=== PATIENT | female | born 1960 | race Caucasian/White ===

== ENCOUNTER 2016-04-06 21:14 | Emergency (ER) | payer MEDICAID, MEDICARE ==
[2016-04-06] MEDS ORDERED: MECLIZINE 12.5 MG TAB PO STA (22:01)
[2016-04-06] MEDS ORDERED: SODIUM CHLORIDE 0.9% 1,000 ML IV STA (22:01)
[2016-04-06 22:16] VITALS: RESP 20
[2016-04-06 22:30] LABS: Basophils % (A) 1 %; CH 31.4; CHCM 34.2; Eosinophils # (A) 0.2 k/uL (0-0.7); Eosinophils % (A) 4 %; HCT 40.6 % (34.0-46.0); Luc # (Auto) 0.14; Luc % (Auto) 2; Lymphocytes # (A) 1.2 k/uL (1.0-4.8); Lymphocytes % (A) 20 %; MCH 31.8 pg (25.0-35.0); MCHC 34.5 g/dL (31.0-37.0); MCV 92.1 fL (80.0-100.0); Mean Platelet Volume 7.5; Monocytes # (A) 0.5 k/uL (0-1.0); Monocytes % (A) 8 %; Neutrophils # (A) 3.9 k/uL (1.3-7.7); Neutrophils % (A) 66 %; RBC 4.41 m/uL (3.80-5.40); RDW 13.4 % (11.5-15.5); WBC (Perox) 5.88
--- NOTE | 2016-04-06 22:35 | ED ---
Dizziness HPI - General Chief Complaint: Dizziness Stated Complaint: SOB Time Seen by Provider: 04/06/16 21:38 Source: patient, EMS, RN notes reviewed Mode of arrival: EMS Limitations: no limitations - History of Present Illness Initial Comments: 56-year-old female presents to the emergency department with a chief complaint of dizziness. The patient states that today she started to feel dizzy. Patient states it started all of a sudden today. Patient states that she moves her head she feels the dizziness. Patient states she had an episode of blacking out as well. Patient states that she was feeling somewhat anxious in the exam. Patient states that she hasn't been sick lately. Patient states the chest, came on all of a sudden. Patient states she's never had anything like this before. Patient denies headache any falls traumas or injuries. Patient states that she is not currently having any other symptoms at this time. Patient denies any recent fever, chills, shortness of breath, chest pain, back pain, abdominal pain, nausea vomiting, numbness or tingling, dysuria or hematuria, constipation or diarrhea, headaches or visual changes, or any other current symptoms. - Related Data Home Medications Medication Instructions Recorded Confirmed Calcium Carbonate [Antacid] 600 mg PO DAILY 06/30/13 04/06/16 Flaxseed [Flaxseed Oil] 1,000 mg PO DAILY 06/30/13 04/06/16 Levothyroxine Sodium [Synthroid] 100 mcg PO DAILY 06/30/13 04/06/16 Montelukast [Singulair] 10 mg PO DAILY 06/30/13 04/06/16 Aclidinium [place] [Tudorza 1 puff PO RT-BID 04/06/16 04/06/16 Pressair] Aspirin 81 mg PO DAILY 04/06/16 04/06/16 Butalb/APAP/Caff 50-325-40Mg 1 tab PO Q4H PRN 04/06/16 04/06/16 [Fioricet 50-325-40] Magnesium 200 mg PO DAILY 04/06/16 04/06/16 Mometasone/Formoterol [Dulera 200 2 puff INHALATION RT-BID 04/06/16 04/06/16 Mcg/5 Mcg Inhaler] predniSONE 5 mg PO DAILY 04/06/16 04/06/16 Previous Rx's Medication Instructions Recorded Meclizine [Antivert] 12.5 mg PO Q6H #20 tablet 04/06/16 Allergies Allergy/AdvReac Type Severity Reaction Status Date / Time Iodinated Contrast Media - Allergy Itching Verified 04/06/16 22:34 Oral and [Iodinated Contrast Media - IV Dye] Review of Systems ROS Statement: Those systems with pertinent positive or pertinent negative responses have been documented in the HPI. ROS Other: All systems not noted in ROS Statement are negative. Past Medical History Past Medical History: Asthma, Cancer, GERD/Reflux, Hyperlipidemia Additional Past Medical History / Comment(s): BREAST CANCER History of Any Multi-Drug Resistant Organisms: None Reported Past Surgical History: Hysterectomy Additional Past Surgical History / Comment(s): mastectomy 2001, deviated septum Past Anesthesia/Blood Transfusion Reactions: No Reported Reaction Past Psychological History: Anxiety Smoking Status: Never smoker Past Alcohol Use History: Occasional Past Drug Use History: None Reported General Exam - General Exam Comments Initial Comments: General: The patient is awake and alert, in no distress, and does not appear acutely ill. Eye: Pupils are equal, round and reactive to light, extra-ocular movements are intact; there is normal conjunctiva bilaterally. No signs of icterus. Ears, nose, mouth and throat: There are moist mucous membranes and no oral lesions. Neck: The neck is supple, there is no tenderness. Cardiovascular: There is a regular rate and rhythm. No murmur, rub or gallop is appreciated. Respiratory: Lungs are clear to auscultation, respirations are non-labored, breath sounds are equal. No wheezes, stridor, rales, or rhonchi. Gastrointestinal: Soft, non-distended, non-tender abdomen without masses or organomegaly noted. There is no rebound or guarding present. No CVA tenderness. Bowel sounds are unremarkable. Back: There is no tenderness to palpation in the midline. There is no obvious deformity. No rashes noted. Musculoskeletal: Normal ROM, no tenderness, There is no pedal edema. There is no calf tenderness or swelling. Sensation intact. Pulses equal bilaterally 2+. Neurological: CN II-XII intact, There are no obvious motor or sensory deficits. Coordination appears grossly intact. Speech is normal. Negative Romberg's, no ataxia, normal [id number], equal strength throughout. Skin: Skin is warm and dry and no rashes or lesions are noted. Psychiatric: Cooperative, appropriate mood & affect, normal judgment. Limitations: no limitations Course Vital Signs 04/06/16 04/06/16 04/06/16 21:18 22:15 23:18 Temperature 97.6 F 98.4 F 97.7 F Pulse Rate 88 79 83 Respiratory 18 20 20 Rate Blood Pressure 154/92 129/79 131/77 O2 Sat by Pulse 95 92 L 94 L Oximetry EKG Findings - EKG Comments: EKG Findings:: Number sinus rhythm, possible left atrial enlargement, ventricular rate 90 WI interval 156 Medical Decision Making - Medical Decision Making 56-year-old female presents emergency department with a chief complaint of dizziness. At this time patient's vertigo has completely resolved. Patient's workup was otherwise benign. We did discuss that we'll start Antivert for home. Discussed comparison follow-up. Patient stated she understood all questions were answered. She'll be discharged. - Lab Data Result diagrams: 04/06/16 22:11 04/06/16 22:11 Lab Results 04/06/16 04/06/16 04/06/16 Range/Units 22:11 22:11 22:11 WBC 6.0 (3.8-10.6) k/uL RBC 4.41 (3.80-5.40) m/uL Hgb 14.0 (11.4-16.0) gm/dL Hct 40.6 (34.0-46.0) % MCV 92.1 (80.0-100.0) fL MCH 31.8 (25.0-35.0) pg MCHC 34.5 (31.0-37.0) g/dL RDW 13.4 (11.5-15.5) % Plt Count 199 (150-450) k/uL Neutrophils % 66 % Lymphocytes % 20 % Monocytes % 8 % Eosinophils % 4 % Basophils % 1 % Neutrophils # 3.9 (1.3-7.7) k/uL Lymphocytes # 1.2 (1.0-4.8) k/uL Monocytes # 0.5 (0-1.0) k/uL Eosinophils # 0.2 (0-0.7) k/uL Basophils # 0.0 (0-0.2) k/uL PT (9.0-12.0) sec INR (<1.1) APTT (22.0-30.0) sec Sodium 141 (137-145) mmol/L Potassium 4.2 (3.5-5.1) mmol/L Chloride 110 H (98-107) mmol/L Carbon Dioxide 21 L (22-30) mmol/L Anion Gap 10 mmol/L BUN 13 (7-17) mg/dL Creatinine 0.64 (0.52-1.04) mg/dL Est GFR (MDRD) Af Amer >60 (>60 ml/min/1.73 sqM) Est GFR (MDRD) Non-Af >60 (>60 ml/min/1.73 sqM) Glucose 92 (74-99) mg/dL Calcium 9.0 (8.4-10.2) mg/dL Magnesium 1.9 (1.6-2.3) mg/dL Total Bilirubin 0.8 (0.2-1.3) mg/dL AST 51 H (14-36) U/L ALT 50 (9-52) U/L Alkaline Phosphatase 81 (38-126) U/L Total Creatine Kinase 140 H (30-135) U/L CK-MB (CK-2) 1.0 (0.0-2.4) ng/mL CK-MB (CK-2) Rel Index 0.7 Troponin I 0.014 (0.000-0.034) ng/mL Total Protein 6.9 (6.3-8.2) g/dL Albumin 4.0 (3.5-5.0) g/dL Urine Color Urine Appearance (Clear) Urine pH (5.0-8.0) Ur Specific [place] (1.001-1.035) Urine Protein (Negative) Urine Glucose (UA) (Negative) Urine Ketones (Negative) Urine Blood (Negative) Urine Nitrate (Negative) Urine Bilirubin (Negative) Urine Urobilinogen (<2.0) mg/dL Ur Leukocyte Esterase (Negative) 04/06/16 04/06/16 Range/Units 22:11 22:23 WBC (3.8-10.6) k/uL RBC (3.80-5.40) m/uL Hgb (11.4-16.0) gm/dL Hct (34.0-46.0) % MCV (80.0-100.0) fL MCH (25.0-35.0) pg MCHC (31.0-37.0) g/dL RDW (11.5-15.5) % Plt Count (150-450) k/uL Neutrophils % % Lymphocytes % % Monocytes % % Eosinophils % % Basophils % % Neutrophils # (1.3-7.7) k/uL Lymphocytes # (1.0-4.8) k/uL Monocytes # (0-1.0) k/uL Eosinophils # (0-0.7) k/uL Basophils # (0-0.2) k/uL PT 10.7 (9.0-12.0) sec INR 1.1 (<1.1) APTT 24.0 (22.0-30.0) sec Sodium (137-145) mmol/L Potassium (3.5-5.1) mmol/L Chloride (98-107) mmol/L Carbon Dioxide (22-30) mmol/L Anion Gap mmol/L BUN (7-17) mg/dL Creatinine (0.52-1.04) mg/dL Est GFR (MDRD) Af Amer (>60 ml/min/1.73 sqM) Est GFR (MDRD) Non-Af (>60 ml/min/1.73 sqM) Glucose (74-99) mg/dL Calcium (8.4-10.2) mg/dL Magnesium (1.6-2.3) mg/dL Total Bilirubin (0.2-1.3) mg/dL AST (14-36) U/L ALT (9-52) U/L Alkaline Phosphatase (38-126) U/L Total Creatine Kinase (30-135) U/L CK-MB (CK-2) (0.0-2.4) ng/mL CK-MB (CK-2) Rel Index Troponin I (0.000-0.034) ng/mL Total Protein (6.3-8.2) g/dL Albumin (3.5-5.0) g/dL Urine Color Colorless Urine Appearance Clear (Clear) Urine pH 6.5 (5.0-8.0) Ur Specific [place] 1.001 (1.001-1.035) Urine Protein Negative (Negative) Urine Glucose (UA) Negative (Negative) Urine Ketones Negative (Negative) Urine Blood Negative (Negative) Urine Nitrate Negative (Negative) Urine Bilirubin Negative (Negative) Urine Urobilinogen <2.0 (<2.0) mg/dL Ur Leukocyte Esterase Negative (Negative) Disposition Clinical Impression: Vertigo Disposition: HOME SELF-CARE Condition: Stable Instructions: Vertigo (ED) Additional Instructions: Please use medication as discussed. Please follow up with family doctor if symptoms have not improved over the next two days. Please return to the emergency room if your symptoms increase or worsen or for any other concerns. Prescriptions: Meclizine [Antivert] 12.5 mg PO Q6H #20 tablet Referrals: Errol Mccollum MD [Primary Care Provider] - 1-2 days Time of Disposition: 23:29
[2016-04-06 22:41] LABS: Appearance,Urine Clear (Clear); Bilirubin,Urine Negative (Negative); Glucose,Urine (UA) Negative (Negative); Ketones,Urine Negative (Negative); Leukocyte Esterase,Urine Negative (Negative); Nitrite,Urine Negative (Negative); PH, Urine 6.5 (5.0-8.0); Protein,Urine Negative (Negative); Specific Gravity,Urine 1.001 (1.001-1.035); UA Billing (MACRO vs. MICRO) CHEM; Urobilinogen,Urine <2.0 mg/dL (<2.0)
[2016-04-06 22:47] LABS: ALT 50 U/L (9-52); Alkaline Phosphatase 81 U/L (38-126); Anion Gap 10 mmol/L; Blood Urea Nitrogen 13 mg/dL (7-17); Carbon Dioxide 21 mmol/L (22-30); Chloride 110 mmol/L (98-107); Glucose 92 mg/dL (74-99); Magnesium 1.9 mg/dL (1.6-2.3); Non-African American GFR(MDRD) >60 (>60 ml/min/1.73 sqM); Sodium 141 mmol/L (137-145); Total Bilirubin 0.8 mg/dL (0.2-1.3); Total Protein 6.9 g/dL (6.3-8.2)
[2016-04-06 22:49] LABS: INR 1.1 (<1.1); Prothrombin Time 10.7 sec (9.0-12.0)
[2016-04-06 22:59] LABS: AST 51 U/L (14-36); Potassium 4.2 mmol/L (3.5-5.1)
--- NOTE | 2016-04-06 22:59 | CT ---
EXAMINATION TYPE: CT brain wo con DATE OF EXAM: 04/06/2016 10:50 PM COMPARISON: NONE HISTORY: Pt states of dizziness today. CT DLP: 1067.0 mGycm Automated exposure control for dose reduction was used. FINDINGS: There is no acute intracranial hemorrhage, mass effect, or midline shift identified. The ventricles and sulci are within normal limits in size. Mild benign-appearing basal ganglion calcification is not ed bilaterally. The globes are intact. Mucous retention cyst is noted in the left maxillary sinus with chronic sinusitis changes. Mild mucos al thickening is noted in the right maxillary sinus and ethmoid sinuses.. IMPRESSION: No acute intracranial hemorrhage, mass effect, or midline shift is seen. Chronic sinusitis changes.
--- NOTE | 2016-04-06 23:10 | XR ---
EXAMINATION TYPE: XR chest 2V DATE OF EXAM: 04/06/2016 10:47 PM COMPARISON: 08/31/2014 HISTORY: Chest pain. TECHNIQUE: Frontal and lateral views of the chest are obtained. FINDINGS: The study is limited due to multiple artifacts. Increased opacities of both lungs are most likely rel ated to superimposed breast tissue and pectus excavatum changes. There are also surgical clips in the right axilla with possible right breast surgery and implant changes. Changes. There is no focal air space opacity, pleural effusion, or pneumothorax seen. There is mild cardiomegaly. Atherosclerotic ca lcification is noted in the aortic arch.. Mild to moderate degenerative changes in the thoracic spi ne. The osseous structures are intact. IMPRESSION: 1. No definite focal pneumonia. 2. Postsurgical changes of right breast and right breast implant in place. 3. Pectus excavatum changes.
[2016-04-06 23:14] LABS: Troponin I 0.014 ng/mL (0.000-0.034)
[2016-04-06 23:19] VITALS: BP 131/77; PULSE 83; TEMP 97.7
== END 2016-04-06 23:39 | disposition home or self-care (01) ==
LOC: EC 21:14
DX: R42 Dizziness and giddiness (principal); Z79.899 Other long term (current) drug therapy; Z91.041 Radiographic dye allergy status; Z79.82 Long term (current) use of aspirin; Z79.51 Long term (current) use of inhaled steroids; Z79.52 Long term (current) use of systemic steroids; Z85.3 Personal history of malignant neoplasm of breast
CPT/HCPCS: 36415; 70450; 71020; 80053; 81003; 82550; 82553; 83735; 84484; 85025; 85610; 85730; 93005; 96360; 99285

== ENCOUNTER 2016-06-22 12:00 | Day surgery (SDC) | payer MEDICAID, MEDICARE ==
[2016-06-21 08:56] VITALS: BMI 23.5
[~2016-06-22 12:00] MED LIST: LACTATED RINGERS 1,000 ML IV SCH; LIDOCAINE 1% 20 ML VIAL (10MG/ML) FOR IV START INTRADERMA PRN
[2016-06-22 12:56] VITALS: TEMP 96.7
[2016-06-22] MEDS ORDERED: PROPOFOL 10 MG/ML 20 ML VIAL IV ONE (14:28)
[2016-06-22 15:04] VITALS: RESP 18
--- NOTE | 2016-06-22 15:05 | P.PCN ---
Date of Procedure: 06/22/16 Procedure(s) Performed: Procedures: 1. Esophagogastroduodenoscopy and biopsy. 2. Total colonoscopy. Preoperative diagnosis: 1. Chronic reflux symptoms. 2. History of polyps and recent change in bowel habits. Postoperative diagnosis: 1. Small sliding hiatal hernia with no obvious esophagitis or complicated reflux disease. 2. Mild antral gastritis. 3. Sigmoid diverticulosis. Preparation: HalfLytely prep. Sedation: Was provided by anesthesia. Brief clinical history: The patient is a 56-year-old female who is referred for this evaluation for the above reasons. She has history of polyps and her last colonoscopy was around 3 years ago. In addition she has chronic reflux symptoms requiring therapy but no alarm symptoms. Within the last month or so she has been having alternating diarrhea and constipation. Procedure: With the patient on her left lateral decubitus position and after informed consent and adequate sedation, I passed the Olympus-GIF 160 video upper endoscope through the cricopharyngeus down the esophagus. EG junction was around 40 cm from the incisors and there was a small sliding hiatal hernia but no obvious esophagitis or complicated reflux disease. The endoscope was then passed into the stomach which was insufflated with air and inspected in detail including the retroflex view in the cardia. There was some mottling and erythema in the antrum but no ulcers or erosions. Pyloric channel did not show any ulcers. Duodenal bulb, post bulbar area and descending duodenum showed minimal erythema. I obtained multiple biopsies from the duodenum, antrum and esophagus then the endoscope was withdrawn and I proceeded to do colonoscopy. Perianal area did not show any fissures or fistulas. There were no masses felt on digital rectal examination. The Olympus CFQ 160L video colonoscope was then inserted in the rectum in the usual fashion and advanced to the cecum. The preparation was less than ideal with some sticky secretions and fecal debris noted in certain areas not possible to cleanse completely. No obvious polyps or tumors were seen. Where visualized, the mucosa appeared healthy with no edema, erythema, friability, ulceration, exudation or spontaneous bleeding. Multiple diverticular orifices were seen scattered in the sigmoid with no evidence of acute diverticulitis or strictures. I retroflexed the endoscope in the rectum before the endoscope was withdrawn. The patient tolerated the procedure well. Plan: The patient was reassured. Discussed dietary measures. She will follow- up with you as planned and I recommended repeat colonoscopy in 3 years.
[2016-06-22 15:20] VITALS: BP 119/79; PULSE 72
== END 2016-06-22 15:32 | disposition home or self-care (01) ==
LOC: ORWHC2ENDO 12:00
DX: K21.0 Gastro-esophageal reflux disease with esophagitis (principal); K20.0 Eosinophilic esophagitis; K29.50 Unspecified chronic gastritis without bleeding; K44.9 Diaphragmatic hernia without obstruction or gangrene; K57.30 Diverticulosis of large intestine without perforation or abscess without bleeding; Z86.010 Personal history of colon polyps; J45.909 Unspecified asthma, uncomplicated; E07.9 Disorder of thyroid, unspecified; Z79.891 Long term (current) use of opiate analgesic; Z79.51 Long term (current) use of inhaled steroids; Z79.899 Other long term (current) drug therapy; Z91.041 Radiographic dye allergy status
CPT/HCPCS: 88305; 88342; 45378; 43239; J2704

== ENCOUNTER → 2016-08-31 | Outpatient (CLI) | payer MEDICAID, MEDICARE ==
--- NOTE | 2016-09-01 11:10 | ECHOF ---
Referral Reason:R55 Syncope MEASUREMENTS -------- HEIGHT: 170.2 cm WEIGHT: 68.9 kg BP: RVIDd: 2.2 cm (< 3.3) IVSd: 1.1 cm (0.6 - 1.1) LVIDd: 4.4 cm (3.9 - 5.3) LVPWd: 1.0 cm (0.6 - 1.1) IVSs: 1.2 cm LVIDs: 3.2 cm LVPWs: 1.1 cm LA Diam: 2.9 cm (2.7 - 3.8) LAESV Index (A-L): 22.40 ml/m MV EXCURSION: 16.399 mm (> 18.000) MV EF SLOPE: 74 mm/s (70 - 150) EPSS: 0.8 cm MV E Toño: 0.39 m/s MV DecT: 212 ms MV A Toño: 0.58 m/s MV E/A Ratio: 0.67 RAP: 5.00 mmHg RVSP: 24.64 mmHg FINDINGS -------- Sinus rhythm. This was a technically adequate study. Pt. Has Breast inplants LV size, wall thickness and systolic function are normal, with an EF greater than 55%. The right ventricle is normal in size. Normal LA size by volume 22+/-6 ml/m2. The right atrial size is normal. Highly mobile atrial septum The aortic valve is trileaflet, and appears structurally normal. No aortic stenosis or regurgitation. The mitral valve leaflets are mildly thickened. Mild mitral regurgitation is present. Mild tricuspid regurgitation present. There is no evidence of pulmonary hypertension. The right ventricular systolic pressure, as measured by Doppler, is 24.64mmHg. Trace/mild (physiologic) pulmonic regurgitation. The aortic root size is normal. Echo free space may represent effusion or a pericardial fat pad. CONCLUSIONS -------- 1. This was a technically adequate study. 2. There is no evidence of pulmonary hypertension. 3. Trace/mild (physiologic) pulmonic regurgitation. 4. The aortic root size is normal. 5. Echo free space may represent effusion or a pericardial fat pad. 6. Pt. Has Breast inplants 7. LV size, wall thickness and systolic function are normal, with an EF greater than 55%. 8. Normal LA size by volume 22+/-6 ml/m2. 9. Highly mobile atrial septum 10. The aortic valve is trileaflet, and appears structurally normal. No aortic stenosis or regurgitation. 11. The mitral valve leaflets are mildly thickened. 12. Mild mitral regurgitation is present. 13. Mild tricuspid regurgitation present. [employer] MANAGER: Anna Espinoza RDCS
== END | disposition home or self-care (01) ==
LOC: RADECHMAIN 13:03
PROVIDERS: ATTEND Family Medicine
DX: I08.1 Rheumatic disorders of both mitral and tricuspid valves (principal)
CPT/HCPCS: 93306

== ENCOUNTER 2016-09-22 10:20 | Emergency (ER) | payer MEDICAID, MEDICARE ==
[2016-09-22 10:43] VITALS: TEMP 98
[2016-09-22] MEDS ORDERED: methylPREDNISolone SOD SUCCI 125 MG/2 ML VIAL IV STA (11:25)
[2016-09-22] MEDS ORDERED: IPRATROPIUM-ALBUTEROL 3 ML NEB INHALATION STA (11:25)
--- NOTE | 2016-09-22 11:29 | ED ---
General Adult HPI - General Chief complaint: Shortness of Breath Stated complaint: RAQUEL Time Seen by Provider: 09/22/16 11:18 Source: patient, RN notes reviewed Mode of arrival: ambulatory Limitations: no limitations - History of Present Illness Initial comments: Patient is a pleasant 56-year-old female presenting to the emergency department with difficulty in breathing. Onset of symptoms was a couple of days ago however worse today. Patient took her inhaler at home without much improvement. Patient has had sinus congestion. Patient did have a headache earlier today that she attributes to her sinus pressure. Headache is near resolved at this point. No fevers. Occasional dry cough. No chest pain. No abdominal pain. Dyspnea does feel like previous asthma history. - Related Data Home Medications Medication Instructions Recorded Confirmed Flaxseed [Flaxseed Oil] 1,000 mg PO DAILY 06/30/13 09/22/16 Levothyroxine Sodium [Synthroid] 100 mcg PO DAILY 06/30/13 09/22/16 Montelukast [Singulair] 10 mg PO DAILY 06/30/13 09/22/16 Aspirin 81 mg PO DAILY 04/06/16 09/22/16 Magnesium 200 mg PO DAILY 04/06/16 09/22/16 Mometasone/Formoterol [Dulera 200 2 puff INHALATION RT-BID 04/06/16 09/22/16 Mcg/5 Mcg Inhaler] Atorvastatin Calcium [Lipitor] 20 mg PO DAILY 09/22/16 09/22/16 Calcium Carbonate [Calcium] 1,200 mg PO DAILY 09/22/16 09/22/16 Previous Rx's Medication Instructions Recorded Azithromycin [Zithromax Z-pack] 250 mg PO DIRECTED #6 tab 09/22/16 predniSONE 20 mg PO BID #10 tab 09/22/16 Allergies Allergy/AdvReac Type Severity Reaction Status Date / Time Iodinated Contrast- Oral and Allergy Itching Verified 09/22/16 11:36 IV Dye [Iodinated Contrast Media - IV Dye] Review of Systems ROS Statement: Those systems with pertinent positive or pertinent negative responses have been documented in the HPI. ROS Other: All systems not noted in ROS Statement are negative. Constitutional: Denies: fever, chills Eyes: Denies: eye pain ENT: Reports: congestion. Denies: ear pain Respiratory: Reports: cough, dyspnea Cardiovascular: Denies: chest pain Endocrine: Denies: fatigue Gastrointestinal: Denies: abdominal pain Genitourinary: Denies: dysuria Musculoskeletal: Denies: back pain Skin: Denies: rash Neurological: Denies: weakness Past Medical History Past Medical History: Asthma, Cancer, GERD/Reflux, Hyperlipidemia Additional Past Medical History / Comment(s): BREAST CANCER History of Any Multi-Drug Resistant Organisms: None Reported Past Surgical History: Hysterectomy Additional Past Surgical History / Comment(s): mastectomy 2002, deviated septum Past Anesthesia/Blood Transfusion Reactions: No Reported Reaction Past Psychological History: No Psychological Hx Reported Smoking Status: Never smoker Past Alcohol Use History: None Reported Past Drug Use History: None Reported - Past Family History Mother Family Medical History: No Reported History General Exam Limitations: no limitations General appearance: alert, in no apparent distress Head exam: Present: atraumatic Eye exam: Present: normal appearance, PERRL, EOMI ENT exam: Present: normal oropharynx, other (Tenderness over the bilateral maxillary sinuses) Neck exam: Present: normal inspection Respiratory exam: Present: wheezes. Absent: respiratory distress Cardiovascular Exam: Present: regular rate, normal rhythm GI/Abdominal exam: Present: soft. Absent: tenderness Extremities exam: Present: normal inspection. Absent: pedal edema, calf tenderness Neurological exam: Present: alert, CN II-XII intact. Absent: motor sensory deficit Expanded Speech: Present: fluid speech Cranial nerves: EOM's Intact: Normal, Facial Sensation: Normal Sensory exam: Upper Extremity Light Touch: Normal, Lower Extremity Light Touch: Normal Motor strength exam: RUE: 5, LUE: 5, RLE: 5, LLE: 5 Eye Response: (4) open spontaneously Motor Response: (6) obeys commands Verbal Response: (5) oriented Psychiatric exam: Present: normal affect, normal mood Skin exam: Present: normal color Course Vital Signs 09/22/16 09/22/16 09/22/16 10:40 11:35 11:44 Temperature 98 F Pulse Rate 88 76 78 Respiratory 18 Rate Blood Pressure 160/99 O2 Sat by Pulse 90 L Oximetry 09/22/16 11:56 Temperature Pulse Rate 78 Respiratory 18 Rate Blood Pressure 144/94 O2 Sat by Pulse 94 L Oximetry EKG Findings - EKG Comments: EKG Findings:: Normal sinus rhythm 77. AL 150. QRS 88. QT 396. QTc 440. Normal axis. Normal QRS. No acute ST change. Medical Decision Making - Medical Decision Making Patient reevaluated and resting comfortably in bed. Patient states she feels much better and requests discharge home. Lung laurent still with mild expiratory wheeze. Patient does not want another breathing treatment at this time. Pulse ox 94% on room air. Patient states she does have nebulizers at home that she will continue to use. - Lab Data Result diagrams: 09/22/16 10:55 09/22/16 10:55 Lab Results 09/22/16 09/22/16 Range/Units 10:55 10:55 WBC 6.2 (3.8-10.6) k/uL RBC 5.10 (3.80-5.40) m/uL Hgb 15.9 (11.4-16.0) gm/dL Hct 44.9 (34.0-46.0) % MCV 88.1 (80.0-100.0) fL MCH 31.1 (25.0-35.0) pg MCHC 35.3 (31.0-37.0) g/dL RDW 13.5 (11.5-15.5) % Plt Count 245 (150-450) k/uL Neutrophils % 44 % Lymphocytes % 23 % Monocytes % 7 % Eosinophils % 23 % Basophils % 1 % Neutrophils # 2.8 (1.3-7.7) k/uL Lymphocytes # 1.4 (1.0-4.8) k/uL Monocytes # 0.4 (0-1.0) k/uL Eosinophils # 1.4 H (0-0.7) k/uL Basophils # 0.0 (0-0.2) k/uL Manual Slide Review Performed RBC Morphology Normal Sodium 145 (137-145) mmol/L Potassium 4.4 (3.5-5.1) mmol/L Chloride 109 H (98-107) mmol/L Carbon Dioxide 24 (22-30) mmol/L Anion Gap 12 mmol/L BUN 11 (7-17) mg/dL Creatinine 0.60 (0.52-1.04) mg/dL Est GFR (MDRD) Af Amer >60 (>60 ml/min/1.73 sqM) Est GFR (MDRD) Non-Af >60 (>60 ml/min/1.73 sqM) Glucose 87 (74-99) mg/dL Calcium 9.8 (8.4-10.2) mg/dL Total Bilirubin 0.7 (0.2-1.3) mg/dL AST 33 (14-36) U/L ALT 39 (9-52) U/L Alkaline Phosphatase 104 (38-126) U/L Total Protein 7.3 (6.3-8.2) g/dL Albumin 4.4 (3.5-5.0) g/dL - Radiology Data Radiology results: image reviewed (Chest x-ray shows no acute process) Disposition Clinical Impression: Asthma with exacerbation, Sinusitis Disposition: HOME SELF-CARE Condition: Stable Instructions: Asthma (ED), Sinusitis (ED) Additional Instructions: Please follow-up with your primary care physician in the next day or 2 for recheck. Return for difficulty breathing, fevers, worsening symptoms or other concerns. Prescriptions: Azithromycin [Zithromax Z-pack] 250 mg PO DIRECTED #6 tab predniSONE 20 mg PO BID #10 tab Referrals: Errol Mccollum MD [Primary Care Provider] - 1-2 days Time of Disposition: 12:23
[2016-09-22 11:38] LABS: Basophils % (A) 1 %; CH 30.3; CHCM 34.6; Eosinophils # (A) 1.4 k/uL (0-0.7); Eosinophils % (A) 23 %; HCT 44.9 % (34.0-46.0); HDW 2.86; HGB 15.9 gm/dL (11.4-16.0); Luc # (Auto) 0.16; Luc % (Auto) 3; Lymphocytes # (A) 1.4 k/uL (1.0-4.8); Lymphocytes % (A) 23 %; MCH 31.1 pg (25.0-35.0); MCHC 35.3 g/dL (31.0-37.0); MCV 88.1 fL (80.0-100.0); Mean Platelet Volume 7.2; Monocytes # (A) 0.4 k/uL (0-1.0); Monocytes % (A) 7 %; Neutrophils # (A) 2.8 k/uL (1.3-7.7); Neutrophils % (A) 44 %; RDW 13.5 % (11.5-15.5); WBC 6.2 k/uL (3.8-10.6); WBC (Perox) 6.26
[2016-09-22 11:47] LABS: ALT 39 U/L (9-52); AST 33 U/L (14-36); Alkaline Phosphatase 104 U/L (38-126); Anion Gap 12 mmol/L; Blood Urea Nitrogen 11 mg/dL (7-17); Calcium 9.8 mg/dL (8.4-10.2); Carbon Dioxide 24 mmol/L (22-30); Chloride 109 mmol/L (98-107); Glucose 87 mg/dL (74-99); Non-African American GFR(MDRD) >60 (>60 ml/min/1.73 sqM); Potassium 4.4 mmol/L (3.5-5.1); Sodium 145 mmol/L (137-145); Total Bilirubin 0.7 mg/dL (0.2-1.3); Total Protein 7.3 g/dL (6.3-8.2)
[2016-09-22 11:53] LABS: Manual Review Performed
[2016-09-22 11:54] LABS: RBC Morphology Normal
--- NOTE | 2016-09-22 12:01 | XR ---
EXAMINATION TYPE: XR chest 2V DATE OF EXAM: 09/22/2016 COMPARISON: 04/06/2016 INDICATION: Difficulty breathing, short of breath, headache TECHNIQUE: Frontal and lateral views of the chest are obtained. FINDINGS: The heart size is normal. The pulmonary vasculature is normal. Lung laurent are clear. Pectus excavatum is present. IMPRESSION: 1. No acute pulmonary process.
[2016-09-22 12:38] VITALS: BP 143/94; PULSE 86; RESP 20
== END 2016-09-22 12:38 | disposition home or self-care (01) ==
LOC: EC 10:20
DX: J45.901 Unspecified asthma with (acute) exacerbation (principal); J32.0 Chronic maxillary sinusitis; E78.5 Hyperlipidemia, unspecified; Z85.3 Personal history of malignant neoplasm of breast; Z91.041 Radiographic dye allergy status; Z79.51 Long term (current) use of inhaled steroids; Z79.82 Long term (current) use of aspirin; Z79.899 Other long term (current) drug therapy
CPT/HCPCS: 99285; 96374; 36415; 94640; 93005; 80053; 85025; 71020; J2930

== ENCOUNTER → 2016-10-24 | Outpatient (CLI) | payer MEDICAID, MEDICARE ==
--- NOTE | 2016-10-24 12:40 | ECHOF ---
Referral Reason:R93.1 Nonspecific (Abnormal) Findings MEASUREMENTS -------- HEIGHT: 170.2 cm WEIGHT: 68.0 kg BP: RVIDd: 2.4 cm (< 3.3) IVSd: 0.9 cm (0.6 - 1.1) LVIDd: 4.4 cm (3.9 - 5.3) LVPWd: 1.0 cm (0.6 - 1.1) EDV(Teich): 86 ml IVSs: 1.2 cm LVIDs: 3.5 cm LVPWs: 1.1 cm %IVS Thck: 27 % ESV(Teich): 52 ml EF(Teich): 40 % %FS: 19 % SV(Teich): 34 ml LA Diam: 2.8 cm (2.7 - 3.8) LALs A4C: 5.0 cm LAAs A4C: 16.8 cm LAESV A-L A4C: 47 ml LAESV MOD A4C: 37 ml Ao Diam: 2.3 cm (2.0 - 3.7) LA Diam: 3.5 cm (2.7 - 3.8) MV EXCURSION: 19.740 mm (> 18.000) MV EF SLOPE: 121 mm/s (70 - 150) EPSS: 0.3 cm MV E Toño: 0.25 m/s MV DecT: 187 ms MV Dec Boyd: 1.4 m/s MV A Toño: 0.58 m/s MV E/A Ratio: 0.44 MV PHT: 54 ms E/E': 3.89 E': 0.07 m/s AV Vmax: 1.05 m/s AV maxP.42 mmHg TR Vmax: 1.19 m/s TR maxP.65 mmHg RAP: 5.00 mmHg RVSP: 10.65 mmHg FINDINGS -------- Undetermined rhythm. This was a technically adequate study. Pt. Has Breast inplants LV size, wall thickness and systolic function are normal, with an EF greater than 55%. The right ventricle is normal in size. The left atrial size is normal. The right atrial size is normal. There is mild aortic valve sclerosis. There is no evidence of aortic regurgitation. Mild mitral annular calcification present. Mild mitral regurgitation is present. Mild tricuspid regurgitation present. There is no evidence of pulmonary hypertension. The right ventricular systolic pressure, as measured by Doppler, is 10.65mmHg. There is no pulmonic regurgitation present. Echo free space indicative of a pericardial fat pad. CONCLUSIONS -------- 1. Pt. Has Breast inplants 2. Echo free space indicative of a pericardial fat pad. 3. LV size, wall thickness and systolic function are normal, with an EF greater than 55%. 4. There is mild aortic valve sclerosis. 5. Mild mitral annular calcification present. 6. Mild mitral regurgitation is present. 7. Mild tricuspid regurgitation present. 8. There is no evidence of pulmonary hypertension. 9. The right ventricular systolic pressure, as measured by Doppler, is 10.65mmHg. 10. There is no pulmonic regurgitation present. RAIL ASSEMBLER: Anna Espinoza RDCS
== END | disposition home or self-care (01) ==
LOC: RADECHMAIN 10:56
PROVIDERS: ATTEND Nurse Practitioner Adult Health
DX: I34.0 Nonrheumatic mitral (valve) insufficiency (principal); I07.1 Rheumatic tricuspid insufficiency; I35.8 Other nonrheumatic aortic valve disorders
CPT/HCPCS: 93306

== ENCOUNTER → 2017-01-15 | Outpatient (CLI) | payer MEDICAID, MEDICARE ==
--- NOTE | 2017-01-16 07:43 | MM ---
Reason for exam: additional evaluation requested from prior study. Last mammogram was performed 1 year and 4 months ago. History: Patient is postmenopausal, has history of breast cancer at age 40, and has history of other cancer at age 40. Implant in the right breast, 2001. Reconstruction of the right breast, 2001. Mastectomy of the right breast, 2001. Chemotherapy, 2001. Saline implants in both breasts, 1994. Took estrogen for 1 year beginning at age 39. Took antineoplastic for 8 years beginning at age 40. Physical Findings: Nurse did not find any significant physical abnormalities on exam. MG 3D Diag Mammo Imp W/Cad LT CC, MLO, ID, spot compression CC, and spot compression MLO view(s) were taken of the left breast. Prior study comparison: September 30, 2015, left breast MG diag mamm implant LT w CAD. March 08, 2015, left breast MG 3d diag mammo imp w/cad LT. There are scattered fibroglandular densities. Post surgical changes in the left breast with a saline implant. On the lelo view, there is a nodular asymmetry inferiorly that disperses on 3D spot. Precautionary 6 month follow up recommended. These results were verbally communicated with the patient and result sheet given to the patient on 01/15/17. ASSESSMENT: Probably benign, BI-RAD 3 RECOMMENDATION: Follow-up diagnostic mammogram of the left breast in 6 months. LAWRENCED
== END | disposition home or self-care (01) ==
LOC: RADMAMWWP 13:37
PROVIDERS: ATTEND Family Medicine
DX: R92.8 Other abnormal and inconclusive findings on diagnostic imaging of breast (principal)
CPT/HCPCS: G0206; G0279

== ENCOUNTER → 2017-08-28 | Outpatient (CLI) | payer MEDICAID, MEDICARE ==
--- NOTE | 2017-08-28 13:46 | MM ---
Reason for exam: follow-up at short interval from prior study. Last mammogram was performed 7 months ago. History: Patient is postmenopausal, has history of breast cancer at age 40, and has history of other cancer at age 40. Implant in the right breast, 2001. Reconstruction of the right breast, 2001. Mastectomy of the right breast, 2001. Chemotherapy, 2001. Saline implants in both breasts, 1994. Took estrogen for 1 year beginning at age 39. Took antineoplastic for 8 years beginning at age 40. Physical Findings: Nurse did not find any significant physical abnormalities on exam. MG 3D Diag Mammo Imp W/Cad LT CC and MLO view(s) were taken of the left breast. Prior study comparison: January 15, 2017, left breast MG 3d diag mammo imp w/cad LT. September 30, 2015, left breast MG diag mamm implant LT w CAD. There are scattered fibroglandular densities. There is no discrete abnormality. Subglandular implants in the left breast redemonstrated. These results were verbally communicated with the patient and result sheet given to the patient on 08/28/17. ASSESSMENT: Benign, BI-RAD 2 RECOMMENDATION: Follow-up diagnostic mammogram of the left breast in 1 year.
== END | disposition home or self-care (01) ==
LOC: RADMAMWWP 12:54
PROVIDERS: ATTEND Family Medicine
DX: R92.8 Other abnormal and inconclusive findings on diagnostic imaging of breast (principal)
CPT/HCPCS: 77061; 77065

== ENCOUNTER 2017-09-11 09:34 | Observation (INO) | payer MEDICAID, MEDICARE ==
[2017-09-11 10:30] LABS: INR 1.1 (<1.2); Partial Thromboplastin Time 23.9 sec (22.0-30.0); Prothrombin Time 10.5 sec (9.0-12.0)
[2017-09-11 10:32] LABS: Basophils % (A) 0 %; Eosinophils # (A) 1.3 k/uL (0-0.7); Eosinophils % (A) 19 %; HCT 43.5 % (34.0-46.0); HGB 14.7 gm/dL (11.4-16.0); Lymphocytes # (A) 1.6 k/uL (1.0-4.8); Lymphocytes % (A) 25 %; MCH 30.8 pg (25.0-35.0); MCHC 33.9 g/dL (31.0-37.0); MCV 90.9 fL (80.0-100.0); Mean Platelet Volume 7.6; Monocytes # (A) 0.5 k/uL (0-1.0); Monocytes % (A) 7 %; Neutrophils % (A) 46 %; Platelet Count 216 k/uL (150-450); RBC 4.79 m/uL (3.80-5.40); RDW 13.6 % (11.5-15.5); WBC 6.6 k/uL (3.8-10.6)
--- NOTE | 2017-09-11 10:37 | XR ---
EXAMINATION TYPE: XR chest 2V DATE OF EXAM: 09/11/2017 COMPARISON: 09/22/2016 HISTORY: Chest pain TECHNIQUE: Frontal and lateral views of the chest are obtained. FINDINGS: There is no focal air space opacity, pleural effusion, or pneumothorax seen. The cardiac silhouette size is within normal limits. The osseous structures are intact. There is redemonstratio n of pectus excavatum and postsurgical changes of the right breast/axilla. IMPRESSION: No acute cardiopulmonary process.
[2017-09-11 10:40] LABS: ALT 31 U/L (9-52); AST 29 U/L (14-36); Albumin 4.2 g/dL (3.5-5.0); Alkaline Phosphatase 93 U/L (38-126); Anion Gap 9 mmol/L; Blood Urea Nitrogen 11 mg/dL (7-17); Calcium 9.4 mg/dL (8.4-10.2); Carbon Dioxide 25 mmol/L (22-30); Chloride 109 mmol/L (98-107); Glucose 95 mg/dL (74-99); Magnesium 2.2 mg/dL (1.6-2.3); Potassium 3.9 mmol/L (3.5-5.1); Sodium 143 mmol/L (137-145); Total Bilirubin 0.6 mg/dL (0.2-1.3); Total Protein 6.7 g/dL (6.3-8.2)
[2017-09-11 10:44] LABS: Creatine Kinase 43 U/L (30-135)
[2017-09-11 10:57] LABS: Creatine Kinase MB 0.9 ng/mL (0.0-2.4); Troponin I <0.012 ng/mL (0.000-0.034)
[2017-09-11] MEDS ORDERED: ASPIRIN 81 MG PO STA (10:58)
--- NOTE | 2017-09-11 10:58 | ED ---
General Adult HPI - General Chief complaint: Chest Pain Stated complaint: heartburn Time Seen by Provider: 09/11/17 09:35 Source: patient, RN notes reviewed Mode of arrival: ambulatory Limitations: no limitations - History of Present Illness Initial comments: This is a 57-year-old female who presents emergency Department complaining that she has had heartburn since yesterday morning it was intermittent at first but last night about 8:00 it came on and stayed on. Patient states the pain radiates to under her left arm which she has not had in the past. Patient also states she's been somewhat short of breath. Patient states she's taken multiple antiacid medications none of which have worked. Patient denies any diaphoresis. Patient denies any nausea. Patient states she has high cholesterol but no high blood pressure or diabetes. Patient also denies smoking. Patient states she came in today because this is not typical of her heartburn. Patient denies any abdominal pain patient denies nausea vomiting diarrhea. Patient denies any headache patient denies numbness or weakness. Patient denies lightheadedness or dizziness. Patient denies any recent fever chills or cough. Patient denies any leg swelling or calf pain. - Related Data Home Medications Medication Instructions Recorded Confirmed Flaxseed [Flaxseed Oil] 1,000 mg PO DAILY 06/30/13 09/11/17 Levothyroxine Sodium [Synthroid] 100 mcg PO DAILY 06/30/13 09/11/17 Montelukast [Singulair] 10 mg PO DAILY 06/30/13 09/11/17 Aspirin 81 mg PO DAILY 04/06/16 09/11/17 Mometasone/Formoterol [Dulera 200 2 puff INHALATION RT-BID 04/06/16 09/11/17 Mcg/5 Mcg Inhaler] Atorvastatin Calcium [Lipitor] 20 mg PO DAILY 09/22/16 09/11/17 Calcium Carbonate [Calcium] 1,200 mg PO DAILY 09/22/16 09/11/17 Albuterol Inhaler [Ventolin Hfa 1 - 2 puff INHALATION RT-Q6H PRN 09/11/17 Inhaler] Linaclotide [Linzess] 145 mcg PO DAILY 09/11/17 09/11/17 Multivitamins, Thera [Multivitamin 1 tab PO DAILY 09/11/17 09/11/17 (formulary)] Omeprazole [PriLOSEC] 20 mg PO DAILY 09/11/17 09/11/17 Allergies Allergy/AdvReac Type Severity Reaction Status Date / Time Iodinated Contrast- Oral and Allergy SWELLING/It Verified 09/11/17 10:22 IV Dye charlene [Iodinated Contrast Media - IV Dye] Review of Systems ROS Statement: Those systems with pertinent positive or pertinent negative responses have been documented in the HPI. ROS Other: All systems not noted in ROS Statement are negative. Past Medical History Past Medical History: Asthma, Cancer, GERD/Reflux, Hyperlipidemia, Hypertension Additional Past Medical History / Comment(s): BREAST CANCER History of Any Multi-Drug Resistant Organisms: None Reported Past Surgical History: Hysterectomy Additional Past Surgical History / Comment(s): mastectomy 2001, deviated septum Past Anesthesia/Blood Transfusion Reactions: No Reported Reaction Past Psychological History: No Psychological Hx Reported Smoking Status: Never smoker Past Alcohol Use History: None Reported Past Drug Use History: None Reported - Past Family History Mother Family Medical History: No Reported History General Exam - General Exam Comments Initial Comments: GENERAL: Patient is well-developed and well-nourished. Patient is nontoxic and well- hydrated and is in mild distress. ENT: Neck is soft and supple. No significant lymphadenopathy is noted. Oropharynx is clear. Moist mucous membranes. Neck has full range of motion without eliciting any pain. EYES: The sclera were anicteric and conjunctiva were pink and moist. Extraocular movements were intact and pupils were equal round and reactive to light. Eyelids were unremarkable. PULMONARY: Unlabored respirations. Good breath sounds bilaterally. No audible rales rhonchi or wheezing was noted. CARDIOVASCULAR: There is a regular rate and rhythm without any murmurs gallops or rubs. ABDOMEN: Soft and nontender with normal bowel sounds. No palpable organomegaly was noted. There is no palpable pulsatile mass. SKIN: Skin is clear with no lesions or rashes and otherwise unremarkable. NEUROLOGIC: Patient is alert and oriented x3. Cranial nerves II through XII are grossly intact. Motor and sensory are also intact. Normal speech, volume and content. Symmetrical smile. MUSCULOSKELETAL: Normal extremities with adequate strength and full range of motion. No lower extremity swelling or edema. No calf tenderness. LYMPHATICS: No significant lymphadenopathy is noted PSYCHIATRIC: Normal psychiatric evaluation. Normal interpersonal interactions appears functionally intact in deals appropriately with others. No signs of depression. No signs of anxiety. Limitations: no limitations Course Vital Signs 09/11/17 09/11/17 09:40 11:04 Temperature 98.2 F Pulse Rate 98 77 Respiratory 20 16 Rate Blood Pressure 133/73 144/95 O2 Sat by Pulse 94 L 97 Oximetry Medical Decision Making - Medical Decision Making EKG shows normal sinus rhythm at 85 bpm IA interval is 152 QRS is 80 QT interval 394 QTC is 468. Patient's EKG shows no ST segment elevation or depression or T wave abnormalities are noted. Chest x-ray shows no acute abnormality. I gave the patient aspirin and Nitropaste in the emergency department and did not have any effect I did also give the patient GI cocktail. Since the patient's pain was on so much any pain she had no passage started her on heparin and admitted her for unstable angina. I spoke with the on-call doctor for Dr. Johnston and admitted the patient wrote admitting orders consult cardiology continue the heparin and aspirin and Nitropaste on the floor. - Lab Data Result diagrams: 09/11/17 09:56 09/11/17 09:56 Lab Results 09/11/17 09/11/17 09/11/17 Range/Units 09:56 09:56 09:56 WBC 6.6 (3.8-10.6) k/uL RBC 4.79 (3.80-5.40) m/uL Hgb 14.7 (11.4-16.0) gm/dL Hct 43.5 (34.0-46.0) % MCV 90.9 (80.0-100.0) fL MCH 30.8 (25.0-35.0) pg MCHC 33.9 (31.0-37.0) g/dL RDW 13.6 (11.5-15.5) % Plt Count 216 (150-450) k/uL Neutrophils % 46 % Lymphocytes % 25 % Monocytes % 7 % Eosinophils % 19 % Basophils % 0 % Neutrophils # 3.0 (1.3-7.7) k/uL Lymphocytes # 1.6 (1.0-4.8) k/uL Monocytes # 0.5 (0-1.0) k/uL Eosinophils # 1.3 H (0-0.7) k/uL Basophils # 0.0 (0-0.2) k/uL PT (9.0-12.0) sec INR (<1.2) APTT (22.0-30.0) sec Sodium 143 (137-145) mmol/L Potassium 3.9 (3.5-5.1) mmol/L Chloride 109 H (98-107) mmol/L Carbon Dioxide 25 (22-30) mmol/L Anion Gap 9 mmol/L BUN 11 (7-17) mg/dL Creatinine 0.61 (0.52-1.04) mg/dL Est GFR (CKD-EPI)AfAm >90 (>60 ml/min/1.73 sqM) Est GFR (CKD-EPI)NonAf >90 (>60 ml/min/1.73 sqM) Glucose 95 (74-99) mg/dL Calcium 9.4 (8.4-10.2) mg/dL Magnesium 2.2 (1.6-2.3) mg/dL Total Bilirubin 0.6 (0.2-1.3) mg/dL AST 29 (14-36) U/L ALT 31 (9-52) U/L Alkaline Phosphatase 93 (38-126) U/L Total Creatine Kinase 43 (30-135) U/L CK-MB (CK-2) 0.9 (0.0-2.4) ng/mL CK-MB (CK-2) Rel Index 2.1 Troponin I <0.012 (0.000-0.034) ng/mL Total Protein 6.7 (6.3-8.2) g/dL Albumin 4.2 (3.5-5.0) g/dL 09/11/17 Range/Units 09:56 WBC (3.8-10.6) k/uL RBC (3.80-5.40) m/uL Hgb (11.4-16.0) gm/dL Hct (34.0-46.0) % MCV (80.0-100.0) fL MCH (25.0-35.0) pg MCHC (31.0-37.0) g/dL RDW (11.5-15.5) % Plt Count (150-450) k/uL Neutrophils % % Lymphocytes % % Monocytes % % Eosinophils % % Basophils % % Neutrophils # (1.3-7.7) k/uL Lymphocytes # (1.0-4.8) k/uL Monocytes # (0-1.0) k/uL Eosinophils # (0-0.7) k/uL Basophils # (0-0.2) k/uL PT 10.5 (9.0-12.0) sec INR 1.1 (<1.2) APTT 23.9 (22.0-30.0) sec Sodium (137-145) mmol/L Potassium (3.5-5.1) mmol/L Chloride (98-107) mmol/L Carbon Dioxide (22-30) mmol/L Anion Gap mmol/L BUN (7-17) mg/dL Creatinine (0.52-1.04) mg/dL Est GFR (CKD-EPI)AfAm (>60 ml/min/1.73 sqM) Est GFR (CKD-EPI)NonAf (>60 ml/min/1.73 sqM) Glucose (74-99) mg/dL Calcium (8.4-10.2) mg/dL Magnesium (1.6-2.3) mg/dL Total Bilirubin (0.2-1.3) mg/dL AST (14-36) U/L ALT (9-52) U/L Alkaline Phosphatase (38-126) U/L Total Creatine Kinase (30-135) U/L CK-MB (CK-2) (0.0-2.4) ng/mL CK-MB (CK-2) Rel Index Troponin I (0.000-0.034) ng/mL Total Protein (6.3-8.2) g/dL Albumin (3.5-5.0) g/dL Critical Care Time Critical Care Time: Yes Total Critical Care Time: 35 Disposition Clinical Impression: Unstable angina pectoris Disposition: ADMITTED IP TO THIS HOSP Referrals: Errol Mccollum MD [Primary Care Provider] - 1-2 days Time of Disposition: 11:24
[2017-09-11] MEDS ORDERED: NITROGLYCERIN OINT 1 INCH/GM PACKET TOPICAL STA (10:59)
[2017-09-11] MEDS ORDERED: MAG HYDROX/AL HYDROX/SIMETH 30 ML, HYOSCYAMINE ELIXIR 10 ML, CIMETIDINE HCL 300 MG, LID... PO STA ×4 (11:12)
[2017-09-11] MEDS ORDERED: HEPARIN SODIUM,PORCINE 5,000 UNIT/ML 1 ML VIAL IV ONE (11:22)
[2017-09-11] MEDS ORDERED: NITROGLYCERIN SL TABS 0.4 MG TAB SUBLINGUAL PRN (11:25)
[2017-09-11] MEDS ORDERED: HEPARIN SOD,PORK IN 0.45% NACL 25,000 UNIT in 0.45% NACL 1 500ML.BAG IV SCH (11:30)
[2017-09-11 13:36] VITALS: TEMP 97.9
[2017-09-11] MEDS ORDERED: ACETAMINOPHEN TAB 325 MG TAB PO PRN (15:29)
[2017-09-11 15:58] LABS: Creatine Kinase 42 U/L (30-135)
[2017-09-11 16:11] LABS: Creatine Kinase MB 0.9 ng/mL (0.0-2.4); Troponin I <0.012 ng/mL (0.000-0.034)
--- NOTE | 2017-09-11 16:59 | CONS ---
CONSULTATION Mrs. Flaherty is a 57-year-old female with history of bronchial asthma, history of gastroesophageal reflux disease who presented with symptoms of chest discomfort that started yesterday and lasted throughout the day. She felt the discomfort could be related to her reflux, but has persisted and because of that came into the hospital and subsequently admitted. She has no exertional chest discomfort. She has exertional dyspnea related to her asthma. She has no dizziness or palpitation. No PND, orthopnea, or peripheral edema. She had an echocardiogram done in December of last year that revealed a preserved left ventricular size and systolic function. She had a stress test in 2014 that revealed no evidence of inducible ischemia. Her coronary risk factors are positive for hyperlipidemia. She is nonsmoker, nondiabetic and no documented hypertension. MEDICATION: At home include omeprazole, Singulair, Dulera, Linzess, Synthroid, calcium, Lipitor 20 mg daily, aspirin and Ventolin. REVIEW OF SYSTEMS: Respiratory system: She has no documented history of recent cough or fever. She has asthma. GI system: She has reflux disease. No recent GI bleeding. She had remote history of ulcer. system: No dysuria or hematuria. Nervous system: No stroke or seizure. PHYSICAL EXAMINATION: 57-year-old female, alert, oriented, in no apparent distress. Blood pressure 119/60 with a heart rate in the 80s. HEAD: Normocephalic. Eyes sclerae are nonicteric. Neck good carotid upstroke. No bruit. No jugular venous distention. Lungs clear to auscultation. HEART: Regular rate and rhythm S1, S2. No S3. No rub. ABDOMEN: Soft, nontender. Positive bowel sounds. No organomegaly. EXTREMITIES: No edema. Intact distal pulses. LAB DATA: Lab data revealed troponin less than 0.012 for 1 sample. BUN and creatinine of 11 and 0.61, hemoglobin of 14.7. EKG revealed a sinus mechanism, normal axis and intervals with minor nonspecific ST-T wave changes and poor R progression. Chest x-ray revealed no acute infiltrate. IMPRESSION: 1. Chest discomfort atypical for ischemic heart disease probable gastrointestinal in origin. 2. History of hyperlipidemia. 3. History of bronchial asthma. RECOMMENDATION: We will obtain serial enzymes. If there is no evidence of abnormality, then I will proceed with obtaining a stress dobutamine echocardiogram. The recommendations were discussed with the patient who was in full understanding and agreement. Thank you for this consult. We will follow with you. MMODL / IJN: [id number] /
--- NOTE | 2017-09-11 17:40 | P.HPIM ---
History of Present Illness This is a pleasant 57 years old female with past medical history of asthma, cancer, GERD, hyperlipidemia, hypertension, breast cancer who presents because of Worsening heartburn, patient gives history of chronic heartburn does not follow up with Dr. Mccollum over the last 10 years. Her heartburn is in the middle of the chest above the epigastrium and moving up at times. It gets worse with certain kinds of food like spicy foods. And she had a negative EGD with Dr. Graves last year as per patient. About 2 days ago she had a bad meal with lasagna and garlic bread and in 2 days her heart been become more severe so she came to the emergency room to get some lidocaine therapy to help her local heartburn however she was admitted for cardiology evaluation. [facility] evaluated the patient and recommended due to stress test. However patient doesn 't want to stay in the hospital she wants to leave AMA and states she can do this test as an outpatient and also if it gets worse she can come to the hospital Patient also had some questions regarding gallbladder is the source of her disease In the ED BMP was unremarkable, CBC was within normal limits, chest x-ray shows no acute cardiopulmonary process Review of Systems CONSTITUTIONAL: No fever, no malaise, no fatigue. HEENT: No recent visual problems or hearing problems. Denied any sore throat. CARDIOVASCULAR: No orthopnea, PND, no palpitations, no syncope. PULMONARY: No shortness of breath, no cough, no hemoptysis. GASTROINTESTINAL: No diarrhea, no nausea, no vomiting, no abdominal pain. Normoactive bowel sounds. NEUROLOGICAL: No headaches, no weakness, no numbness. HEMATOLOGICAL: Denies any bleeding or petechiae. GENITOURINARY: Denies any burning micturition, frequency, or urgency. MUSCULOSKELETAL/RHEUMATOLOGICAL: Denies any joint pain, swelling, or any muscle pain. ENDOCRINE: Denies any polyuria or polydipsia. Past Medical History Past Medical History: Asthma, Cancer, GERD/Reflux, Hyperlipidemia, Hypertension Additional Past Medical History / Comment(s): BREAST CANCER History of Any Multi-Drug Resistant Organisms: None Reported Past Surgical History: Hysterectomy Additional Past Surgical History / Comment(s): mastectomy 2001, deviated septum Past Anesthesia/Blood Transfusion Reactions: No Reported Reaction Past Psychological History: No Psychological Hx Reported Smoking Status: Never smoker Past Alcohol Use History: None Reported Past Drug Use History: None Reported - Past Family History Mother Family Medical History: No Reported History Medications and Allergies Home Medications Medication Instructions Recorded Confirmed Type Flaxseed [Flaxseed Oil] 1,000 mg PO DAILY 06/30/13 09/11/17 History Levothyroxine Sodium [Synthroid] 100 mcg PO DAILY 06/30/13 09/11/17 History Montelukast [Singulair] 10 mg PO DAILY 06/30/13 09/11/17 History Aspirin 81 mg PO DAILY 04/06/16 09/11/17 History Mometasone/Formoterol [Dulera 200 2 puff INHALATION RT-BID 04/06/16 09/11/17 History Mcg/5 Mcg Inhaler] Atorvastatin Calcium [Lipitor] 20 mg PO DAILY 09/22/16 09/11/17 History Calcium Carbonate [Calcium] 1,200 mg PO DAILY 09/22/16 09/11/17 History Albuterol Inhaler [Ventolin Hfa 1 - 2 puff INHALATION RT-Q6H PRN 09/11/17 History Inhaler] Linaclotide [Linzess] 145 mcg PO DAILY 09/11/17 09/11/17 History Multivitamins, Thera [Multivitamin 1 tab PO DAILY 09/11/17 09/11/17 History (formulary)] Omeprazole [PriLOSEC] 20 mg PO DAILY 09/11/17 09/11/17 History Allergies Allergy/AdvReac Type Severity Reaction Status Date / Time Iodinated Contrast- Oral and Allergy SWELLING/It Verified 09/11/17 10:22 IV Dye charlene [Iodinated Contrast Media - IV Dye] Physical Exam Vitals: Vital Signs Temp Pulse Pulse Resp BP BP Pulse Ox 09/11/17 13:35 97.9 F 87 17 119/60 97 09/11/17 12:00 97.0 F L 70 16 120/72 92 L 09/11/17 11:55 80 18 134/76 97 09/11/17 11:04 77 16 144/95 97 09/11/17 09:40 98.2 F 98 20 133/73 94 L Intake and Output 09/11/17 09/11/17 09/11/17 06:59 14:59 22:59 Other: Weight 70.307 kg GENERAL: The patient is alert and oriented x3, not in any acute distress. Well developed, well nourished. HEENT: Pupils are round and equally reacting to light. EOMI. No scleral icterus. No conjunctival pallor. Normocephalic, atraumatic. No pharyngeal erythema. No thyromegaly. CARDIOVASCULAR: S1 and S2 present. No murmurs, rubs, or gallops. PULMONARY: Chest is clear to auscultation, no wheezing or crackles. Chest wall tenderness ABDOMEN: Soft, nontender, nondistended, normoactive bowel sounds. No palpable organomegaly. -Mild epigastric and right upper quadrant tenderness, no rebound tenderness MUSCULOSKELETAL: No joint swelling or deformity. EXTREMITIES: No cyanosis, clubbing, or pedal edema. NEUROLOGICAL: Gross neurological examination did not reveal any focal deficits. SKIN: No rashes. Results CBC & Chem 7: 09/11/17 09:56 09/11/17 09:56 Labs: Abnormal Lab Results - Last 24 Hours (Table) 09/11/17 09/11/17 Range/Units 09:56 09:56 Eosinophils # 1.3 H (0-0.7) k/uL Chloride 109 H (98-107) mmol/L Assessment and Plan Assessment: Heartburn, rule out cardiac causes GERD Hyperlipidemia Hypertension Asthma History of breast cancer, status post mastectomy in 2001 Status post hysterectomy Plan: Patient 57 years old female with many risk factors who presents with heartburn current of chest pain. Continue with same treatment. Continue symptomatic treatment. Cardiology is following the patient. Resume home medication. DVT and GI prophylaxis. Further recommendation based on the clinical course [employer] already evaluated the patient and recommended serial cardiac enzymes, followed by stress dobutamine stress test DVT prophylaxis subcutaneous heparin GI prophylaxis Protonix Despite lengthy discussion with the patient, she wants to sign leaving AMA, because she said her expectation on come to the hospital to get some local treatment for her heartburn and leave from emergency room, however she was admitted for cardiac workup. Patient understands that she's been evaluated for cardiac disease, besides other GI disease. However she wants to leave AMA. Risks including but not limited to the risk of heart attack, cardiac , worsening GI disease, organ dysfunction, and/or are explained to the patient, and she verbalized understanding and she says she knows all these risk however she doesn't want to stay. Based upon my evaluation patient has capacity to make medical decisions.
[2017-09-11] MEDS ORDERED: NITROGLYCERIN OINT 1 INCH/GM PACKET TOPICAL SCH (18:00)
[2017-09-11 18:03] VITALS: BP 97/64; PULSE 74; RESP 16
--- NOTE | 2017-09-12 00:11 | P.DS ---
Providers Date of admission: 09/11/17 11:28 Attending physician: Willy Avila MD Consults: 09/11/17 11:25 Consult Physician Urgent Consulting Provider: [facility] Consult Reason/Comments: Unstable angina Do you want consulting provider notified?: Yes Primary care physician: Errol Mccollum [facility] Course: This is a pleasant 57 years old female with past medical history of asthma, cancer, GERD, hyperlipidemia, hypertension, breast cancer who presents because of Worsening heartburn, patient gives history of chronic heartburn does not follow up with Dr. cMcollum over the last 10 years. Her heartburn is in the middle of the chest above the epigastrium and moving up at times. It gets worse with certain kinds of food like spicy foods. And she had a negative EGD with Dr. Graves last year as per patient. About 2 days ago she had a bad meal with lasagna and garlic bread and in 2 days her heart been become more severe so she came to the emergency room to get some lidocaine therapy to help her local heartburn however she was admitted for cardiology evaluation. [facility] evaluated the patient and recommended due to stress test. However patient doesn 't want to stay in the hospital she wants to leave AMA and states she can do this test as an outpatient and also if it gets worse she can come to the hospital Patient also had some questions regarding gallbladder is the source of her disease In the ED BMP was unremarkable, CBC was within normal limits, chest x-ray shows no acute cardiopulmonary process Despite lengthy discussion with the patient, she wants to sign leaving AMA, because she said her expectation on come to the hospital to get some local treatment for her heartburn and leave from emergency room, however she was admitted for cardiac workup. Patient understands that she's been evaluated for cardiac disease, besides other GI disease. However she wants to leave AMA. Risks including but not limited to the risk of heart attack, cardiac , worsening GI disease, organ dysfunction, and/or are explained to the patient, and she verbalized understanding and she says she knows all these risk however she doesn't want to stay. Based upon my evaluation patient has capacity to make medical decisions. Plan - Discharge Summary New Discharge Prescriptions: No Action Montelukast [Singulair] 10 mg PO DAILY Levothyroxine Sodium [Synthroid] 100 mcg PO DAILY Flaxseed [Flaxseed Oil] 1,000 mg PO DAILY Aspirin 81 mg PO DAILY Mometasone/Formoterol [Dulera 200 Mcg/5 Mcg Inhaler] 2 puff INHALATION RT-BID Atorvastatin Calcium [Lipitor] 20 mg PO DAILY Calcium Carbonate [Calcium] 1,200 mg PO DAILY Linaclotide [Linzess] 145 mcg PO DAILY Multivitamins, Thera [Multivitamin (formulary)] 1 tab PO DAILY Omeprazole [PriLOSEC] 20 mg PO DAILY Albuterol Inhaler [Ventolin Hfa Inhaler] 1 - 2 puff INHALATION RT-Q6H PRN PRN Reason: Shortness Of Breath Discharge Medication List Flaxseed [Flaxseed Oil] 1,000 mg PO DAILY 06/30/13 [History] Levothyroxine Sodium [Synthroid] 100 mcg PO DAILY 06/30/13 [History] Montelukast [Singulair] 10 mg PO DAILY 06/30/13 [History] Aspirin 81 mg PO DAILY 04/06/16 [History] Mometasone/Formoterol [Dulera 200 Mcg/5 Mcg Inhaler] 2 puff INHALATION RT-BID [History] Atorvastatin Calcium [Lipitor] 20 mg PO DAILY 09/22/16 [History] Calcium Carbonate [Calcium] 1,200 mg PO DAILY 09/22/16 [History] Albuterol Inhaler [Ventolin Hfa Inhaler] 1 - 2 puff INHALATION RT-Q6H PRN [History] Linaclotide [Linzess] 145 mcg PO DAILY 09/11/17 [History] Multivitamins, Thera [Multivitamin (formulary)] 1 tab PO DAILY 09/11/17 [History ] Omeprazole [PriLOSEC] 20 mg PO DAILY 09/11/17 [History] Follow up Appointment(s)/Referral(s): [facility] [Provider Group] - 1 Week Errol Mccollum MD [Primary Care Provider] - 1-2 days Discharge Disposition: Left Against Medical Advice
[2017-09-12] MEDS ORDERED: PANTOPRAZOLE 40 MG TABLET PO SCH (07:30)
[2017-09-12] MEDS ORDERED: ASPIRIN 81 MG PO SCH (09:00)
[2017-09-12] MEDS ORDERED: ASPIRIN 325 MG TAB PO SCH (09:00)
[2017-09-12] MEDS ORDERED: ATORVASTATIN 20 MG TAB PO SCH (09:00)
== END 2017-09-11 18:23 | disposition left against medical advice (07) ==
LOC: EC 09:34 → 3OBS 11:28 → 6SEL 13:18
PROVIDERS: ADMIT Internal Medicine; ATTEND Internal Medicine
DX: R07.89 Other chest pain (principal); R12 Heartburn; K21.9 Gastro-esophageal reflux disease without esophagitis; J45.909 Unspecified asthma, uncomplicated; I10 Essential (primary) hypertension; E78.5 Hyperlipidemia, unspecified; Z79.82 Long term (current) use of aspirin; Z79.890 Hormone replacement therapy; Z79.899 Other long term (current) drug therapy; Z79.51 Long term (current) use of inhaled steroids; Z91.041 Radiographic dye allergy status; Z90.10 Acquired absence of unspecified breast and nipple; Z90.710 Acquired absence of both cervix and uterus; Z85.3 Personal history of malignant neoplasm of breast
CPT/HCPCS: 99291 ×2; 96365 ×2; 96366 ×2; 96376 ×2; 36415; 93005; 80053; 82550; 82553; 83735; 84484; 85025; 85610; 85730; 71046; G0378 ×2; J1644 ×2

== ENCOUNTER → 2017-10-03 | Outpatient (CLI) | payer MEDICAID, MEDICARE ==
--- NOTE | 2017-10-03 10:31 | US ---
EXAMINATION TYPE: US abdomen complete DATE OF EXAM: 10/03/2017 COMPARISON: Complete abdominal ultrasound March 04, 2015 CLINICAL HISTORY: R11.2 NAUSEA AND VOMITING. heartburn and indigestion for 1 month EXAM MEASUREMENTS: Liver Length: 15.5 cm Gallbladder Wall: 0.2 cm CBD: 0.6 cm Spleen: 9.6 cm Right Kidney: 10.2 X 4.2 X 4.8 cm Left Kidney: 10.1 X 4.6 X 5.6 cm Pancreas: wnl Liver: wnl Gallbladder: wnl Evidence for sonographic Koenig's sign: NO CBD: wnl Spleen: wnl Right Kidney: wnl Left Kidney: wnl Upper IVC: wnl Abd Aorta: wnl The visualized liver is homogenous. The intrahepatic portion of the IVC and proximal abdominal aorta are within normal limits. There is no evidence of cholelithiasis. Common bile duct is unremarkable . The visualized portions of the pancreas are homogenous. The spleen is unremarkable. Kidneys are symmetric and free of hydronephrosis. No renal lesions are seen. IMPRESSION: No suspicious findings identified to account for patient's symptoms. No significant landaverde e from prior.
== END | disposition home or self-care (01) ==
LOC: RADUSWWP 09:33
PROVIDERS: ATTEND Family Medicine
DX: R11.2 Nausea with vomiting, unspecified (principal)
CPT/HCPCS: 76700

== ENCOUNTER 2018-02-21 06:04 | Observation (INO) | payer MEDICAID, MEDICARE ==
[2018-02-21 06:08] VITALS: TEMP 97.7
[2018-02-21] MEDS ORDERED: SODIUM CHLORIDE 0.9% 1,000 ML IV STA (06:10)
[2018-02-21] MEDS ORDERED: ASPIRIN 81 MG PO STA (06:10)
--- NOTE | 2018-02-21 06:26 | ED ---
Chest Pain HPI - General Source: patient, RN notes reviewed, old records reviewed Mode of arrival: ambulatory Limitations: no limitations <Jesica Trujillo - Last Filed: 02/21/18 06:24> <Bonnie Oconnor - Last Filed: 02/21/18 07:39> - General Chief Complaint: Chest Pain Stated Complaint: Chest Pain Time Seen by Provider: 02/21/18 06:21 - History of Present Illness Initial Comments: Patient is a 58-year-old female presents emergency department today with chief complaint of chest pain with intermittent spasm drained on the left arm. Patient reports it feels like the pain is radiating towards her back. She reports that she has had no cardiac history. She does have history of breast cancer, currently in remission. Patient states she is a nonsmoker. She does have a history of hypertension and hyperlipidemia. Patient states that she felt somewhat weak and lightheaded and dizzy when this was occurring. Patient states that her symptoms started earlier today but progressed throughout the evening. She denies any nausea or vomiting or abdominal pain. (Jesica Trujillo) - Related Data Home Medications Medication Instructions Recorded Confirmed Flaxseed [Flaxseed Oil] 1,000 mg PO DAILY 06/30/13 09/11/17 Levothyroxine Sodium [Synthroid] 100 mcg PO DAILY 06/30/13 09/11/17 Montelukast [Singulair] 10 mg PO DAILY 06/30/13 09/11/17 Aspirin 81 mg PO DAILY 04/06/16 09/11/17 Mometasone/Formoterol [Dulera 200 2 puff INHALATION RT-BID 04/06/16 09/11/17 Mcg/5 Mcg Inhaler] Atorvastatin Calcium [Lipitor] 20 mg PO DAILY 09/22/16 09/11/17 Calcium Carbonate [Calcium] 1,200 mg PO DAILY 09/22/16 09/11/17 Albuterol Inhaler [Ventolin Hfa 1 - 2 puff INHALATION RT-Q6H PRN 09/11/17 Inhaler] Linaclotide [Linzess] 145 mcg PO DAILY 09/11/17 09/11/17 Multivitamins, Thera [Multivitamin 1 tab PO DAILY 09/11/17 09/11/17 (formulary)] Omeprazole [PriLOSEC] 20 mg PO DAILY 09/11/17 09/11/17 Allergies Allergy/AdvReac Type Severity Reaction Status Date / Time Iodinated Contrast- Oral and Allergy SWELLING/It Verified 02/21/18 06:08 IV Dye charlene [Iodinated Contrast Media - IV Dye] Review of Systems ROS Other: All systems not noted in ROS Statement are negative. <Jesica Trujillo - Last Filed: 02/21/18 06:24> ROS Other: All systems not noted in ROS Statement are negative. <Bonnie Oconnor - Last Filed: 02/21/18 07:39> ROS Statement: Those systems with pertinent positive or pertinent negative responses have been documented in the HPI. EKG Findings - EKG Comments: EKG Findings:: EKG obtained at 6:15 AM, rate is 88 rhythm is sinus, there is normal axis, normal intervals, FL 156, QRS 80, QTC 469. No acute ST elevations or depressions there is no evidence of acute ischemia or infarction <Bonnie Oconnor - Last Filed: 02/21/18 07:39> Past Medical History Past Medical History: Asthma, Cancer, GERD/Reflux, Hyperlipidemia, Hypertension Additional Past Medical History / Comment(s): BREAST CANCER History of Any Multi-Drug Resistant Organisms: None Reported Past Surgical History: Hysterectomy Additional Past Surgical History / Comment(s): mastectomy 2001, deviated septum Past Anesthesia/Blood Transfusion Reactions: No Reported Reaction Past Psychological History: No Psychological Hx Reported Smoking Status: Never smoker Past Alcohol Use History: None Reported Past Drug Use History: None Reported - Past Family History Mother Family Medical History: No Reported History <Jesica Trujillo - Last Filed: 02/21/18 06:24> General Exam Limitations: no limitations General appearance: alert, in no apparent distress Head exam: Present: atraumatic, normocephalic, normal inspection Eye exam: Present: normal appearance, PERRL, EOMI. Absent: scleral icterus, conjunctival injection, periorbital swelling ENT exam: Present: normal exam, mucous membranes moist Neck exam: Present: normal inspection. Absent: tenderness, meningismus, lymphadenopathy Respiratory exam: Present: normal lung sounds bilaterally. Absent: respiratory distress, wheezes, rales, rhonchi, stridor Cardiovascular Exam: Present: regular rate, normal rhythm, normal heart sounds. Absent: systolic murmur, diastolic murmur, rubs, gallop, clicks GI/Abdominal exam: Present: soft Extremities exam: Present: normal inspection, full ROM, normal capillary refill. Absent: tenderness, pedal edema, joint swelling, calf tenderness Back exam: Present: normal inspection Neurological exam: Present: alert, oriented X3, CN II-XII intact Psychiatric exam: Present: normal affect, normal mood Skin exam: Present: warm, dry, intact, normal color. Absent: rash <Jesica Trujillo - Last Filed: 02/21/18 06:24> <Bonnie Oconnor - Last Filed: 02/21/18 07:39> - General Exam Comments Initial Comments: 58-year-old female. Alert and oriented. (Jesica Trujillo) Vital Signs 02/21/18 06:05 Temperature 97.7 F Pulse Rate 96 Respiratory 20 Rate Blood Pressure 162/83 O2 Sat by Pulse 90 L Oximetry Chest Pain MDM <Jesica Trujillo - Last Filed: 02/21/18 06:24> <Bonnie Oconnor - Last Filed: 02/21/18 07:39> - MDM Reevaluated the patient, advised her of her labs and recommended she stay in the hospital for evaluation by cardiology. Patient is agreeable. Patient's primary care physician Dr. Mccollum admits to Dr. precaution is currently on vacation [facility] care was discussed with Dr. keen who accepts the admission with consult cardiology. (Bonnie Oconnor) Disposition <Jesica Trujillo - Last Filed: 02/21/18 06:24> <Bonnie Oconnor - Last Filed: 02/21/18 07:39> Clinical Impression: Chest pain Disposition: ADMITTED IP TO THIS [facility] Referrals: Errol Mccollum MD [Primary Care Provider] - 1-2 days
[2018-02-21 06:43] LABS: Basophils % (A) 1 %; Eosinophils # (A) 1.2 k/uL (0-0.7); Eosinophils % (A) 17 %; HCT 43.6 % (34.0-46.0); HGB 14.3 gm/dL (11.4-16.0); Lymphocytes # (A) 1.9 k/uL (1.0-4.8); Lymphocytes % (A) 26 %; MCH 30.3 pg (25.0-35.0); MCHC 32.8 g/dL (31.0-37.0); MCV 92.2 fL (80.0-100.0); Monocytes # (A) 0.6 k/uL (0-1.0); Monocytes % (A) 8 %; Neutrophils # (A) 3.2 k/uL (1.3-7.7); Neutrophils % (A) 44 %; Platelet Count 210 k/uL (150-450); RBC 4.72 m/uL (3.80-5.40); RDW 13.9 % (11.5-15.5); WBC 7.2 k/uL (3.8-10.6)
[2018-02-21 06:54] LABS: ALT 37 U/L (9-52); AST 33 U/L (14-36); Albumin 4.1 g/dL (3.5-5.0); Alkaline Phosphatase 100 U/L (38-126); Anion Gap 6 mmol/L; Blood Urea Nitrogen 15 mg/dL (7-17); Calcium 9.5 mg/dL (8.4-10.2); Carbon Dioxide 29 mmol/L (22-30); Chloride 108 mmol/L (98-107); Glucose 101 mg/dL (74-99); Magnesium 2.1 mg/dL (1.6-2.3); Sodium 143 mmol/L (137-145); Total Bilirubin 0.6 mg/dL (0.2-1.3); Total Protein 6.9 g/dL (6.3-8.2)
[2018-02-21 06:56] LABS: D-Dimer 0.49 mg/L FEU (<0.60); INR 0.9 (<1.2); Partial Thromboplastin Time 23.8 sec (22.0-30.0); Prothrombin Time 9.7 sec (9.0-12.0)
[2018-02-21 07:05] LABS: Creatine Kinase 59 U/L (30-135)
--- NOTE | 2018-02-21 07:09 | XR ---
EXAM: XR Chest, 2 Views CLINICAL HISTORY: ITS.REASON XR Reason: Chest Pain TECHNIQUE: Frontal and lateral views of the chest. COMPARISON: 09/11/2017. FINDINGS: Lungs: Unremarkable. No consolidation. Pleural space: Unremarkable. No pneumothorax. Heart: Unremarkable. No cardiomegaly. Mediastinum: Unremarkable. Bones/joints: Pectus excavatum deformity, stable. Soft tissues: Stable postsurgical changes of the right breast and axilla. Right axillary clips. Right breast implant. IMPRESSION: 1. Stable postoperative changes right breast/axilla and right breast implant. 2. Stable pectus excavatum deformity. 3. Lungs appear clear
[2018-02-21 07:17] LABS: Troponin I <0.012 ng/mL (0.000-0.034)
[2018-02-21] MEDS ORDERED: NITROGLYCERIN SL TABS 0.4 MG TAB SUBLINGUAL STA (07:19)
[2018-02-21] MEDS ORDERED: NITROGLYCERIN SL TABS 0.4 MG TAB SUBLINGUAL PRN (07:33)
[2018-02-21 07:37] VITALS: RESP 16
[2018-02-21 12:28] VITALS: BP 133/94; PULSE 89
[2018-02-21 12:52] LABS: Creatine Kinase 54 U/L (30-135)
[2018-02-21 13:04] LABS: Troponin I <0.012 ng/mL (0.000-0.034)
--- NOTE | 2018-02-21 22:26 | P.HPIM ---
History of Present Illness i came to see pt and RN told me he signed leaving AMA. Past Medical History Past Medical History: Asthma, Cancer, GERD/Reflux, Hyperlipidemia, Hypertension Additional Past Medical History / Comment(s): BREAST CANCER History of Any Multi-Drug Resistant Organisms: None Reported Past Surgical History: Hysterectomy Additional Past Surgical History / Comment(s): mastectomy 2001, deviated septum Past Anesthesia/Blood Transfusion Reactions: No Reported Reaction Past Psychological History: No Psychological Hx Reported Smoking Status: Never smoker Past Alcohol Use History: None Reported Past Drug Use History: None Reported - Past Family History Mother Family Medical History: No Reported History Medications and Allergies Home Medications Medication Instructions Recorded Confirmed Type Flaxseed [Flaxseed Oil] 1,000 mg PO DAILY 06/30/13 02/21/18 History Levothyroxine Sodium [Synthroid] 100 mcg PO DAILY 06/30/13 02/21/18 History Montelukast [Singulair] 10 mg PO DAILY 06/30/13 02/21/18 History Aspirin 81 mg PO DAILY 04/06/16 02/21/18 History Atorvastatin Calcium [Lipitor] 20 mg PO DAILY 09/22/16 02/21/18 History Calcium Carbonate [Calcium] 1,200 mg PO DAILY 09/22/16 02/21/18 History Albuterol Inhaler [Ventolin Hfa 1 - 2 puff INHALATION RT-Q6H PRN 09/11/17 History Inhaler] Multivitamins, Thera [Multivitamin 1 tab PO DAILY 09/11/17 02/21/18 History (formulary)] Omeprazole [PriLOSEC] 20 mg PO DAILY 09/11/17 02/21/18 History Fluticasone/Vilanterol [Breo 1 puff INHALATION RT-DAILY 02/21/18 02/21/18 History Ellipta 200-25 Mcg INH] Ranitidine HCl 150 mg PO HS 02/21/18 02/21/18 History rOPINIRole HCL [Requip] 0.25 mg PO HS 02/21/18 02/21/18 History Allergies Allergy/AdvReac Type Severity Reaction Status Date / Time Iodinated Contrast- Oral and Allergy SWELLING/It Verified 02/21/18 07:48 IV Dye charlene [Iodinated Contrast Media - IV Dye] Physical Exam Vitals: Vital Signs Temp Pulse Resp BP Pulse Ox 02/21/18 13:00 16 02/21/18 12:27 89 16 133/94 98 02/21/18 08:00 128/90 02/21/18 07:07 82 16 140/91 98 02/21/18 06:05 97.7 F 96 20 162/83 90 L Intake and Output 02/21/18 02/21/18 02/21/18 06:59 14:59 22:59 Other: Weight 71.214 kg Results CBC & Chem 7: 02/21/18 06:24 02/21/18 06:24 Labs: Abnormal Lab Results - Last 24 Hours (Table) 02/21/18 02/21/18 Range/Units 06:24 06:24 Eosinophils # 1.2 H (0-0.7) k/uL Chloride 108 H (98-107) mmol/L Glucose 101 H (74-99) mg/dL
--- NOTE | 2018-02-21 22:26 | P.DS ---
Providers Date of admission: 02/21/18 07:33 Attending physician: Willy Avila MD Consults: 02/21/18 07:33 Consult Physician Urgent Consulting Provider: [facility] Consult Reason/Comments: chest pain Do you want consulting provider notified?: Yes, Notify in am Primary care physician: Errol Song [facility] Course: i came to see pt and RN told me he signed leaving AMA. Plan - Discharge Summary New Discharge Prescriptions: No Action Montelukast [Singulair] 10 mg PO DAILY Levothyroxine Sodium [Synthroid] 100 mcg PO DAILY Flaxseed [Flaxseed Oil] 1,000 mg PO DAILY Aspirin 81 mg PO DAILY Atorvastatin Calcium [Lipitor] 20 mg PO DAILY Calcium Carbonate [Calcium] 1,200 mg PO DAILY Multivitamins, Thera [Multivitamin (formulary)] 1 tab PO DAILY Omeprazole [PriLOSEC] 20 mg PO DAILY Albuterol Inhaler [Ventolin Hfa Inhaler] 1 - 2 puff INHALATION RT-Q6H PRN PRN Reason: Shortness Of Breath Fluticasone/Vilanterol [Breo Ellipta 200-25 Mcg INH] 1 puff INHALATION RT- DAILY rOPINIRole HCL [Requip] 0.25 mg PO HS Ranitidine HCl 150 mg PO HS Discharge Medication List Flaxseed [Flaxseed Oil] 1,000 mg PO DAILY 06/30/13 [History] Levothyroxine Sodium [Synthroid] 100 mcg PO DAILY 06/30/13 [History] Montelukast [Singulair] 10 mg PO DAILY 06/30/13 [History] Aspirin 81 mg PO DAILY 04/06/16 [History] Atorvastatin Calcium [Lipitor] 20 mg PO DAILY 09/22/16 [History] Calcium Carbonate [Calcium] 1,200 mg PO DAILY 09/22/16 [History] Albuterol Inhaler [Ventolin Hfa Inhaler] 1 - 2 puff INHALATION RT-Q6H PRN [History] Multivitamins, Thera [Multivitamin (formulary)] 1 tab PO DAILY 09/11/17 [History ] Omeprazole [PriLOSEC] 20 mg PO DAILY 09/11/17 [History] Fluticasone/Vilanterol [Breo Ellipta 200-25 Mcg INH] 1 puff INHALATION RT-DAILY 02/21/18 [History] Ranitidine HCl 150 mg PO HS 02/21/18 [History] rOPINIRole HCL [Requip] 0.25 mg PO HS 02/21/18 [History] Follow up Appointment(s)/Referral(s): Errol Mccollum MD [Primary Care Provider] - 1-2 days Discharge Disposition: Left Against Medical Advice
[2018-02-22] MEDS ORDERED: ASPIRIN 325 MG TAB PO SCH (09:00)
== END 2018-02-21 15:26 | disposition left against medical advice (07) ==
LOC: EC 06:04 → 1SOBS 07:33
PROVIDERS: ADMIT Internal Medicine; ATTEND Internal Medicine
DX: R07.9 Chest pain, unspecified (principal); R53.1 Weakness; R42 Dizziness and giddiness; I10 Essential (primary) hypertension; E78.5 Hyperlipidemia, unspecified; K21.9 Gastro-esophageal reflux disease without esophagitis; J45.909 Unspecified asthma, uncomplicated; Z79.890 Hormone replacement therapy; Z79.82 Long term (current) use of aspirin; Z79.51 Long term (current) use of inhaled steroids; Z79.899 Other long term (current) drug therapy; Z91.041 Radiographic dye allergy status; Z85.3 Personal history of malignant neoplasm of breast; Z90.710 Acquired absence of both cervix and uterus; Z90.11 Acquired absence of right breast and nipple
CPT/HCPCS: 96360; 99285; 36415; 93005; 85379; 80053; 82550; 82553; 83735; 84484; 85025; 85610; 85730; 71046; G0378

== ENCOUNTER → 2018-08-05 | Outpatient (CLI) | payer MEDICARE ==
[~2018-08-05] MED LIST changes: +DENOSUMAB 60 MG/ML 1 ML SYRINGE SQ NR; -LACTATED RINGERS 1,000 ML IV SCH; -LIDOCAINE 1% 20 ML VIAL (10MG/ML) FOR IV START INTRADERMA PRN
[2018-08-05 11:27] VITALS: BP 140/87; PULSE 77; RESP 18; TEMP 98
== END | disposition home or self-care (01) ==
LOC: PROCWHC3 11:09
PROVIDERS: ATTEND Nurse Practitioner Adult Health
DX: M81.0 Age-related osteoporosis without current pathological fracture (principal)
CPT/HCPCS: 96372; J0897

== ENCOUNTER → 2018-08-30 | Outpatient (CLI) | payer MEDICARE ==
--- NOTE | 2018-08-30 10:56 | MM ---
Reason for exam: additional evaluation requested from prior study. Last mammogram was performed 1 year ago. History: Patient is postmenopausal, has history of breast cancer at age 40, and has history of other cancer at age 40. Implant in the right breast, 2001. Reconstruction of the right breast, 2001. Mastectomy of the right breast, 2001. Chemotherapy, 2001. Saline implants in both breasts, 1994. Took estrogen for 1 year beginning at age 39. Took antineoplastic for 8 years beginning at age 40. Physical Findings: Nurse did not find any significant physical abnormalities on exam. MG 3D Diag Mammo Imp W/Cad LT CC, MLO, and ID view(s) were taken of the left breast. Prior study comparison: August 28, 2017, left breast MG 3d diag mammo imp w/cad LT. January 15, 2017, left breast MG 3d diag mammo imp w/cad LT. There are scattered fibroglandular densities. No significant new findings when compared with previous films. These results were verbally communicated with the patient and result sheet given to the patient on 08/30/18. ASSESSMENT: Benign, BI-RAD 2 RECOMMENDATION: Follow-up diagnostic mammogram of the left breast in 1 year.
== END | disposition home or self-care (01) ==
LOC: RADMAMWWP 09:39
PROVIDERS: ATTEND Internal Medicine Hematology & Oncology
DX: Z08 Encounter for follow-up examination after completed treatment for malignant neoplasm (principal); Z85.3 Personal history of malignant neoplasm of breast; Z90.11 Acquired absence of right breast and nipple
CPT/HCPCS: 77065; G0279; 77061

== ENCOUNTER 2018-10-05 10:35 | Emergency (ER) | payer MEDICARE ==
--- NOTE | 2018-10-05 11:32 | ED ---
General Adult HPI - General Chief complaint: Overdose Stated complaint: Overdose Time Seen by Provider: 10/05/18 10:40 Source: patient, EMS, RN notes reviewed Mode of arrival: EMS Limitations: altered mental status - History of Present Illness Initial comments: This is a 58-year-old female who presents to the emergency department stating she actually took 5 Flexeril exam 5 over steroids. Patient states she took about 7:00 this morning. Patient has slurred speech and is acting considerably different than her baseline according to her daughter. Patient appears intoxicated according to the daughter. Patient herself has no complaints of any pain or shortness of breath or difficulty breathing. Patient denies any abdominal pain patient denies any nausea. Patient denies any hallucinations however she does state her mouth is very dry and she does think she is slurring her speech. - Related Data Home Medications Medication Instructions Recorded Confirmed Flaxseed [Flaxseed Oil] 1,000 mg PO DAILY 06/30/13 10/05/18 Levothyroxine Sodium [Synthroid] 100 mcg PO DAILY 06/30/13 10/05/18 Montelukast [Singulair] 10 mg PO DAILY 06/30/13 10/05/18 Aspirin 81 mg PO DAILY 04/06/16 10/05/18 Atorvastatin Calcium [Lipitor] 20 mg PO DAILY 09/22/16 10/05/18 Calcium Carbonate [Calcium] 1,200 mg PO DAILY 09/22/16 10/05/18 Albuterol Inhaler [Ventolin Hfa 1 - 2 puff INHALATION RT-Q6H PRN 09/11/17 10/05/18 Inhaler] Multivitamins, Thera [Multivitamin 1 tab PO DAILY 09/11/17 10/05/18 (formulary)] Fluticasone/Vilanterol [Breo 1 puff INHALATION RT-DAILY 02/21/18 10/05/18 Ellipta 200-25 Mcg INH] Ranitidine HCl 150 mg PO HS 02/21/18 10/05/18 rOPINIRole HCL [Requip] 0.25 mg PO HS PRN 02/21/18 10/05/18 Cyclobenzaprine [Flexeril] 10 mg PO HS 10/05/18 10/05/18 Glasgow-3 Fatty Acids/Fish Oil [Fish 1 cap PO DAILY 10/05/18 10/05/18 Oil 1,000 mg Softgel] Allergies Allergy/AdvReac Type Severity Reaction Status Date / Time Iodinated Contrast- Oral and Allergy SWELLING/It Verified 10/05/18 10:56 IV Dye charlene [Iodinated Contrast Media - IV Dye] Review of Systems ROS Statement: Those systems with pertinent positive or pertinent negative responses have been documented in the HPI. ROS Other: All systems not noted in ROS Statement are negative. Past Medical History Past Medical History: Asthma, Cancer, GERD/Reflux, Hyperlipidemia, Hypertension Additional Past Medical History / Comment(s): BREAST CANCER History of Any Multi-Drug Resistant Organisms: None Reported Past Surgical History: Hysterectomy Additional Past Surgical History / Comment(s): mastectomy 2001, deviated septum Past Anesthesia/Blood Transfusion Reactions: No Reported Reaction Past Psychological History: No Psychological Hx Reported Smoking Status: Former smoker Past Alcohol Use History: Occasional Past Drug Use History: None Reported - Past Family History Mother Family Medical History: No Reported History General Exam - General Exam Comments Initial Comments: GENERAL: Patient is well-developed and well-nourished. Patient is nontoxic and well- hydrated and is in no acute distress. ENT: Neck is soft and supple. No significant lymphadenopathy is noted. Oropharynx is clear. Moist mucous membranes. Neck has full range of motion without eliciting any pain. EYES: The sclera were anicteric and conjunctiva were pink and moist. Extraocular movements were intact and pupils were equal round and reactive to light. Eyelids were unremarkable. PULMONARY: Unlabored respirations. Good breath sounds bilaterally. No audible rales rhonchi or wheezing was noted. CARDIOVASCULAR: There is a regular rate and rhythm without any murmurs gallops or rubs. ABDOMEN: Soft and nontender with normal bowel sounds. SKIN: Skin is clear with no lesions or rashes and otherwise unremarkable. NEUROLOGIC: Patient is alert and oriented x3. Cranial nerves II through XII are grossly intact. Motor and sensory are also intact. Normal speech, volume and content. Symmetrical smile. Patient's speech is very slurred. MUSCULOSKELETAL: Normal extremities with adequate strength and full range of motion. LYMPHATICS: No significant lymphadenopathy is noted PSYCHIATRIC: Normal psychiatric evaluation. Patient is not suicidal or homicidal. Patient states taking her pills as an accident. Limitations: altered mental status Course Vital Signs 10/05/18 10/05/18 10/05/18 10:40 11:00 11:30 Temperature 97.9 F Pulse Rate 96 87 80 Respiratory 18 15 16 Rate Blood Pressure 140/98 140/98 139/88 O2 Sat by Pulse 97 96 97 Oximetry Medical Decision Making - Medical Decision Making EKG shows normal sinus rhythm at 79 bpm VA interval is 140 QRS is 70 QT interval 408 QTC is 467. Patient's EKG shows no ST segment elevation or depression. Patient is alert and oriented however she still slurring her speech has no complaints. Wasn't control was called and they stated that the patient could be discharged home and if symptoms worsen to return. Disposition Clinical Impression: Accidental overdose Disposition: HOME SELF-CARE Condition: Good Instructions (If sedation given, give patient instructions): Adult Overdose (ED) Additional Instructions: Patient is to return to the emergency department if she is having any new or worsening symptoms Is patient prescribed a controlled substance at d/c from ED?: No Referrals: Errol Mccollum MD [Primary Care Provider] - 1-2 days Time of Disposition: 12:27
[2018-10-05 12:47] VITALS: BP 126/89; PULSE 87; RESP 18; TEMP 97.5
== END 2018-10-05 12:47 | disposition home or self-care (01) ==
LOC: EC 10:35
DX: T48.1X1A Poisoning by skeletal muscle relaxants [neuromuscular blocking agents], accidental (unintentional), initial encounter (principal); R47.81 Slurred speech; R41.82 Altered mental status, unspecified; J45.909 Unspecified asthma, uncomplicated; I10 Essential (primary) hypertension; K21.9 Gastro-esophageal reflux disease without esophagitis; Z79.890 Hormone replacement therapy; Z79.82 Long term (current) use of aspirin; Z79.899 Other long term (current) drug therapy; Z79.51 Long term (current) use of inhaled steroids; Z91.041 Radiographic dye allergy status; Z87.891 Personal history of nicotine dependence; Z85.3 Personal history of malignant neoplasm of breast; Z90.10 Acquired absence of unspecified breast and nipple
CPT/HCPCS: 93005; 99284

== ENCOUNTER 2018-11-27 09:39 | Emergency (ER) | payer MEDICARE ==
[2018-11-27] MEDS ORDERED: SODIUM CHLORIDE 0.9% 500 ML 500 ML IV STA (10:10)
[2018-11-27] MEDS ORDERED: METOCLOPRAMIDE 5 MG/ML 2 ML VIAL IVP STA (10:27)
[2018-11-27] MEDS ORDERED: MAG HYDROX/AL HYDROX/SIMETH 30 ML, HYOSCYAMINE ELIXIR 10 ML PO ONE ×2 (10:27)
--- NOTE | 2018-11-27 10:32 | ED ---
General Adult HPI - General Source: patient, RN notes reviewed Mode of arrival: ambulatory Limitations: no limitations <Aydin Mark - Last Filed: 11/27/18 12:11> <Kareen Matson - Last Filed: 11/28/18 12:19> - General Chief complaint: Recheck/Abnormal Lab/Rx Stated complaint: heartburn/arm pain Time Seen by Provider: 11/27/18 10:02 - History of Present Illness Initial comments: This a 58-year-old female presents emergency Department chief complaint of heartburn, chest discomfort. Patient states that she's been dealing with these issues for last month but states symptoms are getting worse. She has been on omeprazole twice daily, ranitidine, Carafate. She's had no relief. Patient states that she's had an EGD 2 years ago which showed hiatal hernia by Dr. Lee. Patient also had this pain on the left side of her rib. Patient states that nothing seems to make her symptoms feel better. Patient does have some epigastric discomfort. Denies feeling short of breath. Patient alsostates that she's had this burning and tingling sensation in her extremities. Patient states that she's not exactly sure what this is from. Patient does admit that she was discontinued from her Cardizem recently. Patient denies any dysuria, hematuria, diarrhea constipation issues. (Aydin Mark) - Related Data Home Medications Medication Instructions Recorded Confirmed Flaxseed [Flaxseed Oil] 1,000 mg PO DAILY 06/30/13 11/27/18 Levothyroxine Sodium [Synthroid] 100 mcg PO DAILY 06/30/13 11/27/18 Montelukast [Singulair] 10 mg PO DAILY 06/30/13 11/27/18 Aspirin 81 mg PO DAILY 04/06/16 11/27/18 Atorvastatin Calcium [Lipitor] 20 mg PO DAILY 09/22/16 11/27/18 Calcium Carbonate [Calcium] 1,200 mg PO DAILY 09/22/16 11/27/18 Albuterol Inhaler [Ventolin Hfa 1 - 2 puff INHALATION RT-Q6H PRN 09/11/17 11/27/18 Inhaler] Fluticasone/Vilanterol [Breo 1 puff INHALATION RT-DAILY 02/21/18 11/27/18 Ellipta 200-25 Mcg INH] Ranitidine HCl 150 mg PO BID 02/21/18 11/27/18 rOPINIRole HCL [Requip] 0.25 mg PO HS PRN 02/21/18 11/27/18 [place]-3 Fatty Acids/Fish Oil [Fish 1 cap PO DAILY 10/05/18 11/27/18 Oil 1,000 mg Softgel] Pantoprazole [Protonix] 40 mg PO DAILY 11/27/18 11/27/18 Sucralfate [Carafate] 1 gm PO QID 11/27/18 11/27/18 Previous Rx's Medication Instructions Recorded Metoclopramide [Reglan] 10 mg PO TID PRN #15 tab 11/27/18 Allergies Allergy/AdvReac Type Severity Reaction Status Date / Time Iodinated Contrast Media Allergy SWELLING/It Verified 11/27/18 10:44 [Iodinated Contrast Media - charlene IV Dye] Review of Systems ROS Other: All systems not noted in ROS Statement are negative. <Aydin Mark - Last Filed: 11/27/18 12:11> ROS Other: All systems not noted in ROS Statement are negative. <Kareen Matson - Last Filed: 11/28/18 12:19> ROS Statement: Those systems with pertinent positive or pertinent negative responses have been documented in the HPI. Past Medical History Past Medical History: Asthma, Cancer, GERD/Reflux, Hyperlipidemia, Hypertension Additional Past Medical History / Comment(s): BREAST CANCER (in remission.) History of Any Multi-Drug Resistant Organisms: None Reported Past Surgical History: Hysterectomy Additional Past Surgical History / Comment(s): mastectomy 2002, deviated septum Past Anesthesia/Blood Transfusion Reactions: No Reported Reaction Past Psychological History: No Psychological Hx Reported Smoking Status: Former smoker Past Alcohol Use History: Occasional Past Drug Use History: None Reported - Past Family History Mother Family Medical History: No Reported History <Aydin Mark - Last Filed: 11/27/18 12:11> General Exam Limitations: no limitations General appearance: alert, in no apparent distress Head exam: Present: atraumatic, normocephalic, normal inspection Eye exam: Present: normal appearance, PERRL, EOMI. Absent: scleral icterus, conjunctival injection, periorbital swelling ENT exam: Present: normal exam, mucous membranes moist Neck exam: Present: normal inspection, full ROM. Absent: tenderness, meningismus, lymphadenopathy Respiratory exam: Present: normal lung sounds bilaterally, chest wall tenderness (Tenderness to left lateral rib). Absent: respiratory distress, wheezes, rales, rhonchi, stridor Cardiovascular Exam: Present: regular rate, normal rhythm, normal heart sounds. Absent: systolic murmur, diastolic murmur, rubs, gallop, clicks GI/Abdominal exam: Present: soft, tenderness (Mild epigastric), normal bowel sounds. Absent: distended, guarding, rebound, rigid Back exam: Absent: CVA tenderness (R), CVA tenderness (L) Neurological exam: Present: alert Skin exam: Present: warm, dry, intact, normal color. Absent: rash <Aydin Mark - Last Filed: 11/27/18 12:11> Course Vital Signs 11/27/18 11/27/18 09:45 12:35 Temperature 97.9 F 98.0 F Pulse Rate 77 67 Respiratory 18 16 Rate Blood Pressure 134/96 120/88 O2 Sat by Pulse 93 L 94 L Oximetry EKG Findings - EKG Comments: EKG Findings:: EKG performed at 19:59 normal sinus rhythm rate of 78 TX 142 QRS 88 QT/QTC 394/449 - EKG Results: EKG: interpreted by ERMD <Aydin Mark - Last Filed: 11/27/18 12:11> Medical Decision Making - Lab Data Result diagrams: 11/27/18 10:38 11/27/18 10:38 <Aydin Mark - Last Filed: 11/27/18 12:11> - Lab Data Result diagrams: 11/27/18 10:38 11/27/18 10:38 <Kareen Matson - Last Filed: 11/28/18 12:19> - Medical Decision Making Labs EKG and chest x-ray unremarkable. Patient is greatly improved after GI cocktail. Patient was also given Reglan. Patient will be discharged with Reglan, advised to use MiraLAX. She will continue her omeprazole. Patient will follow-up with either GI or Gen. surgery for EGD return parameters discussed. This is been an ongoing chronic issue does not appear to be cardiac in nature. (Aydin Mark) I was available for consultation in the emergency department. The history and physical exam were done by the midlevel provider. I was consulted for this patients care. I reviewed the case with the midlevel provider and based on their presentation of the patient, I agree with the assessment, medical decision making and plan of care as documented. Chart was dictated using S[employer] dictation software. Attempts were made to correct any dictation errors however some typographical errors may persist. (Kareen Matson) - Lab Data Lab Results 11/27/18 11/27/18 11/27/18 Range/Units 10:38 10:38 10:38 WBC 7.4 (3.8-10.6) k/uL RBC 4.68 (3.80-5.40) m/uL Hgb 14.7 (11.4-16.0) gm/dL Hct 42.9 (34.0-46.0) % MCV 91.7 (80.0-100.0) fL MCH 31.4 (25.0-35.0) pg MCHC 34.2 (31.0-37.0) g/dL RDW 13.1 (11.5-15.5) % Plt Count 231 (150-450) k/uL Neutrophils % 68 % Lymphocytes % 14 % Monocytes % 7 % Eosinophils % 9 % Basophils % 1 % Neutrophils # 5.1 (1.3-7.7) k/uL Lymphocytes # 1.0 (1.0-4.8) k/uL Monocytes # 0.5 (0-1.0) k/uL Eosinophils # 0.7 (0-0.7) k/uL Basophils # 0.0 (0-0.2) k/uL PT 10.3 (9.0-12.0) sec INR 1.0 (<1.2) APTT 23.3 (22.0-30.0) sec Sodium 141 (137-145) mmol/L Potassium 4.5 (3.5-5.1) mmol/L Chloride 110 H (98-107) mmol/L Carbon Dioxide 25 (22-30) mmol/L Anion Gap 6 mmol/L BUN 10 (7-17) mg/dL Creatinine 0.55 (0.52-1.04) mg/dL Est GFR (CKD-EPI)AfAm >90 (>60 ml/min/1.73 sqM) Est GFR (CKD-EPI)NonAf >90 (>60 ml/min/1.73 sqM) Glucose 91 (74-99) mg/dL Calcium 9.3 (8.4-10.2) mg/dL Total Bilirubin 0.7 (0.2-1.3) mg/dL AST 43 H (14-36) U/L ALT 41 (9-52) U/L Alkaline Phosphatase 91 (38-126) U/L Troponin I (0.000-0.034) ng/mL Total Protein 7.1 (6.3-8.2) g/dL Albumin 4.2 (3.5-5.0) g/dL Amylase 56 (30-110) U/L Lipase 166 (23-300) U/L Urine Color Urine Appearance (Clear) Urine pH (5.0-8.0) Ur Specific [place] (1.001-1.035) Urine Protein (Negative) Urine Glucose (UA) (Negative) Urine Ketones (Negative) Urine Blood (Negative) Urine Nitrite (Negative) Urine Bilirubin (Negative) Urine Urobilinogen (<2.0) mg/dL Ur Leukocyte Esterase (Negative) 11/27/18 11/27/18 Range/Units 10:38 10:56 WBC (3.8-10.6) k/uL RBC (3.80-5.40) m/uL Hgb (11.4-16.0) gm/dL Hct (34.0-46.0) % MCV (80.0-100.0) fL MCH (25.0-35.0) pg MCHC (31.0-37.0) g/dL RDW (11.5-15.5) % Plt Count (150-450) k/uL Neutrophils % % Lymphocytes % % Monocytes % % Eosinophils % % Basophils % % Neutrophils # (1.3-7.7) k/uL Lymphocytes # (1.0-4.8) k/uL Monocytes # (0-1.0) k/uL Eosinophils # (0-0.7) k/uL Basophils # (0-0.2) k/uL PT (9.0-12.0) sec INR (<1.2) APTT (22.0-30.0) sec Sodium (137-145) mmol/L Potassium (3.5-5.1) mmol/L Chloride (98-107) mmol/L Carbon Dioxide (22-30) mmol/L Anion Gap mmol/L BUN (7-17) mg/dL Creatinine (0.52-1.04) mg/dL Est GFR (CKD-EPI)AfAm (>60 ml/min/1.73 sqM) Est GFR (CKD-EPI)NonAf (>60 ml/min/1.73 sqM) Glucose (74-99) mg/dL Calcium (8.4-10.2) mg/dL Total Bilirubin (0.2-1.3) mg/dL AST (14-36) U/L ALT (9-52) U/L Alkaline Phosphatase (38-126) U/L Troponin I <0.012 (0.000-0.034) ng/mL Total Protein (6.3-8.2) g/dL Albumin (3.5-5.0) g/dL Amylase (30-110) U/L Lipase (23-300) U/L Urine Color Light Yellow Urine Appearance Clear (Clear) Urine pH 8.0 (5.0-8.0) Ur Specific [place] 1.007 (1.001-1.035) Urine Protein Negative (Negative) Urine Glucose (UA) Negative (Negative) Urine Ketones Negative (Negative) Urine Blood Negative (Negative) Urine Nitrite Negative (Negative) Urine Bilirubin Negative (Negative) Urine Urobilinogen <2.0 (<2.0) mg/dL Ur Leukocyte Esterase Negative (Negative) Disposition Is patient prescribed a controlled substance at d/c from ED?: No Time of Disposition: 12:13 <Aydin Mark - Last Filed: 11/27/18 12:11> <Kareen Matson - Last Filed: 11/28/18 12:19> Clinical Impression: GERD (gastroesophageal reflux disease) Disposition: HOME SELF-CARE Condition: Stable Instructions (If sedation given, give patient instructions): Gastroesophageal Reflux Disease (ED) Additional Instructions: Please return to the Emergency Department if symptoms worsen or any other co ncerns. Prescriptions: Metoclopramide [Reglan] 10 mg PO TID PRN #15 tab PRN Reason: GERD Referrals: Errol Mccollum MD [Primary Care Provider] - 1-2 days Corazon Jules MD [STAFF PHYSICIAN] - 1-2 days Velocci,Abbe, MD [STAFF PHYSICIAN] - 1-2 days
[2018-11-27 10:54] LABS: Basophils % (A) 1 %; Eosinophils # (A) 0.7 k/uL (0-0.7); Eosinophils % (A) 9 %; HCT 42.9 % (34.0-46.0); HGB 14.7 gm/dL (11.4-16.0); Lymphocytes % (A) 14 %; MCH 31.4 pg (25.0-35.0); MCHC 34.2 g/dL (31.0-37.0); MCV 91.7 fL (80.0-100.0); Mean Platelet Volume 6.2; Monocytes # (A) 0.5 k/uL (0-1.0); Monocytes % (A) 7 %; Neutrophils # (A) 5.1 k/uL (1.3-7.7); Neutrophils % (A) 68 %; Platelet Count 231 k/uL (150-450); RBC 4.68 m/uL (3.80-5.40); RDW 13.1 % (11.5-15.5); WBC 7.4 k/uL (3.8-10.6)
--- NOTE | 2018-11-27 11:07 | XR ---
EXAMINATION TYPE: XR KUB DATE OF EXAM: 11/27/2018 COMPARISON: NONE HISTORY: Pain TECHNIQUE: One view abdominal series FINDINGS: The osseous structures are intact. The bowel gas pattern is nonspecific. Right lung base is clear. L eft lung base limited by soft tissue overlap. Surgical clips seen in the region of the right axilla. Hypertrophic change of the spine. Calcifications in the pelvis likely vascular. Hypertrophic change o f the acetabulum can be associated with femoral acetabular impingement. IMPRESSION: 1. Nonspecific abdomen.
[2018-11-27 11:09] LABS: ALT 41 U/L (9-52); AST 43 U/L (14-36); African American GFR (CKD) >90 (>60 ml/min/1.73 sqM); Albumin 4.2 g/dL (3.5-5.0); Alkaline Phosphatase 91 U/L (38-126); Amylase 56 U/L (30-110); Anion Gap 6 mmol/L; Blood Urea Nitrogen 10 mg/dL (7-17); Calcium 9.3 mg/dL (8.4-10.2); Carbon Dioxide 25 mmol/L (22-30); Chloride 110 mmol/L (98-107); Glucose 91 mg/dL (74-99); Sodium 141 mmol/L (137-145); Total Bilirubin 0.7 mg/dL (0.2-1.3); Total Protein 7.1 g/dL (6.3-8.2)
--- NOTE | 2018-11-27 11:10 | XR ---
EXAMINATION TYPE: XR chest 2V DATE OF EXAM: 11/27/2018 COMPARISON: 03/03/2018 HISTORY: Abdominal pain and chest pain TECHNIQUE: Frontal and lateral views of the chest are obtained. FINDINGS: Pectus excavatum deformity and right breast postsurgical change creates partial obscuratio n of the right lower lung as seen on the prior. No new focal consolidation on the frontal or lateral. Cardiomediastinal silhouette is shifted to the left and mildly enlarged unchanged from the prior. Le ft lung remains well aerated. No acute osseous pathology seen. Mild degenerative changes of the spine . IMPRESSION: Chronic changes with no acute cardiopulmonary process.
[2018-11-27 11:11] LABS: Potassium 4.5 mmol/L (3.5-5.1)
[2018-11-27 11:23] LABS: Appearance,Urine Clear (Clear); Bilirubin,Urine Negative (Negative); Blood,Urine Negative (Negative); Color,Urine Light Yellow; Glucose,Urine (UA) Negative (Negative); Ketones,Urine Negative (Negative); Leukocyte Esterase,Urine Negative (Negative); Nitrite,Urine Negative (Negative); Protein,Urine Negative (Negative); Specific Gravity,Urine 1.007 (1.001-1.035); Urobilinogen,Urine <2.0 mg/dL (<2.0)
[2018-11-27 11:33] LABS: Partial Thromboplastin Time 23.3 sec (22.0-30.0); Prothrombin Time 10.3 sec (9.0-12.0)
[2018-11-27 12:37] VITALS: BP 120/88; PULSE 67; RESP 16; TEMP 98
== END 2018-11-27 12:36 | disposition home or self-care (01) ==
LOC: EC 09:39
DX: K21.9 Gastro-esophageal reflux disease without esophagitis (principal); R20.2 Paresthesia of skin; R20.8 Other disturbances of skin sensation; J45.909 Unspecified asthma, uncomplicated; E78.5 Hyperlipidemia, unspecified; I10 Essential (primary) hypertension; Z87.891 Personal history of nicotine dependence; Z91.041 Radiographic dye allergy status; Z79.51 Long term (current) use of inhaled steroids; Z79.82 Long term (current) use of aspirin; Z79.890 Hormone replacement therapy; Z79.899 Other long term (current) drug therapy; Z85.3 Personal history of malignant neoplasm of breast; Z90.10 Acquired absence of unspecified breast and nipple
CPT/HCPCS: 36415; 93005; 80053; 82150; 83690; 84484; 85025; 85610; 85730; 81003; 71046; 74018; 99284; 96374; 96361 ×2; J2765

== ENCOUNTER → 2018-12-24 | Outpatient (CLI) | payer MEDICARE ==
--- NOTE | 2018-12-24 16:37 | US ---
EXAMINATION TYPE: US thyroid st tissue head/neck DATE OF EXAM: 12/24/2018 COMPARISON: NONE CLINICAL HISTORY: E04.1 Thyroid nodule. Pt states thyroid nodule seen on outside MRI, on thyroid meds x many years GLAND SIZE: Right Lobe: 4.4 x 2.1 x 1.8 cm Overall Parenchyma: heterogenous Left Lobe: 3.9 x 1.3 x 0.9 cm Overall Parenchyma: heterogeneous Isthmus Thickness: 0.3 cm NODULES RIGHT: # of nodules measured on right: 1 1. 2.5 X 1.5 x 1.8 cm echogenic solid nodule at the upper pole with well-defined margins; This nod ule is wider than tall and shows intranodular vascularity. Prior size: No prior Bilateral neck scanned, no evidence of lymphadenopathy. Single nodule right lobe. IMPRESSION: Complex solid, vascular right thyroid nodule measuring 2.5 cm. Fine-needle aspiration is recommended.
== END | disposition home or self-care (01) ==
LOC: RADUSWWP 16:15
PROVIDERS: ATTEND Family Medicine
DX: E04.1 Nontoxic single thyroid nodule (principal)
CPT/HCPCS: 76536

== ENCOUNTER 2019-01-09 09:15 | Day surgery (SDC) | payer MEDICARE ==
[2019-01-09 10:11] VITALS: RESP 16; TEMP 98.2
[2019-01-09 11:49] VITALS: BP 131/78; PULSE 60
--- NOTE | 2019-01-09 11:54 | US ---
EXAMINATION TYPE: US FNA thyroid first lesion DATE OF EXAM: 01/09/2019 COMPARISON: Ultrasound 12/24/2018 HISTORY: E04.1, thyroid nodule Maximal barrier technique was utilized. After informed consent, skin overlying the lesion was locali zed with ultrasound and the overlying skin prepped and draped. Ultrasound was utilized using sterile technique. Lidocaine was used for local anesthesia. Five passes with a 25-gauge needle were made int o the nodule and aspirated specimen was submitted to cytology. Following the procedure hemostasis ac hieved. No immediate complication. The patient discharged in stable condition. IMPRESSION: STATUS POST ULTRASOUND GUIDED FINE NEEDLE ASPIRATION OF RIGHT THYROID NODULE, PATHOLOGY I S PENDING. THIS PROCEDURE WAS PERFORMED BY THE UNDERSIGNED.
== END 2019-01-09 11:20 | disposition home or self-care (01) ==
LOC: RADPROMAIN 09:15
PROVIDERS: ATTEND Otolaryngology
DX: E04.1 Nontoxic single thyroid nodule (principal); R89.7 Abnormal histological findings in specimens from other organs, systems and tissues
CPT/HCPCS: 10005; 88173; 88305

== ENCOUNTER 2019-02-06 09:21 | Day surgery (SDC) | payer MEDICARE ==
[2019-02-05 10:52] VITALS: BMI 23.8
[~2019-02-06 09:21] MED LIST changes: -DENOSUMAB 60 MG/ML 1 ML SYRINGE SQ NR; +LACTATED RINGERS 1,000 ML IV SCH; +LIDOCAINE 1% 20 ML VIAL (10MG/ML) FOR IV START INTRADERMA PRN
[2019-02-06 09:47] VITALS: TEMP 98.2
[2019-02-06] MEDS ORDERED: LIDOCAINE 1% INJ 10MG/ML (20 ML MDV) ONE (10:36)
[2019-02-06] MEDS ORDERED: PROPOFOL 10 MG/ML 20 ML VIAL IV ONE (10:36)
--- NOTE | 2019-02-06 11:11 | P.GSHP ---
History of Present Illness H&P Date: 02/06/19 CHIEF COMPLAINT: GERD HISTORY OF PRESENT ILLNESS: The patient is a 58-year-old female who presents reports gastroesophageal reflux disease. Upper endoscopy was offered for further evaluation and management. PAST MEDICAL HISTORY: Please see list. PAST SURGICAL HISTORY: Please see list. MEDICATIONS: Please see list. ALLERGIES: Please see list. SOCIAL HISTORY: No illicit drug use FAMILY HISTORY: No reports of Crohn disease or ulcerative colitis. REVIEW OF ORGAN SYSTEMS: CONSTITUTIONAL: No reports of fevers or chills. GI: Denies any blood in stools or constipation. PHYSICAL EXAM: VITAL SIGNS: Stable GENERAL: Well-developed and pleasant in no acute distress. HEENT: No scleral icterus. Extraocular movements grossly intact. Moist buccal mucosa. NECK: Supple without lymphadenopathy. CHEST: Unlabored respirations. Equal bilateral excursions. CARDIOVASCULAR: Regular rate and rhythm. Distal 2+ pulses. ABDOMEN: Soft, nondistended. MUSCULOSKELETAL: No clubbing, cyanosis, or edema. ASSESSMENT: 1. Gastroesophageal reflux disease PLAN: 1. Recommend proceeding with an upper endoscopy Past Medical History Past Medical History: Asthma, Cancer, GERD/Reflux, Hyperlipidemia, Osteoarthritis (OA), Thyroid Disorder Additional Past Medical History / Comment(s): BREAST CANCER (in remission.) History of Any Multi-Drug Resistant Organisms: None Reported Past Surgical History: Hysterectomy Additional Past Surgical History / Comment(s): mastectomy 2002, deviated septum surgery Past Anesthesia/Blood Transfusion Reactions: No Reported Reaction Smoking Status: Former smoker - Past Family History Mother Family Medical History: No Reported History Additional Family Medical History / Comment(s): alzhemiers Father Family Medical History: Cancer Additional Family Medical History / Comment(s): skin cancer Medications and Allergies Home Medications Medication Instructions Recorded Confirmed Type Flaxseed [Flaxseed Oil] 1,000 mg PO DAILY 06/30/13 02/06/19 History Levothyroxine Sodium [Synthroid] 100 mcg PO DAILY 06/30/13 02/06/19 History Montelukast [Singulair] 10 mg PO DAILY 06/30/13 02/06/19 History Aspirin 81 mg PO DAILY 04/06/16 02/06/19 History Atorvastatin Calcium [Lipitor] 20 mg PO DAILY 09/22/16 02/06/19 History Calcium Carbonate [Calcium] 600 mg PO DAILY 09/22/16 02/06/19 History Albuterol Inhaler [Ventolin Hfa 1 - 2 puff INHALATION RT-Q6H PRN 09/11/17 02/06/19 History Inhaler] Ranitidine HCl 150 mg PO BID 02/21/18 02/06/19 History rOPINIRole HCL [Requip] 0.25 mg PO HS PRN 02/21/18 02/06/19 History [place]-3 Fatty Acids/Fish Oil [Fish 1 each PO DAILY 12/30/18 02/06/19 History Oil 1,000 mg Softgel] Budesonide/Formoterol Fumarate 2 puff INHALATION BID 02/05/19 02/06/19 History [Symbicort 160-4.5 Mcg Inhaler] Allergies Allergy/AdvReac Type Severity Reaction Status Date / Time Iodinated Contrast Media Allergy SWELLING/It Verified 02/06/19 09:47 [Iodinated Contrast Media - charlene IV Dye] Surgical - Exam Vital Signs Temp Pulse Resp BP Pulse Ox 98.2 F 88 16 150/76 94 L 02/06/19 09:42 02/06/19 09:42 02/06/19 09:42 02/06/19 09:42 02/06/19 09:42
--- NOTE | 2019-02-06 11:14 | P.PCN ---
Date of Procedure: 02/06/19 Description of Procedure: PREOPERATIVE DIAGNOSIS: Gastroesophageal reflux disease. POSTOPERATIVE DIAGNOSIS: Gastritis. Gastroesophageal reflux disease. Diaphragmatic hiatal hernia Superficial gastric ulcers OPERATION: Esophagogastroduodenoscopy with biopsies along antrum. SURGEON: Corazon Jules MD ANESTHESIA: MAC. INDICATIONS: The patient is a 58-year-old female who presents with a history of reflux disease. Benefits and risks of the procedure were described. Informed consent was obtained. DESCRIPTION: The patient was brought into the endoscopy suite and laid in the left lateral decubitus position. An Olympus gastroscope was passed along the posterior oropharynx down to the distal esophagus where the squamocolumnar junction was encountered at 37 cm from the incisors. The stomach was entered and no bile reflux was found. Additional findings are listed below. Biopsies with cold forceps were obtained of the antrum. The first through third portion of the duodenum was examined and unremarkable. Retroflexion of the scope confirmed Hill grade 3 lower esophageal valve. The squamocolumnar junction demonstrated LA grade B erosive esophagitis. The stomach was desufflated. The patient tolerated the procedure well. FINDINGS: Squamocolumnar junction 37 cm from the incisors. Diaphragmatic hiatus at 38 cm. Hiatal hernia, 1 cm Hill grade 3 lower esophageal valve. LA grade B erosive esophagitis. No active duodenitis. Chronic gastritis Superficial gastric ulcers RECOMMENDATIONS: Upper endoscopy as needed. Plan - Discharge Summary Discharge Rx Participant: No New Discharge Prescriptions: No Action Montelukast [Singulair] 10 mg PO DAILY Levothyroxine Sodium [Synthroid] 100 mcg PO DAILY Flaxseed [Flaxseed Oil] 1,000 mg PO DAILY Aspirin 81 mg PO DAILY Atorvastatin Calcium [Lipitor] 20 mg PO DAILY Calcium Carbonate [Calcium] 600 mg PO DAILY Albuterol Inhaler [Ventolin Hfa Inhaler] 1 - 2 puff INHALATION RT-Q6H PRN PRN Reason: Shortness Of Breath rOPINIRole HCL [Requip] 0.25 mg PO HS PRN PRN Reason: RLS Ranitidine HCl 150 mg PO BID [place]-3 Fatty Acids/Fish Oil [Fish Oil 1,000 mg Softgel] 1 each PO DAILY Budesonide/Formoterol Fumarate [Symbicort 160-4.5 Mcg Inhaler] 2 puff INHALATION BID Discharge Medication List Flaxseed [Flaxseed Oil] 1,000 mg PO DAILY 06/30/13 [History] Levothyroxine Sodium [Synthroid] 100 mcg PO DAILY 06/30/13 [History] Montelukast [Singulair] 10 mg PO DAILY 06/30/13 [History] Aspirin 81 mg PO DAILY 04/06/16 [History] Atorvastatin Calcium [Lipitor] 20 mg PO DAILY 09/22/16 [History] Calcium Carbonate [Calcium] 600 mg PO DAILY 09/22/16 [History] Albuterol Inhaler [Ventolin Hfa Inhaler] 1 - 2 puff INHALATION RT-Q6H PRN 09/11/17 [History] Ranitidine HCl 150 mg PO BID 02/21/18 [History] rOPINIRole HCL [Requip] 0.25 mg PO HS PRN 02/21/18 [History] [place]-3 Fatty Acids/Fish Oil [Fish Oil 1,000 mg Softgel] 1 each PO DAILY 12/30/18 [History] Budesonide/Formoterol Fumarate [Symbicort 160-4.5 Mcg Inhaler] 2 puff INHALATION BID 02/05/19 [History] Follow up Appointment(s)/Referral(s): Corazon Jules MD [STAFF PHYSICIAN] - 03/04/19 Patient Instructions/Handouts: Peptic Ulcer (DC), Gastritis (DC), Hiatal Hernia (DC) Discharge Disposition: HOME SELF-CARE
[2019-02-06 11:47] VITALS: RESP 16
[2019-02-06 11:56] VITALS: BP 146/80; PULSE 78
== END 2019-02-06 13:24 | disposition home or self-care (01) ==
LOC: ORWHC2ENDO 09:21
PROVIDERS: ATTEND Surgery Plastic and Reconstructive Surgery
DX: K29.50 Unspecified chronic gastritis without bleeding (principal); K21.0 Gastro-esophageal reflux disease with esophagitis; K22.10 Ulcer of esophagus without bleeding; K44.9 Diaphragmatic hernia without obstruction or gangrene; J45.909 Unspecified asthma, uncomplicated; E07.9 Disorder of thyroid, unspecified; E78.5 Hyperlipidemia, unspecified; M19.90 Unspecified osteoarthritis, unspecified site; Z90.710 Acquired absence of both cervix and uterus; Z87.891 Personal history of nicotine dependence; Z85.3 Personal history of malignant neoplasm of breast; Z90.10 Acquired absence of unspecified breast and nipple; Z79.51 Long term (current) use of inhaled steroids; Z79.82 Long term (current) use of aspirin; Z79.890 Hormone replacement therapy; Z79.899 Other long term (current) drug therapy; Z80.8 Family history of malignant neoplasm of other organs or systems; Z81.8 Family history of other mental and behavioral disorders; Z91.041 Radiographic dye allergy status
CPT/HCPCS: 88305; 43239; J2001; J2704

== ENCOUNTER → 2019-04-30 | Outpatient (CLI) | payer MEDICARE ==
[2019-04-30 14:54] LABS: HCT 45.6 % (34.0-46.0); MCH 31.4 pg (25.0-35.0); MCV 95.1 fL (80.0-100.0); Mean Platelet Volume 7.9; Platelet Count 208 k/uL (150-450); RBC 4.79 m/uL (3.80-5.40); RDW 13.2 % (11.5-15.5)
[2019-04-30 15:46] LABS: Eosinophils # (M) 0.96 k/uL (0-0.7); Monocytes # (M) 0.72 k/uL (0-1.0); Neutrophils # (M) 3.12 k/uL (1.3-7.7); Neutrophils % (M) 52 %; Nucleated Red Blood Cells 0 /100 WBC (0-0); Total Cells Counted 100
[2019-04-30 15:48] LABS: Total Eosinophil Count 960 #EOS/uL (150-300)
== END | disposition home or self-care (01) ==
LOC: LABWHC1 14:03
PROVIDERS: ATTEND Internal Medicine
DX: J45.30 Mild persistent asthma, uncomplicated (principal)
CPT/HCPCS: 36415; 82785; 85008; 85027

== ENCOUNTER → 2019-08-20 | Outpatient (CLI) | payer MEDICARE ==
--- NOTE | 2019-08-21 07:26 | US ---
EXAMINATION TYPE: US thyroid st tissue head/neck DATE OF EXAM: 08/20/2019 COMPARISON: 12/24/2018 CLINICAL HISTORY: 59-year-old female E04.1 Thyroid nodule. Nodule right TECHNIQUE: Multiple sonographic images of the thyroid gland are obtained. FINDINGS: GLAND SIZE: Right Lobe: 4.2 x 2.2 x 2.0 cm Overall Parenchyma: heterogenous Left Lobe: 3.6 x 1.0 x 0.9 cm Overall Parenchyma: heterogeneous Isthmus Thickness: 0.2 cm NODULES RIGHT: # of nodules measured on right: 1 1. 2.7 X 1.7 x 1.7 cm isoechoic solid nodule at the upper pole with well-defined margins; This nod ule is wider than tall and shows intranodular vascularity. Prior size: 2.5 x 1.5 x 1.8 cm Bilateral neck scanned, no evidence of lymphadenopathy. Stable nodule right lobe. IMPRESSION: Relatively stable solid right-sided thyroid nodule measuring 2.7 x 1.7 cm (versus 2.5 x 1.8 cm, previ ously).
== END | disposition home or self-care (01) ==
LOC: RADUSWWP 15:42
PROVIDERS: ATTEND Otolaryngology
DX: E04.1 Nontoxic single thyroid nodule (principal)
CPT/HCPCS: 76536

== ENCOUNTER → 2019-09-16 | Outpatient (CLI) | payer MEDICARE ==
--- NOTE | 2019-09-17 03:41 | MR ---
EXAMINATION TYPE: MR brain wo/w con DATE OF EXAM: 09/16/2019 COMPARISON: None HISTORY: Migraines CONTRAST: Standard multiplanar, multisequence MRI departmental protocol utilizing 7 mL intravenous Gadavist sachi olinium contrast. Ventricles and sulci appear normal. There is no mass effect nor midline shift. There is no sign of in tracranial hemorrhage. Brainstem appears intact. Diffusion images show no evidence of acute cortical infarct. The corpus callosum appears normal. Sella turcica appears normal. There is 4 mm focus of inc reased signal at the emerson-white matter junction right frontal lobe on the FLAIR images. There is genesis lar 4 mm focus in the medial left posterior frontal lobe. There is 3 mm focus in the right posterior frontal lobe. There is 3 mm focus of increased signal at the emerson-white matter junction right parieta l lobe. Calvarium appears normal. There is some mucosal thickening in both maxillary sinuses. There is no evidence of orbital mass. IMPRESSION: There are a few nonspecific white matter high signal foci in the frontal and parietal lobes. Otherwis e negative exam. No evidence of cortical infarct. Mild maxillary sinusitis.
== END | disposition home or self-care (01) ==
LOC: RADMRIMAIN 16:26
PROVIDERS: ATTEND Family Medicine
DX: R90.82 White matter disease, unspecified (principal)
CPT/HCPCS: 70553; A9585

== ENCOUNTER 2019-10-06 18:04 | Emergency (ER) | payer MEDICARE ==
[2019-10-06 18:15] VITALS: TEMP 98
[2019-10-06] MEDS ORDERED: MAG HYDROX/AL HYDROX/SIMETH 30 ML, HYOSCYAMINE ELIXIR 10 ML, LIDOCAINE VISCOUS 2% 10 ML PO STA ×3 (18:56)
[2019-10-06] MEDS ORDERED: SODIUM CHLORIDE 0.9% 1,000 ML IV STA (18:56)
[2019-10-06] MEDS ORDERED: FAMOTIDINE 20 MG/2 ML VIAL IV STA (18:56)
[2019-10-06 19:24] LABS: Basophils % (A) 0 %; Eosinophils # (A) 0.2 k/uL (0-0.7); Eosinophils % (A) 3 %; HCT 44.4 % (34.0-46.0); HGB 14.9 gm/dL (11.4-16.0); Lymphocytes # (A) 1.1 k/uL (1.0-4.8); Lymphocytes % (A) 17 %; MCH 31.5 pg (25.0-35.0); MCHC 33.6 g/dL (31.0-37.0); MCV 93.9 fL (80.0-100.0); Mean Platelet Volume 9.2; Monocytes # (A) 0.7 k/uL (0-1.0); Monocytes % (A) 10 %; Neutrophils # (A) 4.4 k/uL (1.3-7.7); Neutrophils % (A) 67 %; Platelet Count 197 k/uL (150-450); RBC 4.73 m/uL (3.80-5.40); RDW 12.8 % (11.5-15.5); WBC 6.5 k/uL (3.8-10.6)
[2019-10-06 19:32] LABS: ALT 20 U/L (4-34); AST 31 U/L (14-36); African American GFR (CKD) >90 (>60 ml/min/1.73 sqM); Albumin 4.2 g/dL (3.5-5.0); Alkaline Phosphatase 95 U/L (38-126); Amylase 48 U/L (30-110); Anion Gap 7 mmol/L; Blood Urea Nitrogen 10 mg/dL (7-17); Calcium 9.2 mg/dL (8.4-10.2); Carbon Dioxide 25 mmol/L (22-30); Chloride 106 mmol/L (98-107); Glucose 101 mg/dL (74-99); Non-African American GFR(CKD) >90 (>60 ml/min/1.73 sqM); Sodium 138 mmol/L (137-145); Total Bilirubin 0.6 mg/dL (0.2-1.3); Total Protein 6.8 g/dL (6.3-8.2)
[2019-10-06 19:35] LABS: Amorphous Sediment,Urine Rare /hpf; RBC,Urine 2 /hpf (0-5); Squamous Epithelial Cell,Urine 1 /hpf (0-4); WBC,Urine 1 /hpf (0-5)
[2019-10-06 19:41] LABS: Appearance,Urine Clear (Clear); Color,Urine Yellow
[2019-10-06 19:43] LABS: Bilirubin,Urine Negative (Negative); Glucose,Urine (UA) Negative (Negative); Ketones,Urine Negative (Negative); Protein,Urine Negative (Negative); Specific Gravity,Urine 1.005 (1.001-1.035); Urobilinogen,Urine 0.2 mg/dL (<2.0)
[2019-10-06 19:44] LABS: Blood,Urine Small (Negative); Leukocyte Esterase,Urine Negative (Negative); Nitrite,Urine Negative (Negative)
--- NOTE | 2019-10-06 19:46 | ED ---
General Adult HPI - General Chief complaint: Abdominal Pain Stated complaint: abd pain Time Seen by Provider: 10/06/19 18:20 Source: patient, RN notes reviewed Mode of arrival: ambulatory Limitations: no limitations - History of Present Illness Initial comments: 59-year-old female with a past medical history of asthma, breast cancer, GERD, hyperlipidemia presents to the emergency department for epigastric pain. Patient reports that she has had upper abdominal and right upper quadrant pain radiating to the right shoulder for about a week. Patient states that in February she was supposed to have her gallbladder removed but never did so. Patient reports she has a history of gastric ulcers however this does not feel similar. Denies any nausea vomiting. Denies diarrhea. Denies fevers or chills. Patient has no other complaints at this time including shortness of breath, chest pain, nausea or vomiting, headache, or visual changes. - Related Data Home Medications Medication Instructions Recorded Confirmed Levothyroxine Sodium [Synthroid] 100 mcg PO DAILY 06/30/13 03/11/19 Montelukast [Singulair] 10 mg PO DAILY 06/30/13 03/11/19 Aspirin 81 mg PO DAILY 04/06/16 03/11/19 Atorvastatin Calcium [Lipitor] 20 mg PO DAILY 09/22/16 03/11/19 Albuterol Inhaler (Mhu) [Ventolin 1 - 2 puff INHALATION Q6HR PRN 09/11/17 03/11/19 Hfa Inhaler] Budesonide/Formoterol Fumarate 2 puff INHALATION BID 02/05/19 03/11/19 [Symbicort 160-4.5 Mcg Inhaler] Calcium(Dose Unknown) 1 tab PO DAILY 03/11/19 03/11/19 Melatonin 2.5 mg PO HS PRN 03/11/19 03/11/19 Pantoprazole(Dose Unknown) 1 tab PO 1200 03/11/19 03/11/19 dilTIAZem HCL [Diltiazem HCl] 30 mg PO BID 03/11/19 03/11/19 Allergies Allergy/AdvReac Type Severity Reaction Status Date / Time Iodinated Contrast Media Allergy eye Verified 10/06/19 18:13 [Iodinated Contrast Media - SWELLING IV Dye] Review of Systems ROS Statement: Those systems with pertinent positive or pertinent negative responses have been documented in the HPI. ROS Other: All systems not noted in ROS Statement are negative. Past Medical History Past Medical History: Asthma, Cancer, GERD/Reflux, Hyperlipidemia, Osteoart hritis (OA), Thyroid Disorder Additional Past Medical History / Comment(s): BREAST CANCER (in remission.) History of Any Multi-Drug Resistant Organisms: None Reported Past Surgical History: Hysterectomy Additional Past Surgical History / Comment(s): mastectomy 2001, deviated septum Past Anesthesia/Blood Transfusion Reactions: No Reported Reaction Past Psychological History: No Psychological Hx Reported Past Alcohol Use History: Occasional Past Drug Use History: None Reported - Past Family History Mother Family Medical History: No Reported History Additional Family Medical History / Comment(s): alzhemiers Father Family Medical History: Cancer Additional Family Medical History / Comment(s): skin cancer General Exam Limitations: no limitations General appearance: alert, in no apparent distress Head exam: Present: atraumatic, normocephalic, normal inspection Eye exam: Present: normal appearance, PERRL, EOMI. Absent: scleral icterus, conjunctival injection, periorbital swelling ENT exam: Present: normal exam, mucous membranes moist Neck exam: Present: normal inspection, full ROM. Absent: tenderness, meningismus, lymphadenopathy Respiratory exam: Present: normal lung sounds bilaterally. Absent: respiratory distress, wheezes, rales, rhonchi, stridor Cardiovascular Exam: Present: regular rate, normal rhythm, normal heart sounds. Absent: systolic murmur, diastolic murmur, rubs, gallop, clicks GI/Abdominal exam: Present: soft, tenderness (patient has right upper quadrant epigastric abdominal tenderness), normal bowel sounds. Absent: distended, guarding, rebound, rigid Back exam: Absent: CVA tenderness (R), CVA tenderness (L) Neurological exam: Present: alert Course Vital Signs 10/06/19 18:11 Temperature 98.0 F Pulse Rate 91 Respiratory 18 Rate Blood Pressure 152/90 O2 Sat by Pulse 98 Oximetry EKG Findings - EKG Comments: EKG Findings:: normal sinus rhythm, ventricular rate 78, LA interval 144, QTC 444 Medical Decision Making - Medical Decision Making CBC CMP unremarkable. Amylase and lipase are within normal limits. Urinalysis is negative. Patient has mild epigastric and right upper quadrant tenderness. However no guarding or rebound. Patient does not have acute abdomen. she did have some mild diarrhea while in the emergency room. EKG is unremarkable. Troponin is negative. It is soft to palpation. Ultrasound was negative for acute process. Patient was previously going to see Dr. Erickson for cholecystectomy. She will follow-up with her. She will continue to take her Protonix given her history of stomach ulcer. If she has any worsening symptoms she will return here to the emergency department. - Lab Data Result diagrams: 10/06/19 19:05 10/06/19 19:05 Lab Results 10/06/19 10/06/19 10/06/19 Range/Units 19:05 19:05 19:05 WBC 6.5 (3.8-10.6) k/uL RBC 4.73 (3.80-5.40) m/uL Hgb 14.9 (11.4-16.0) gm/dL Hct 44.4 (34.0-46.0) % MCV 93.9 (80.0-100.0) fL MCH 31.5 (25.0-35.0) pg MCHC 33.6 (31.0-37.0) g/dL RDW 12.8 (11.5-15.5) % Plt Count 197 (150-450) k/uL Neutrophils % 67 % Lymphocytes % 17 % Monocytes % 10 % Eosinophils % 3 % Basophils % 0 % Neutrophils # 4.4 (1.3-7.7) k/uL Lymphocytes # 1.1 (1.0-4.8) k/uL Monocytes # 0.7 (0-1.0) k/uL Eosinophils # 0.2 (0-0.7) k/uL Basophils # 0.0 (0-0.2) k/uL Sodium 138 (137-145) mmol/L Potassium 4.0 (3.5-5.1) mmol/L Chloride 106 (98-107) mmol/L Carbon Dioxide 25 (22-30) mmol/L Anion Gap 7 mmol/L BUN 10 (7-17) mg/dL Creatinine 0.49 L (0.52-1.04) mg/dL Est GFR (CKD-EPI)AfAm >90 (>60 ml/min/1.73 sqM) Est GFR (CKD-EPI)NonAf >90 (>60 ml/min/1.73 sqM) Glucose 101 H (74-99) mg/dL Plasma Lactic Acid Godfrey (0.7-2.0) mmol/L Calcium 9.2 (8.4-10.2) mg/dL Total Bilirubin 0.6 (0.2-1.3) mg/dL AST 31 (14-36) U/L ALT 20 (4-34) U/L Alkaline Phosphatase 95 (38-126) U/L Troponin I (0.000-0.034) ng/mL Total Protein 6.8 (6.3-8.2) g/dL Albumin 4.2 (3.5-5.0) g/dL Amylase 48 (30-110) U/L Lipase 135 (23-300) U/L Urine Color Yellow Urine Appearance Clear (Clear) Urine pH 8.0 (5.0-8.0) Ur Specific [place] 1.005 (1.001-1.035) Urine Protein Negative (Negative) Urine Glucose (UA) Negative (Negative) Urine Ketones Negative (Negative) Urine Blood Small (Negative) Urine Nitrite Negative (Negative) Urine Bilirubin Negative (Negative) Urine Urobilinogen 0.2 (<2.0) mg/dL Ur Leukocyte Esterase Negative (Negative) Urine RBC 2 (0-5) /hpf Urine WBC 1 (0-5) /hpf Ur Squamous Epith Cells 1 (0-4) /hpf Amorphous Sediment Rare H (None) /hpf 10/06/19 10/06/19 Range/Units 19:05 19:05 WBC (3.8-10.6) k/uL RBC (3.80-5.40) m/uL Hgb (11.4-16.0) gm/dL Hct (34.0-46.0) % MCV (80.0-100.0) fL MCH (25.0-35.0) pg MCHC (31.0-37.0) g/dL RDW (11.5-15.5) % Plt Count (150-450) k/uL Neutrophils % % Lymphocytes % % Monocytes % % Eosinophils % % Basophils % % Neutrophils # (1.3-7.7) k/uL Lymphocytes # (1.0-4.8) k/uL Monocytes # (0-1.0) k/uL Eosinophils # (0-0.7) k/uL Basophils # (0-0.2) k/uL Sodium (137-145) mmol/L Potassium (3.5-5.1) mmol/L Chloride (98-107) mmol/L Carbon Dioxide (22-30) mmol/L Anion Gap mmol/L BUN (7-17) mg/dL Creatinine (0.52-1.04) mg/dL Est GFR (CKD-EPI)AfAm (>60 ml/min/1.73 sqM) Est GFR (CKD-EPI)NonAf (>60 ml/min/1.73 sqM) Glucose (74-99) mg/dL Plasma Lactic Acid Godfrey 0.8 (0.7-2.0) mmol/L Calcium (8.4-10.2) mg/dL Total Bilirubin (0.2-1.3) mg/dL AST (14-36) U/L ALT (4-34) U/L Alkaline Phosphatase (38-126) U/L Troponin I <0.012 (0.000-0.034) ng/mL Total Protein (6.3-8.2) g/dL Albumin (3.5-5.0) g/dL Amylase (30-110) U/L Lipase (23-300) U/L Urine Color Urine Appearance (Clear) Urine pH (5.0-8.0) Ur Specific [place] (1.001-1.035) Urine Protein (Negative) Urine Glucose (UA) (Negative) Urine Ketones (Negative) Urine Blood (Negative) Urine Nitrite (Negative) Urine Bilirubin (Negative) Urine Urobilinogen (<2.0) mg/dL Ur Leukocyte Esterase (Negative) Urine RBC (0-5) /hpf Urine WBC (0-5) /hpf Ur Squamous Epith Cells (0-4) /hpf Amorphous Sediment (None) /hpf Disposition Clinical Impression: Abdominal pain Disposition: HOME SELF-CARE Condition: Good Instructions (If sedation given, give patient instructions): Abdominal Pain (ED) Additional Instructions: please continue to take Protonix as directed. If needed take Tylenol 3 for severe pain. Do not drive while taking this. Return to the emergency room for any worsening symptoms. Otherwise follow-up with Dr. Jules. Is patient prescribed a controlled substance at d/c from ED?: No Referrals: Errol Mccollum MD [Primary Care Provider] - 1-2 days Corazon Jules MD [STAFF PHYSICIAN] - 1-2 days Time of Disposition: 20:39
--- NOTE | 2019-10-06 19:49 | US ---
EXAMINATION TYPE: US abdomen limited DATE OF EXAM: 10/06/2019 COMPARISON: US CLINICAL HISTORY: ruq. Pt states pain and indigestion post prandial EXAM MEASUREMENTS: Liver Length: 14.2 cm Gallbladder Wall: 0.2 cm CBD: 0.6 cm Right Kidney: 10.0 x 4.4 x 5.3 cm Pancreas: wnl Liver: wnl Gallbladder: wnl Evidence for sonographic Keonig's sign: No CBD: wnl Right Kidney: wnl, lower pole gassed out IMPRESSION: Normal right kidney. No evidence of pancreatic mass. No gallstones or dilated ducts.
[2019-10-06] MEDS ORDERED: HYDROmorphone 0.5 MG/0.5 ML SYRINGE IVP STA (20:06)
[2019-10-06] MEDS ORDERED: ACET/COD 300 MG/30 MG STARTER PACK 6 TAB BTL PO STA (20:07)
[2019-10-06 20:46] VITALS: BP 144/97; PULSE 81; RESP 16
== END 2019-10-06 20:50 | disposition home or self-care (01) ==
LOC: EC 18:04
DX: R10.13 Epigastric pain (principal); R10.11 Right upper quadrant pain; R19.7 Diarrhea, unspecified; J45.909 Unspecified asthma, uncomplicated; M19.90 Unspecified osteoarthritis, unspecified site; E07.9 Disorder of thyroid, unspecified; E78.5 Hyperlipidemia, unspecified; K21.9 Gastro-esophageal reflux disease without esophagitis; K25.9 Gastric ulcer, unspecified as acute or chronic, without hemorrhage or perforation; Z79.51 Long term (current) use of inhaled steroids; Z79.899 Other long term (current) drug therapy; Z79.890 Hormone replacement therapy; Z79.82 Long term (current) use of aspirin; Z91.041 Radiographic dye allergy status; Z85.3 Personal history of malignant neoplasm of breast; Z90.710 Acquired absence of both cervix and uterus; Z87.11 Personal history of peptic ulcer disease
CPT/HCPCS: 36415; 93005; 80053; 82150; 83605; 83690; 84484; 85025; 81001; 76705; 99284; 96374; 96375; 96361; J1170

== ENCOUNTER → 2019-10-20 | Outpatient (CLI) | payer MEDICARE ==
--- NOTE | 2019-10-21 06:13 | NM ---
EXAMINATION TYPE: NM hepatobiliary w EF DATE OF EXAM: 10/20/2019 COMPARISON: Limited abdominal ultrasound 2 weeks ago. HISTORY: Disorder of gallbladder per order. Abdominal pain, heartburn, reflux, and nausea all probati on. TECHNIQUE: After the intravenous administration of 3.98 mCi Tc 99m Mebrofenin hepatobiliary scintigra phy is performed. Immediate images post injection. FINDINGS: There is satisfactory initial accumulation of tracer by the liver. The gallbladder is visualized wit hin 20 minutes. The small bowel activity is noted within 20 minutes. At one hour 8 ounces of oral e nsure plus is given to mimic CCK and gallbladder ejection fraction is calculated at 75 %, in the norm al range. Therefore there is no scintigraphic evidence of cystic or common bile duct obstruction to suggest acute cholecystitis or gallbladder dyskinesia. IMPRESSION: Exam is within normal limits.
== END | disposition home or self-care (01) ==
LOC: RADNMMAIN 14:43
PROVIDERS: ATTEND Family Medicine
DX: K82.9 Disease of gallbladder, unspecified (principal)
CPT/HCPCS: 78226; A9537

== ENCOUNTER 2019-11-28 07:50 | Day surgery (SDC) | payer MEDICARE ==
[~2019-11-28 07:50] MED LIST changes: +DEXAMETHASONE SOD PHOSPHATE 10 MG/ML 1 ML VIAL IV ONE; +HEPARIN SODIUM,PORCINE 5,000 UNIT/ML 1 ML VIAL SQ ONE; +HYDROmorphone 0.5 MG/0.5 ML SYRINGE IVP PRN; -LIDOCAINE 1% 20 ML VIAL (10MG/ML) FOR IV START INTRADERMA PRN; +ONDANSETRON 4 MG/2 ML VIAL IVP ONE; +SCOPOLAMINE 1.5MG/72HR PATCH TRANSDERM ONE
[2019-11-28] MEDS ORDERED: ACETAMINOPHEN TAB 500 MG TAB PO STA (08:11)
[2019-11-28] MEDS ORDERED: GABAPENTIN 300 MG CAP PO STA (08:11)
[2019-11-28] MEDS ORDERED: SCOPOLAMINE 1.5MG/72HR PATCH TRANSDERM STA (08:11)
--- NOTE | 2019-11-28 08:16 | P.GSHP ---
History of Present Illness H&P Date: 11/28/19 CHIEF COMPLAINT: Cholecystitis HISTORY OF PRESENT ILLNESS: The patient is a 59-year-old female who presents with history of epigastric including right upper quadrant abdominal pain. She underwent diagnostic studies for her gallbladder. Separately her clinical picture was consistent with cholecystitis. Now she presents for surgical intervention. PAST MEDICAL HISTORY: Please see list PAST SURGICAL HISTORY: Please see list MEDICATIONS: Please see list ALLERGIES: Please see list SOCIAL HISTORY: Please see list FAMILY HISTORY: Please see list REVIEW OF ORGAN SYSTEMS: CONSTITUTIONAL: No reports of fevers or chills. HEENT: Denies any troubles with the vision or hearing. ENDOCRINE: No reports diabetes. Has hypothyroidism RESPIRATORY: No recent pneumonias. CARDIOVASCULAR: Denies chest pain or palpitations. History of hypertension GI: No blood in stools or constipation. MUSCULOSKELETAL: Has occasional joint pain including back pain. NEURO: No seizure disorders or headaches. No recent stroke. PSYCH: No depression or suicidal ideation. Has anxiety GENITOURINARY: No active blood in urine. No urinary hesitancy. HEMATOLOGIC: No personal or family history of DVTs or pulmonary emboli. SKIN: No skin cancer. PHYSICAL EXAM: VITAL SIGNS: Afebrile vital signs stable GENERAL: Well-developed pleasant in no acute distress. HEENT: No scleral icterus. Extraocular movements grossly intact. Moist buccal mucosa. NECK: Supple without lymphadenopathy. CHEST: Unlabored respirations. Equal bilateral excursions. CARDIOVASCULAR: Regular rate regular rhythm rhythm. Distal 2+ pulses. ABDOMEN: Soft, nondistended. Tender along the epigastrium and right upper quadrant. MUSCULOSKELETAL: No clubbing, cyanosis, or edema. NEURO: Cranial nerves II to XII within normal limits. No focal or lateralizing signs. PSYCH: Alert and oriented to person, place and time. SKIN: Well-perfused good skin turgor. ASSESSMENT: 1. Epigastric and right upper quadrant abdominal pain 2. Chronic cholecystitis PLAN: 1. Will need a robotic cholecystectomy possible open. Benefits and risks were described. 2. Heparin for DVT prophylaxis 5000 units. 3. Antibiotic prophylaxis. Past Medical History Past Medical History: Asthma, Cancer, GERD/Reflux, Hyperlipidemia, Osteoarthritis (OA), Thyroid Disorder Additional Past Medical History / Comment(s): BREAST CANCER (in remission.) History of Any Multi-Drug Resistant Organisms: None Reported Past Surgical History: Hysterectomy Additional Past Surgical History / Comment(s): mastectomy 2002, deviated septum Past Anesthesia/Blood Transfusion Reactions: Motion Sickness Past Psychological History: Anxiety Smoking Status: Former smoker Past Alcohol Use History: Occasional Additional Past Alcohol Use History / Comment(s): quit smoking 40 years ago Past Drug Use History: None Reported - Past Family History Mother Family Medical History: No Reported History Additional Family Medical History / Comment(s): alzhemiers Father Family Medical History: Cancer Additional Family Medical History / Comment(s): skin cancer Medications and Allergies Home Medications Medication Instructions Recorded Confirmed Type Levothyroxine Sodium [Synthroid] 100 mcg PO QAM 06/30/13 11/26/19 History Montelukast [Singulair] 10 mg PO QAM 06/30/13 11/26/19 History Aspirin 81 mg PO DAILY 04/06/16 11/26/19 History Atorvastatin Calcium [Lipitor] 20 mg PO QAM 09/22/16 11/26/19 History Albuterol Inhaler (Mhu) [Ventolin 1 - 2 puff INHALATION Q6HR PRN 09/11/17 11/26/19 History Hfa Inhaler] Budesonide/Formoterol Fumarate 2 puff INHALATION BID 02/05/19 11/26/19 History [Symbicort 160-4.5 Mcg Inhaler] Melatonin 2.5 mg PO HS PRN 03/11/19 11/26/19 History dilTIAZem HCL [Diltiazem HCl] 30 mg PO BID 03/11/19 11/26/19 History ALPRAZolam [Xanax] 0.25 mg PO DAILY PRN 11/26/19 11/26/19 History Calcium Carbonate [Calcium] 1 tab PO DAILY 11/26/19 11/26/19 History Allergies Allergy/AdvReac Type Severity Reaction Status Date / Time Iodinated Contrast Media Allergy eye Verified 11/26/19 15:57 [Iodinated Contrast Media - SWELLING IV Dye]
[2019-11-28] MEDS: LIDOCAINE 1% (10MG/ML) FOR IV START INTRADERMA PRN ×2 (08:19→08:35)
[2019-11-28] MEDS ORDERED: NEOSTIGMINE 1 MG/ML 10 ML VIAL ONE (09:32)
[2019-11-28] MEDS ORDERED: HYDROmorphone (PF) 1 MG/ML ONE (09:32)
[2019-11-28] MEDS ORDERED: PHENYLEPHRINE-0.9% NACL SYG 1 MG/10 ML SYRINGE ONE (09:32)
[2019-11-28] MEDS ORDERED: GLYCOPYRROLATE 0.2 MG/ML 2 ML VIAL ONE (09:32)
[2019-11-28] MEDS ORDERED: fentaNYL (PF) 50 MCG/ML 2 ML AMP ONE (09:32)
[2019-11-28] MEDS ORDERED: MIDAZOLAM 2 MG/2 ML VIAL ONE (09:32)
[2019-11-28] MEDS ORDERED: LIDOCAINE 1% INJ 10MG/ML (20 ML MDV) ONE (09:32)
[2019-11-28] MEDS ORDERED: ROCURONIUM 10 MG/ML (10 ML VIAL) IV ONE (09:32)
[2019-11-28] MEDS ORDERED: PROPOFOL 10 MG/ML 20 ML VIAL IV ONE (09:32)
[2019-11-28] MEDS ORDERED: BUPIVACAINE (PF) 0.25% 30 ML VIAL SQ ONE (09:46)
[2019-11-28 10:46] VITALS: TEMP 97.3
[2019-11-28] MEDS ORDERED: KETOROLAC 15 MG/ML 1 ML VIAL IVP ONE (10:51)
[2019-11-28] MEDS ORDERED: LACTATED RINGERS 1,000 ML IV ONE (10:59)
--- NOTE | 2019-11-28 12:10 | P.OP ---
Date of Procedure: 11/28/19 Description of Procedure: SURGEON: CORAZON JULES MD PREOPERATIVE DIAGNOSES: 1. Chronic cholecystitis 2. Hypertensive heart disease 3. Hypothyroidism 4. Chronic obstructive pulmonary disease 5. History of breast cancer 6. Generalized anxiety disorder POSTOPERATIVE DIAGNOSES: 1. Chronic cholecystitis 2. Hypertensive heart disease 3. Hypothyroidism 4. Chronic obstructive pulmonary disease 5. History of breast cancer 6. Generalized anxiety disorder 7. Peritoneal adhesions, right upper quadrant OPERATION: 1. Robotic-assisted da Jarred Xi laparoscopic lysis of adhesions 2. Robotic-assisted da Jarred Xi laparoscopic cholecystectomy, multiport with FIREFLY ESTIMATED BLOOD LOSS: 5 mL. SPECIMENS REMOVED: Gallbladder. COMPLICATIONS: None. OPERATIVE FINDINGS: 1. Moderate scarring along right upper quadrant of omentum to gallbladder and pericholecystic adhesion 2. Chronic cholecystitis 3. Pelvic adhesions undisturbed INDICATIONS: The patient is a 59-year-old female who presents with symptomatic gallstones. Robotic assisted laparoscopic approach was described. Benefits and risks of the procedure including but not limited to bleeding, infection, injury to the biliary tree was described. Informed consent was obtained. DESCRIPTION OF PROCEDURE: Patient was brought to the operating room, placed in supine position. After general induction, the abdomen had been prepped and draped in standard sterile fashion. The robotic da Jarred XI system was primed. After a timeout protocol was performed, the patient had been prepped and draped in standard sterile fashion. The patient was injected with indocyanine green. A 5 mm 0 degrees laparoscopic trocar entry was performed along the left upper quadrant. The abdomen insufflated to 15 mmHg pressure which was tolerated well. Diagnostic laparoscopy demonstrated no injury to bowel viscera or mesentery. The liver surface was unremarkable. Next, two 8 mm robotic ports were placed along the right upper abdomen. The camera 8-mm port was maintained along the epigastrium. Another 8 mm port was placed along the left upper abdominal wall after exchanging the 5 mm port. Please note that the ports were placed at least 10 to 15 cm away from the target anatomy of the gallbladder. The robot was docked along the left lateral abdomen. The patient was repositioned in reverse Trendelenburg position. Using a grasper for arm 3, a grasper for arm 4, including hook cautery for arm 1, the robotic system was docked and primed as described. Instruments were interchanged by the unit assistant including hook cautery, Bovie cautery and clip appliers. I had sat at the console. Peritoneal adhesions were identified of omentum to gallbladder with pericholecystic adhesions. Lysis of adhesions was performed using hook cautery. Next attention was brought to the infundibulum and cystic structures. The infundibulum and cystic duct were dissected free from surrounding tissues. The cystic duct was isolated. FIREFLY was used to identify the cystic artery and cystic structures. A critical view of safety was obtained. Large PLASTIC clips were used throughout the entire case. Using a clip sap pp consultant, 2 clips were placed at the junction of the infundibulum and cystic duct. The cystic duct was divided between clips. Next, the cystic artery was similarly clipped and cauterized. Electro-Bovie cautery was used to remove the gallbladder from the hepatic fossa. Hemostasis was checked and found to be adequate. The robot was undocked. I re-scrubbed into the case. Using a 10 mm Endo Catch bag via the left upper quadrant incision, the specimen was removed from the abdominal cavity. All pneumoperitoneum instruments were evacuated from the abdominal cavity. The incisions were reapproximated using 4-0 Monocryl in an interrupted subcuticular fashion. Fascial defects were less than 8 mm in size. Please note along the trocar sites, local anesthetic was placed as a field block prior to insertion of all instruments. Liquid glue was applied to the skin. At the end of the procedure needle, sponge, and instrument count had been verified correct by the certified hyperbaric technician. The patient was transferred to postanesthesia care unit in stable condition. Intraoperative films were shared with the patient's family. Plan - Discharge Summary New Discharge Prescriptions: New Acetaminophen Tab [Tylenol Tab] 1,000 mg PO Q6HR PRN #30 tablet PRN Reason: Pain Naproxen [Naprosyn] 250 mg PO TID PRN #30 tab PRN Reason: Pain Continue Montelukast [Singulair] 10 mg PO QAM Levothyroxine Sodium [Synthroid] 100 mcg PO QAM Aspirin 81 mg PO DAILY Atorvastatin Calcium [Lipitor] 20 mg PO QAM Albuterol Inhaler (Mhu) [Ventolin Hfa Inhaler (Mhu)] 1 - 2 puff INHALATION Q6HR PRN PRN Reason: Shortness Of Breath Budesonide/Formoterol Fumarate [Symbicort 160-4.5 Mcg Inhaler] 2 puff INHALATION BID dilTIAZem HCL [Diltiazem HCl] 30 mg PO BID Melatonin 2.5 mg PO HS PRN PRN Reason: Insomnia ALPRAZolam [Xanax] 0.25 mg PO DAILY PRN PRN Reason: Anxiety Calcium Carbonate [Calcium] 1 tab PO DAILY Acetaminophen/Diphenhydramine [Tylenol PM 500-25mg] 1 tab PO HS PRN PRN Reason: Insomnia Discharge Medication List Levothyroxine Sodium [Synthroid] 100 mcg PO QAM 06/30/13 [History] Montelukast [Singulair] 10 mg PO QAM 06/30/13 [History] Aspirin 81 mg PO DAILY 04/06/16 [History] Atorvastatin Calcium [Lipitor] 20 mg PO QAM 09/22/16 [History] Albuterol Inhaler (Mhu) [Ventolin Hfa Inhaler (Mhu)] 1 - 2 puff INHALATION Q6HR PRN 09/11/17 [History] Budesonide/Formoterol Fumarate [Symbicort 160-4.5 Mcg Inhaler] 2 puff INHALATION BID 02/05/19 [History] Melatonin 2.5 mg PO HS PRN 03/11/19 [History] dilTIAZem HCL [Diltiazem HCl] 30 mg PO BID 03/11/19 [History] ALPRAZolam [Xanax] 0.25 mg PO DAILY PRN 11/26/19 [History] Calcium Carbonate [Calcium] 1 tab PO DAILY 11/26/19 [History] Acetaminophen Tab [Tylenol Tab] 1,000 mg PO Q6HR PRN #30 tablet 11/28/19 [Rx] Acetaminophen/Diphenhydramine [Tylenol PM 500-25mg] 1 tab PO HS PRN 11/28/19 [History] Naproxen [Naprosyn] 250 mg PO TID PRN #30 tab 11/28/19 [Rx] Follow up Appointment(s)/Referral(s): Corazon Jules MD [STAFF PHYSICIAN] - 12/09/19 Patient Instructions/Handouts: *[facility] - Managing Your Pain After Surgery Without Opioids, *[facility] - Scopalamine Patch Instructions, Laparoscopic Cholecystectomy (DC) Activity/Diet/Wound Care/Special Instructions: No lifting over 10 pounds in 2 weeks until Dec 11. June shower. No bath tub soaks for two weeks until Dec 11. Diet as tolerated. Use Tylenol and ibuprofen/Aleve scheduled for the next 24-48 hours for best pain relief. Use ice along incisions for the today to prevent swelling. Discharge Disposition: HOME SELF-CARE
[2019-11-28] MEDS ORDERED: ONDANSETRON ODT 4 MG TAB PO ONE (14:00)
[2019-11-28 14:20] VITALS: BP 142/76; PULSE 74; RESP 18
== END 2019-11-28 14:20 | disposition home or self-care (01) ==
LOC: OR 07:50
PROVIDERS: ATTEND Surgery Plastic and Reconstructive Surgery
DX: K81.1 Chronic cholecystitis (principal); R59.0 Localized enlarged lymph nodes; K66.0 Peritoneal adhesions (postprocedural) (postinfection); N73.6 Female pelvic peritoneal adhesions (postinfective); I11.9 Hypertensive heart disease without heart failure; E03.9 Hypothyroidism, unspecified; J44.9 Chronic obstructive pulmonary disease, unspecified; F41.1 Generalized anxiety disorder; K21.9 Gastro-esophageal reflux disease without esophagitis; E78.5 Hyperlipidemia, unspecified; M19.90 Unspecified osteoarthritis, unspecified site; F41.9 Anxiety disorder, unspecified; I49.9 Cardiac arrhythmia, unspecified; Z91.048 Other nonmedicinal substance allergy status; Z88.1 Allergy status to other antibiotic agents; Z88.8 Allergy status to other drugs, medicaments and biological substances; Z85.3 Personal history of malignant neoplasm of breast; Z90.710 Acquired absence of both cervix and uterus; Z90.10 Acquired absence of unspecified breast and nipple; Z98.890 Other specified postprocedural states; Z87.898 Personal history of other specified conditions; Z87.891 Personal history of nicotine dependence; Z79.890 Hormone replacement therapy; Z79.899 Other long term (current) drug therapy; Z79.82 Long term (current) use of aspirin; Z79.51 Long term (current) use of inhaled steroids; Z91.041 Radiographic dye allergy status; Z81.8 Family history of other mental and behavioral disorders; Z80.8 Family history of malignant neoplasm of other organs or systems
CPT/HCPCS: 88304; 47562; J2250; J1644; J1100; J2710; J0690; J2405; J2001; J3010; J1170 ×2; J1885; J2370; J2704

== ENCOUNTER 2019-12-17 12:40 | Emergency (ER) | payer MEDICARE ==
[2019-12-17 12:59] VITALS: RESP 18; TEMP 97.7
[2019-12-17] MEDS ORDERED: ALBUTEROL NEBULIZED 2.5 MG/3 ML INHALATION STA (13:10)
[2019-12-17] MEDS ORDERED: methylPREDNISolone SOD SUCCI 125 MG/2 ML VIAL IV STA (13:10)
[2019-12-17] MEDS ORDERED: IPRATROPIUM 0.5 MG/2.5 ML NEBU INHALATION STA (13:10)
--- NOTE | 2019-12-17 13:13 | ED ---
General Adult HPI - General Chief complaint: Shortness of Breath Stated complaint: SOB Time Seen by Provider: 12/17/19 12:58 Source: patient, RN notes reviewed, old records reviewed Mode of arrival: wheelchair Limitations: no limitations - History of Present Illness Initial comments: 59-year-old female presenting from primary care physician for evaluation of dyspnea and concern for pulmonary embolism. Patient has asthma and states for the past several days she's had worsening cough and dyspnea. No fever. She is not currently on home oxygen. She had a recent cholecystectomy and states she has been doing quite well in the postoperative period. She had had an oxygen desaturation with ambulation into the low 80s. This returned normal with rest. She did state this was similar to her normal asthma. - Related Data Home Medications Medication Instructions Recorded Confirmed Levothyroxine Sodium [Synthroid] 100 mcg PO QAM 06/30/13 12/17/19 Montelukast [Singulair] 10 mg PO QAM 06/30/13 12/17/19 Aspirin 81 mg PO DAILY 04/06/16 12/17/19 Atorvastatin Calcium [Lipitor] 20 mg PO QAM 09/22/16 12/17/19 Budesonide/Formoterol Fumarate 2 puff INHALATION RT-BID 02/05/19 12/17/19 [Symbicort 160-4.5 Mcg Inhaler] dilTIAZem HCL [Diltiazem HCl] 30 mg PO BID 03/11/19 12/17/19 Calcium Carbonate [Calcium] 1 tab PO DAILY 11/26/19 12/17/19 Acetaminophen/Diphenhydramine 1 tab PO HS PRN 11/28/19 12/17/19 [Tylenol PM 500-25mg] Albuterol Nebulized [Ventolin 2.5 mg INHALATION RT-Q6H PRN 12/17/19 12/17/19 Nebulized] Albuterol Sulfate [Ventolin HFA] 1 - 2 puff INHALATION RT-Q6H PRN 12/17/19 Previous Rx's Medication Instructions Recorded Acetaminophen Tab [Tylenol Tab] 1,000 mg PO Q6HR PRN #30 tablet 11/28/19 Allergies Allergy/AdvReac Type Severity Reaction Status Date / Time Iodinated Contrast Media Allergy eye Verified 12/17/19 13:59 [Iodinated Contrast Media - SWELLING IV Dye] Review of Systems ROS Statement: Those systems with pertinent positive or pertinent negative responses have been documented in the HPI. ROS Other: All systems not noted in ROS Statement are negative. Past Medical History Past Medical History: Asthma, Cancer, GERD/Reflux, Hyperlipidemia, Osteoarthritis (OA), Thyroid Disorder Additional Past Medical History / Comment(s): BREAST CANCER (in remission.) History of Any Multi-Drug Resistant Organisms: None Reported Past Surgical History: Cholecystectomy, Hysterectomy Additional Past Surgical History / Comment(s): mastectomy 2002, deviated septum Past Anesthesia/Blood Transfusion Reactions: No Reported Reaction Past Psychological History: No Psychological Hx Reported Smoking Status: Never smoker Past Alcohol Use History: Occasional Past Drug Use History: None Reported - Past Family History Mother Family Medical History: No Reported History Additional Family Medical History / Comment(s): alzhemiers Father Family Medical History: Cancer Additional Family Medical History / Comment(s): skin cancer General Exam Limitations: no limitations General appearance: alert, in no apparent distress Head exam: Present: atraumatic, normocephalic Eye exam: Present: normal appearance, PERRL ENT exam: Present: normal exam Neck exam: Present: normal inspection. Absent: tenderness, meningismus Respiratory exam: Present: respiratory distress, wheezes, decreased breath sounds Cardiovascular Exam: Present: regular rate, normal rhythm GI/Abdominal exam: Present: soft. Absent: distended, tenderness, guarding Extremities exam: Present: normal inspection, normal capillary refill. Absent: pedal edema Neurological exam: Present: alert, oriented X3, CN II-XII intact. Absent: motor sensory deficit Psychiatric exam: Present: normal affect, normal mood Skin exam: Present: warm, dry, intact. Absent: cyanosis, diaphoretic Course Vital Signs 12/17/19 12/17/19 12:55 14:15 Temperature 97.7 F Pulse Rate 104 H Respiratory 18 18 Rate Blood Pressure 167/109 O2 Sat by Pulse 95 Oximetry EKG Findings - EKG Comments: EKG Findings:: EKG: Normal sinus rhythm, left atrial enlargement, no ST segment elevation, rate of 91, CT interval 144, QRS duration 84, QTC 447 Medical Decision Making - Medical Decision Making 1-year-old female with worsening cough and dyspnea. On exam she has decreased air entry bilaterally and wheezing throughout. Moderate respiratory distress. She's given albuterol, Atrovent, steroids. CT angiography has been ordered to rule out pulmonary embolism given the degree of hypoxia. CT is negative for pulmonary embolism Patient has a normal CBC, normal CMP, negative troponin, negative BNP. Case is discussed with Dr. Whatley who will admit. Pulmonology placed on consult. - Lab Data Result diagrams: 12/17/19 13:12/17/19 13:01 Lab Results 12/17/19 12/17/19 12/17/19 Range/Units 13: 13: 13:01 WBC 6.1 (3.8-10.6) k/uL RBC 5.03 (3.80-5.40) m/uL Hgb 15.4 (11.4-16.0) gm/dL Hct 47.3 H (34.0-46.0) % MCV 94.0 (80.0-100.0) fL MCH 30.5 (25.0-35.0) pg MCHC 32.5 (31.0-37.0) g/dL RDW 13.3 (11.5-15.5) % Plt Count 245 (150-450) k/uL Neutrophils % 57 % Lymphocytes % 20 % Monocytes % 8 % Eosinophils % 12 % Basophils % 1 % Neutrophils # 3.5 (1.3-7.7) k/uL Lymphocytes # 1.2 (1.0-4.8) k/uL Monocytes # 0.5 (0-1.0) k/uL Eosinophils # 0.7 (0-0.7) k/uL Basophils # 0.0 (0-0.2) k/uL PT 10.1 (9.0-12.0) sec INR 1.0 (<1.2) APTT 23.8 (22.0-30.0) sec Sodium 141 (137-145) mmol/L Potassium 4.0 (3.5-5.1) mmol/L Chloride 107 (98-107) mmol/L Carbon Dioxide 27 (22-30) mmol/L Anion Gap 7 mmol/L BUN 10 (7-17) mg/dL Creatinine 0.62 (0.52-1.04) mg/dL Est GFR (CKD-EPI)AfAm >90 (>60 ml/min/1.73 sqM) Est GFR (CKD-EPI)NonAf >90 (>60 ml/min/1.73 sqM) Glucose 102 H (74-99) mg/dL Calcium 9.5 (8.4-10.2) mg/dL Magnesium 2.0 (1.6-2.3) mg/dL Total Bilirubin 0.7 (0.2-1.3) mg/dL AST 39 H (14-36) U/L ALT 28 (4-34) U/L Alkaline Phosphatase 104 (38-126) U/L Troponin I (0.000-0.034) ng/mL NT-Pro-B Natriuret Pep pg/mL Total Protein 7.5 (6.3-8.2) g/dL Albumin 4.4 (3.5-5.0) g/dL 12/17/19 12/17/19 Range/Units 13:01 13:01 WBC (3.8-10.6) k/uL RBC (3.80-5.40) m/uL Hgb (11.4-16.0) gm/dL Hct (34.0-46.0) % MCV (80.0-100.0) fL MCH (25.0-35.0) pg MCHC (31.0-37.0) g/dL RDW (11.5-15.5) % Plt Count (150-450) k/uL Neutrophils % % Lymphocytes % % Monocytes % % Eosinophils % % Basophils % % Neutrophils # (1.3-7.7) k/uL Lymphocytes # (1.0-4.8) k/uL Monocytes # (0-1.0) k/uL Eosinophils # (0-0.7) k/uL Basophils # (0-0.2) k/uL PT (9.0-12.0) sec INR (<1.2) APTT (22.0-30.0) sec Sodium (137-145) mmol/L Potassium (3.5-5.1) mmol/L Chloride (98-107) mmol/L Carbon Dioxide (22-30) mmol/L Anion Gap mmol/L BUN (7-17) mg/dL Creatinine (0.52-1.04) mg/dL Est GFR (CKD-EPI)AfAm (>60 ml/min/1.73 sqM) Est GFR (CKD-EPI)NonAf (>60 ml/min/1.73 sqM) Glucose (74-99) mg/dL Calcium (8.4-10.2) mg/dL Magnesium (1.6-2.3) mg/dL Total Bilirubin (0.2-1.3) mg/dL AST (14-36) U/L ALT (4-34) U/L Alkaline Phosphatase (38-126) U/L Troponin I <0.012 (0.000-0.034) ng/mL NT-Pro-B Natriuret Pep 182 pg/mL Total Protein (6.3-8.2) g/dL Albumin (3.5-5.0) g/dL Disposition Clinical Impression: Asthma exacerbation Disposition: ADMITTED IP TO THIS HOSP Condition: Stable Is patient prescribed a controlled substance at d/c from ED?: No Referrals: Errol Mccollum MD [Primary Care Provider] - 1-2 days Time of Disposition: 14:53 Decision to Admit Reason: Admit from EC Decision Date: 12/17/19 Decision Time: 14:53
[2019-12-17] MEDS ORDERED: FAMOTIDINE 20 MG/2 ML VIAL IV STA (13:24)
[2019-12-17] MEDS ORDERED: diphenhydrAMINE 50 MG/ML 1 ML VIAL IVP STA (13:24)
[2019-12-17 13:28] LABS: Basophils % (A) 1 %; Eosinophils # (A) 0.7 k/uL (0-0.7); Eosinophils % (A) 12 %; HCT 47.3 % (34.0-46.0); HGB 15.4 gm/dL (11.4-16.0); Lymphocytes # (A) 1.2 k/uL (1.0-4.8); Lymphocytes % (A) 20 %; MCH 30.5 pg (25.0-35.0); MCHC 32.5 g/dL (31.0-37.0); Mean Platelet Volume 7.3; Monocytes # (A) 0.5 k/uL (0-1.0); Monocytes % (A) 8 %; Neutrophils # (A) 3.5 k/uL (1.3-7.7); Neutrophils % (A) 57 %; Platelet Count 245 k/uL (150-450); RBC 5.03 m/uL (3.80-5.40); RDW 13.3 % (11.5-15.5); WBC 6.1 k/uL (3.8-10.6)
[2019-12-17 13:39] LABS: Partial Thromboplastin Time 23.8 sec (22.0-30.0); Prothrombin Time 10.1 sec (9.0-12.0)
[2019-12-17 13:41] LABS: ALT 28 U/L (4-34); AST 39 U/L (14-36); African American GFR (CKD) >90 (>60 ml/min/1.73 sqM); Albumin 4.4 g/dL (3.5-5.0); Alkaline Phosphatase 104 U/L (38-126); Anion Gap 7 mmol/L; Blood Urea Nitrogen 10 mg/dL (7-17); Calcium 9.5 mg/dL (8.4-10.2); Carbon Dioxide 27 mmol/L (22-30); Chloride 107 mmol/L (98-107); Glucose 102 mg/dL (74-99); Non-African American GFR(CKD) >90 (>60 ml/min/1.73 sqM); Sodium 141 mmol/L (137-145); Total Bilirubin 0.7 mg/dL (0.2-1.3); Total Protein 7.5 g/dL (6.3-8.2)
[2019-12-17] MEDS ORDERED: IPRATROPIUM-ALBUTEROL 3 ML NEB INHALATION PRN (14:45)
--- NOTE | 2019-12-17 15:00 | CT ---
EXAMINATION TYPE: CT angio chest DATE OF EXAM: 12/17/2019 2:48 PM COMPARISON: Chest CT January 08, 2012 HISTORY: Shortness of breath, difficulty breathing CT DLP: 285 mGycm Automated exposure control for dose reduction was used. CONTRAST: CTA scan of the thorax is performed with IV Contrast, patient injected with 100 mL of Isovue 370, pul monary embolism protocol. . FINDINGS: LUNGS: [id number] biapical pleural/parenchymal scarring. No suspicious new focal consolidation. Some respiratory motion artifact degradation seen. There is no pleural effusion or pneumothorax note d. The tracheobronchial tree is patent. No concerning masses. MEDIASTINUM: There is satisfactory enhancement of the pulmonary artery and its branches, there is no CT evidence for pulmonary embolism. There are no greater than 1 cm hilar or mediastinal lymph nodes. No pericardial effusion is seen. Significant underlying pectus excavatum deformity redemonstrated. No aortic aneurysm or dissection. Satisfactory enhancement noted. OTHER: Sjgi-[id number] multilevel spurring in the spine. Slight scoliotic curvature. Persistent gra nular bilateral implants. IMPRESSION: No CT evidence for acute pulmonary embolism. Significant pectus excavatum deformity redem onstrated. Mild chronic parenchymal changes without acute pulmonary process.
--- NOTE | 2019-12-17 15:11 | ED ---
Medical Decision Making - Lab Data Result diagrams: 12/17/19 13:01 12/17/19 13:01 Lab Results 12/17/19 12/17/19 12/17/19 Range/Units 13: 13: 13:01 WBC 6.1 (3.8-10.6) k/uL RBC 5.03 (3.80-5.40) m/uL Hgb 15.4 (11.4-16.0) gm/dL Hct 47.3 H (34.0-46.0) % MCV 94.0 (80.0-100.0) fL MCH 30.5 (25.0-35.0) pg MCHC 32.5 (31.0-37.0) g/dL RDW 13.3 (11.5-15.5) % Plt Count 245 (150-450) k/uL Neutrophils % 57 % Lymphocytes % 20 % Monocytes % 8 % Eosinophils % 12 % Basophils % 1 % Neutrophils # 3.5 (1.3-7.7) k/uL Lymphocytes # 1.2 (1.0-4.8) k/uL Monocytes # 0.5 (0-1.0) k/uL Eosinophils # 0.7 (0-0.7) k/uL Basophils # 0.0 (0-0.2) k/uL PT 10.1 (9.0-12.0) sec INR 1.0 (<1.2) APTT 23.8 (22.0-30.0) sec Sodium 141 (137-145) mmol/L Potassium 4.0 (3.5-5.1) mmol/L Chloride 107 (98-107) mmol/L Carbon Dioxide 27 (22-30) mmol/L Anion Gap 7 mmol/L BUN 10 (7-17) mg/dL Creatinine 0.62 (0.52-1.04) mg/dL Est GFR (CKD-EPI)AfAm >90 (>60 ml/min/1.73 sqM) Est GFR (CKD-EPI)NonAf >90 (>60 ml/min/1.73 sqM) Glucose 102 H (74-99) mg/dL Calcium 9.5 (8.4-10.2) mg/dL Magnesium 2.0 (1.6-2.3) mg/dL Total Bilirubin 0.7 (0.2-1.3) mg/dL AST 39 H (14-36) U/L ALT 28 (4-34) U/L Alkaline Phosphatase 104 (38-126) U/L Troponin I (0.000-0.034) ng/mL NT-Pro-B Natriuret Pep pg/mL Total Protein 7.5 (6.3-8.2) g/dL Albumin 4.4 (3.5-5.0) g/dL 12/17/19 12/17/19 Range/Units 13:01 13:01 WBC (3.8-10.6) k/uL RBC (3.80-5.40) m/uL Hgb (11.4-16.0) gm/dL Hct (34.0-46.0) % MCV (80.0-100.0) fL MCH (25.0-35.0) pg MCHC (31.0-37.0) g/dL RDW (11.5-15.5) % Plt Count (150-450) k/uL Neutrophils % % Lymphocytes % % Monocytes % % Eosinophils % % Basophils % % Neutrophils # (1.3-7.7) k/uL Lymphocytes # (1.0-4.8) k/uL Monocytes # (0-1.0) k/uL Eosinophils # (0-0.7) k/uL Basophils # (0-0.2) k/uL PT (9.0-12.0) sec INR (<1.2) APTT (22.0-30.0) sec Sodium (137-145) mmol/L Potassium (3.5-5.1) mmol/L Chloride (98-107) mmol/L Carbon Dioxide (22-30) mmol/L Anion Gap mmol/L BUN (7-17) mg/dL Creatinine (0.52-1.04) mg/dL Est GFR (CKD-EPI)AfAm (>60 ml/min/1.73 sqM) Est GFR (CKD-EPI)NonAf (>60 ml/min/1.73 sqM) Glucose (74-99) mg/dL Calcium (8.4-10.2) mg/dL Magnesium (1.6-2.3) mg/dL Total Bilirubin (0.2-1.3) mg/dL AST (14-36) U/L ALT (4-34) U/L Alkaline Phosphatase (38-126) U/L Troponin I <0.012 (0.000-0.034) ng/mL NT-Pro-B Natriuret Pep 182 pg/mL Total Protein (6.3-8.2) g/dL Albumin (3.5-5.0) g/dL Disposition Clinical Impression: Asthma exacerbation Disposition: HOME SELF-CARE Condition: Fair Instructions (If sedation given, give patient instructions): Asthma (ED) Prescriptions: predniSONE 50 mg PO DAILY #5 tab Is patient prescribed a controlled substance at d/c from ED?: No Referrals: Errol Mccollum MD [Primary Care Provider] - 1-2 days Luisito Bello MD [STAFF PHYSICIAN] - 1-2 days Time of Disposition: 15:10
[2019-12-17 15:26] VITALS: BP 140/87; PULSE 97
[2019-12-17] MEDS ORDERED: IPRATROPIUM-ALBUTEROL 3 ML NEB INHALATION SCH (16:00)
[2019-12-17] MEDS ORDERED: methylPREDNISolone SOD SUCCI 125 MG/2 ML VIAL IV SCH (18:00)
== END 2019-12-17 15:24 | disposition home or self-care (01) ==
LOC: EC 12:40 → 4SSUR 14:45 → UNDOADMIN 14:45 → EC 15:24
DX: J45.901 Unspecified asthma with (acute) exacerbation (principal); K21.9 Gastro-esophageal reflux disease without esophagitis; E78.5 Hyperlipidemia, unspecified; E07.9 Disorder of thyroid, unspecified; J45.909 Unspecified asthma, uncomplicated; Z79.890 Hormone replacement therapy; Z79.51 Long term (current) use of inhaled steroids; Z79.82 Long term (current) use of aspirin; Z79.899 Other long term (current) drug therapy; Z91.041 Radiographic dye allergy status; Z85.3 Personal history of malignant neoplasm of breast; Z90.10 Acquired absence of unspecified breast and nipple
CPT/HCPCS: 36415; 93005; 83880; 80053; 83735; 84484; 85025; 85610; 85730; 71275; 99285; 96374; 96375 ×2; J1200; J2930; Q9967

== ENCOUNTER → 2020-03-02 | Outpatient (CLI) | payer MEDICARE ==
--- NOTE | 2020-03-02 17:32 | US ---
EXAMINATION TYPE: US thyroid st tissue head/neck DATE OF EXAM: 03/02/2020 COMPARISON: 08/20/2019 CLINICAL HISTORY: 60-year-old female E04.1 Thyroid nodule. TECHNIQUE: Multiple sonographic images of the thyroid gland are obtained. FINDINGS: GLAND SIZE: Right Lobe: 3.9 x 1.9 x 1.7 cm Overall Parenchyma: heterogenous Left Lobe: 2.7 x 1.0 x 0.7 cm (very small) Overall Parenchyma: heterogeneous Isthmus Thickness: 0.1 cm NODULES RIGHT: # of nodules measured on right: 1 1. 2.7 X 1.7 x 1.7 cm solid or almost completely solid, hyperechoic nodule, which is wider than arturo l, with smooth margins, without echogenic foci. Prior size: 2.7 x 1.7 x 1.7 cm LEFT: # of nodules measured on left: 0 ISTHMUS: # of nodules measured in the isthmus: 0 Bilateral neck scanned, no evidence of lymphadenopathy. IMPRESSION: Solid 2.7 x 1.7 cm nodule within the right lobe of the thyroid gland, unchanged. The left lobe remain s heterogeneous and small.
== END | disposition home or self-care (01) ==
LOC: RADUSWWP 13:36
PROVIDERS: ATTEND Family Medicine
DX: E04.1 Nontoxic single thyroid nodule (principal)
CPT/HCPCS: 76536

== ENCOUNTER → 2020-04-30 | Outpatient (CLI) | payer MEDICARE ==
--- NOTE | 2020-05-03 09:53 | MM ---
Reason for exam: additional evaluation requested from prior study. Last mammogram was performed 1 year and 8 months ago. History: Patient is postmenopausal, has history of breast cancer at age 40, and has history of other cancer at age 40. Implant in the right breast, 2001. Reconstruction of the right breast, 2001. Mastectomy of the right breast, 2001. Chemotherapy, 2001. Saline implants in both breasts, 1994. Took estrogen for 1 year beginning at age 39. Took antineoplastic for 8 years beginning at age 40. Physical Findings: Nurse did not find any significant physical abnormalities on exam. MG 3D Diag Mammo Imp W/Cad LT CC, MLO, and ID view(s) were taken of the left breast. Prior study comparison: August 30, 2018, left breast MG 3d diag mammo imp w/cad LT. August 28, 2017, left breast MG 3d diag mammo imp w/cad LT. The breast tissue is heterogeneously dense. This may lower the sensitivity of mammography. There is chronic nodularity in the left breast. Prepectoral saline implant. No significant new findings when compared with previous films. These results were verbally communicated with the patient and result sheet given to the patient on 04/30/20. ASSESSMENT: Benign, BI-RAD 2 RECOMMENDATION: Follow-up diagnostic mammogram of the left breast in 1 year.
== END ==
LOC: RADMAMWWP 14:14
PROVIDERS: ATTEND Family Medicine
DX: R92.8 Other abnormal and inconclusive findings on diagnostic imaging of breast (principal); Z78.0 Asymptomatic menopausal state; Z85.3 Personal history of malignant neoplasm of breast; Z90.11 Acquired absence of right breast and nipple
CPT/HCPCS: 77065; G0279; 77061

== ENCOUNTER → 2020-07-26 | Outpatient (CLI) | payer MEDICARE ==
--- NOTE | 2020-07-26 13:23 | CT ---
EXAMINATION TYPE: CT soft tissue neck wo con DATE OF EXAM: 07/26/2020 HISTORY: Left neck pain COMPARISON: NONE CT DLP: 292.80 mGycm. Automated Exposure Control for Dose Reduction was Utilized. TECHNIQUE: CT scan of the neck is performed without contrast. FINDINGS: Lack of IV contrast noted to lowers sensitivity for evaluation for medical lesions and subc entimeter neck lymph nodes Airway: Mild 2 moderate biapical pleural/parenchymal scarring slightly more nodular in appearance kristina n typical. Roughly 2.3 cm right thyroid nodule coronal image 37 corresponds to known nodule thyroid ultrasound J anuary 2020. This was sampled 2019. Parotid/submandibular glands: No gross abnormality seen. Carotid/Vascular Structures: Mild calcified plaque bilateral carotid bulb level. Osseous Structures: Reversal of normal cervical curvature with mild/moderate multilevel spurring and disc space narrowing centered at mid cervical spine. Scoliotic curvature on coronal images in the cer vical thoracic spine. Other: Mild to moderate mucosal thickening involving ethmoid sinuses bilaterally. No definitive greater than 1 cm neck adenopathy bilaterally. Prominent but subcentimeter lymph nodes are noted bilaterally. IMPRESSION: Suboptimal study, no obvious mass or adenopathy.
== END | disposition home or self-care (01) ==
LOC: RADCTMAIN 12:23
PROVIDERS: ATTEND Otolaryngology
DX: M54.2 Cervicalgia (principal)
CPT/HCPCS: 70490

== ENCOUNTER → 2020-10-28 | Outpatient (CLI) | payer MEDICARE ==
[2020-10-28 21:50] LABS: Basophils # (A) 0.03 X 10*3/uL (0.00-0.10); Basophils % (A) 0.4 %; Eosinophils # (A) 0.33 X 10*3/uL (0.04-0.35); Eosinophils % (A) 4.7 %; HGB 14.6 g/dL (12.0-15.0); Lymphocytes # (A) 1.53 X 10*3/uL (0.90-5.00); Lymphocytes % (A) 21.9 %; MCH 31.3 pg (27.0-32.0); MCHC 33.2 g/dL (32.0-37.0); MCV 94.4 fL (80.0-97.0); Mean Platelet Volume 10.9 fL (9.5-12.2); Monocytes # (A) 0.79 X 10*3/uL (0.20-1.00); Monocytes % (A) 11.3 %; Neutrophils # (A) 4.29 X 10*3/uL (1.80-7.70); Neutrophils % (A) 61.4 %; Platelet Count 264 X 10*3/uL (140-440); RBC 4.66 X 10*6/uL (4.10-5.20); RDW 13.2 % (11.5-14.5); WBC 6.99 X 10*3/uL (4.50-10.00)
[2020-10-29 04:33] LABS: African American GFR (CKD) 107.6 (60.0-200.0); Albumin 4.5 g/dL (3.80-4.90); Albumin/Globulin Ratio 1.88 (1.60-3.17); Anion Gap 12.9 mmol/L (4.00-12.00); BUN/Creat Ratio 15.71 Ratio (12.00-20.00); Calcium 9.6 mg/dL (8.7-10.3); Carbon Dioxide 25.1 mmol/L (21.6-31.8); Globulin 2.4 g/dL (1.6-3.3); Non-African American GFR(CKD) 92.9 (60.0-200.0); Potassium 3.8 mmol/L (3.5-5.5); Total Bilirubin 0.5 mg/dL (0.2-1.2); Total Protein 6.9 g/dL (6.2-8.2)
[2020-10-29 04:39] LABS: T4, Free (Free Thyroxine) 1.8 ng/dL (0.80-1.80)
[2020-10-29 05:19] LABS: Cancer Antigen 153 11.7 U/mL (0.0-32.3)
== END | disposition home or self-care (01) ==
LOC: LABWHC1 12:01
PROVIDERS: ATTEND Nurse Practitioner Adult Health
DX: E03.9 Hypothyroidism, unspecified (principal); R19.7 Diarrhea, unspecified; Z85.3 Personal history of malignant neoplasm of breast
CPT/HCPCS: 36415; 80053; 82150; 83690; 84439; 84443; 84481; 85025; 86300

== ENCOUNTER → 2020-10-29 | Outpatient (CLI) | payer MEDICARE ==
--- NOTE | 2020-10-29 18:31 | CT ---
EXAMINATION TYPE: CT abdomen pelvis wo con DATE OF EXAM: 10/29/2020 COMPARISON: Abdominal ultrasound 10/03/2017 HISTORY: flank pain. Left lower quadrant pain. CT DLP: 317.2 mGycm Automated exposure control for dose reduction was used. TECHNIQUE: Helical acquisition of images was performed from the lung bases through the pelvis. CONTRAST: Performed without Oral Contrast and without intravenous contrast. Lack of intravenous contrast limits evaluation of the abdominal viscera and vasculature. FINDINGS: LUNG BASES: Normal. LIVER: Normal attenuation and size. BILIARY SYSTEM: Status post cholecystectomy. No intrahepatic or extrahepatic biliary ductal dilatatio n. PANCREAS: No peripancreatic stranding or fluid collection. SPLEEN: Not enlarged. ADRENALS: Normal. KIDNEYS: No hydronephrosis or urolithiasis. BOWEL: No obstruction or thickening. Appendix normal. Colonic diverticulosis. No acute diverticuliti s. PERITONEUM: No pneumoperitoneum. No free fluid. LYMPH NODES: No lymphadenopathy. PELVIS: Status post hysterectomy. Urinary bladder is underdistended with circumferential prominence o f the wall. VASCULATURE: No abdominal aortic aneurysm. MUSCULOSKELETAL: Degenerative changes of the spine. IMPRESSION: There is some circumferential prominence of the urinary bladder wall. Findings may be due to urinary bladder under distention versus cystitis. Recommend correlation with urinalysis.
== END | disposition home or self-care (01) ==
LOC: RADCTMAIN 17:11
PROVIDERS: ATTEND Nurse Practitioner Adult Health
DX: R10.32 Left lower quadrant pain (principal); Z90.49 Acquired absence of other specified parts of digestive tract
CPT/HCPCS: 74176

== ENCOUNTER 2020-12-24 09:59 | Emergency (ER) | payer MEDICARE ==
[2020-12-24] MEDS ORDERED: ONDANSETRON 4 MG/2 ML VIAL IVP STA (10:34)
[2020-12-24] MEDS ORDERED: KETOROLAC 15 MG/ML 1 ML VIAL IVP STA (10:34)
[2020-12-24] MEDS ORDERED: SODIUM CHLORIDE 0.9% 1,000 ML IV STA (10:34)
--- NOTE | 2020-12-24 10:41 | ED ---
Abdominal Pain HPI - General Chief Complaint: Abdominal Pain Stated Complaint: UTI Time Seen by Provider: 12/24/20 10:16 Source: patient, family, RN notes reviewed Mode of arrival: ambulatory Limitations: no limitations - History of Present Illness Initial Comments: Patient is a 60-year-old female with history of asthma, breast cancer in remission, presents emergency Department with complaints of a continued UTI-type symptoms over the past 2 months. Patient states her symptoms started back in October, she saw her primary care physician who prescribed her Bactrim for 10 days. She states her symptoms did improve however about 2 weeks later they came back, she is then placed on Macrobid for 10 days. Again her symptoms improved but then about 2 weeks later now her symptoms have returned. Her symptoms are burning, urgency and frequency. She's also had 2 bouts of diarrhea and is now having suprapubic discomfort as well as referred pain to her back. She denies any fevers or chills. She does have history of fibromyalgia and thinks that so me of her body aches could be from that. She denies any chest pain or shortness of breath, no cough or congestion, no URI type symptoms. She denies any history of kidney disease. She has no further complaints at this time. Her vitals are stable upon arrival. - Related Data Home Medications Medication Instructions Recorded Confirmed Levothyroxine Sodium [Synthroid] 100 mcg PO DAILY 06/30/13 12/24/20 Montelukast [Singulair] 10 mg PO DAILY 06/30/13 12/24/20 Atorvastatin Calcium [Lipitor] 20 mg PO DAILY 09/22/16 12/24/20 Budesonide/Formoterol Fumarate 2 puff INHALATION RT-BID 02/05/19 12/24/20 [Symbicort 160-4.5 Mcg Inhaler] dilTIAZem HCL [Diltiazem HCl] 30 mg PO DAILY 03/11/19 12/24/20 Calcium Carbonate [Calcium] 600 mg PO DAILY 11/26/19 12/24/20 Aspirin EC [Ecotrin Low Dose] 81 mg PO DAILY 12/24/20 12/24/20 Cetirizine HCl [Zyrtec] 10 mg PO DAILY 12/24/20 12/24/20 Cholecalciferol [Vitamin D3 (25 50 mcg PO DAILY 12/24/20 12/24/20 Mcg = 1000 Iu)] Fluticasone Nasal [place] [Flonase 1 spray EA NOSTRIL DAILY PRN 12/24/20 12/24/20 Nasal [place]] Multivitamins, Thera [Multivitamin 1 tab PO DAILY 12/24/20 12/24/20 (formulary)] Nystatin 100,000 Unit/ml Susp 500,000 unit PO QID 12/24/20 12/24/20 [Mycostatin Oral Susp] Pantoprazole [Protonix] 40 mg PO BID 12/24/20 12/24/20 Previous Rx's Medication Instructions Recorded ALPRAZolam [Xanax] 0.5 mg PO HS PRN #12 tab 12/24/20 Allergies Allergy/AdvReac Type Severity Reaction Status Date / Time Iodinated Contrast Media Allergy Eye Verified 12/24/20 11:16 [Iodinated Contrast Media - swelling IV Dye] and itching Review of Systems ROS Statement: Those systems with pertinent positive or pertinent negative responses have been documented in the HPI. ROS Other: All systems not noted in ROS Statement are negative. Past Medical History Past Medical History: Asthma, Cancer, GERD/Reflux, Hyperlipidemia, Osteoarthritis (OA), Thyroid Disorder Additional Past Medical History / Comment(s): BREAST CANCER (in remission.) History of Any Multi-Drug Resistant Organisms: None Reported Past Surgical History: Cholecystectomy, Hysterectomy Additional Past Surgical History / Comment(s): mastectomy 2002, deviated septum Past Anesthesia/Blood Transfusion Reactions: No Reported Reaction Past Psychological History: Anxiety Smoking Status: Never smoker Past Alcohol Use History: Occasional Past Drug Use History: None Reported - Past Family History Mother Family Medical History: No Reported History Additional Family Medical History / Comment(s): alzhemiers Father Family Medical History: Cancer Additional Family Medical History / Comment(s): skin cancer General Exam - General Exam Comments Initial Comments: GENERAL: Patient is well-developed and well-nourished. Patient is nontoxic and in no acute distress. HEAD: Atraumatic, normocephalic. EYES: Pupils equal round and reactive to light, extraocular movements intact, sclera anicteric, conjunctiva are normal. Eyelids were unremarkable. ENT: Moist mucous membranes. NECK: Normal range of motion, supple without lymphadenopathy or JVD. LUNGS: Unlabored respirations. Breath sounds clear to auscultation bilaterally and equal. No wheezes rales or rhonchi. HEART: Regular rate and rhythm without murmurs, rubs or gallops. ABDOMEN: Soft, mild discomfort suprapubic and low back., normoactive bowel sounds. No guarding, no rebound. No masses appreciated. : Deferred MUSCULOSKELETAL: Normal extremities with adequate strength and normal range of motion, no pitting or edema. No clubbing or cyanosis. NEUROLOGICAL: Patient is alert and oriented x 3. Normal speech, normal gait. PSYCH: Normal mood, normal affect. SKIN: Warm, Dry, normal turgor, no rashes or lesions noted. Limitations: no limitations Course Vital Signs 12/24/20 10:07 Temperature 98 F Pulse Rate 96 Respiratory 18 Rate Blood Pressure 117/71 O2 Sat by Pulse 93 L Oximetry Medical Decision Making - Medical Decision Making Patient is a 60-year-old female here with continued UTI symptoms for the past few days. Patient was treated with Bactrim about a month and a half ago for 10 days, and then 2 weeks later was placed on Macrobid for continued symptoms. She has been off of antibiotics for about 2-3 weeks and started having symptoms again. No fevers, vitals are stable. Patient's labs are unremarkable, urine shows no evidence of infection. Patient was given some fluids and Toradol and has been resting comfortably. I discussed these findings with her. I recommen ded seeing a urologist. I will give her referral. Patient also requesting a few tablets of Xanax issues taken this in the past for her fibromyalgia and anxiety, her doctor would not prescribe it to her couple months ago during her last visit, she recommended Prozac instead. Patient does not feel like the Prozac is doing anything and she feels like her anxiety is worsening. I will give her a short prescription for this. I recommended following up with her physician. She is agreeable to this plan of care and she is stable for discharge. - Lab Data Result diagrams: 12/24/20 11:11 12/24/20 11:11 Lab Results 12/24/20 12/24/20 12/24/20 Range/Units 11:11 11:11 11:11 WBC 6.0 (3.8-10.6) k/uL RBC 4.66 (3.80-5.40) m/uL Hgb 14.7 (11.4-16.0) gm/dL Hct 43.8 (34.0-46.0) % MCV 94.0 (80.0-100.0) fL MCH 31.5 (25.0-35.0) pg MCHC 33.5 (31.0-37.0) g/dL RDW 12.8 (11.5-15.5) % Plt Count 230 (150-450) k/uL MPV 7.3 Neutrophils % 73 % Lymphocytes % 12 % Monocytes % 10 % Eosinophils % 2 % Basophils % 0 % Neutrophils # 4.4 (1.3-7.7) k/uL Lymphocytes # 0.7 L (1.0-4.8) k/uL Monocytes # 0.6 (0-1.0) k/uL Eosinophils # 0.1 (0-0.7) k/uL Basophils # 0.0 (0-0.2) k/uL Sodium 133 L (137-145) mmol/L Potassium 3.9 (3.5-5.1) mmol/L Chloride 100 (98-107) mmol/L Carbon Dioxide 28 (22-30) mmol/L Anion Gap 5 mmol/L BUN 10 (7-17) mg/dL Creatinine 0.47 L (0.52-1.04) mg/dL Est GFR (CKD-EPI)AfAm >90 (>60 ml/min/1.73 sqM) Est GFR (CKD-EPI)NonAf >90 (>60 ml/min/1.73 sqM) Glucose 113 H (74-99) mg/dL Calcium 9.3 (8.4-10.2) mg/dL Total Bilirubin 0.5 (0.2-1.3) mg/dL AST 26 (14-36) U/L ALT 25 (4-34) U/L Alkaline Phosphatase 76 (38-126) U/L Total Protein 6.6 (6.3-8.2) g/dL Albumin 3.8 (3.5-5.0) g/dL Urine Color Light Yellow Urine Appearance Clear (Clear) Urine pH 6.5 (5.0-8.0) Ur Specific Melvin 1.011 (1.001-1.035) Urine Protein Negative (Negative) Urine Glucose (UA) Negative (Negative) Urine Ketones Negative (Negative) Urine Blood Negative (Negative) Urine Nitrite Negative (Negative) Urine Bilirubin Negative (Negative) Urine Urobilinogen <2.0 (<2.0) mg/dL Ur Leukocyte Esterase Negative (Negative) Disposition Clinical Impression: Dysuria, Anxiety Disposition: HOME SELF-CARE Condition: Stable Instructions (If sedation given, give patient instructions): Dysuria (ED) Additional Instructions: Please return to the Emergency Department if symptoms worsen or any other concerns. Recommend following up with urology as discussed. Please follow-up with your primary care as well for continued treatment of your anxiety. Prescriptions: ALPRAZolam [Xanax] 0.5 mg PO HS PRN #12 tab PRN Reason: Anxiety Is patient prescribed a controlled substance at d/c from ED?: Yes When asked, does pt state using other controlled substances?: No If prescribed controlled substance>3 days was MAPS reviewed?: Prescribed <3 Days Referrals: Errol Mccollum MD [Primary Care Provider] - 1-2 days Dimitris Levin MD [STAFF PHYSICIAN] - 1-2 days Time of Disposition: 12:18
[2020-12-24 11:27] LABS: Basophils % (A) 0 %; Eosinophils # (A) 0.1 k/uL (0-0.7); Eosinophils % (A) 2 %; HCT 43.8 % (34.0-46.0); HGB 14.7 gm/dL (11.4-16.0); Lymphocytes # (A) 0.7 k/uL (1.0-4.8); Lymphocytes % (A) 12 %; MCH 31.5 pg (25.0-35.0); MCHC 33.5 g/dL (31.0-37.0); Mean Platelet Volume 7.3; Monocytes # (A) 0.6 k/uL (0-1.0); Monocytes % (A) 10 %; Neutrophils # (A) 4.4 k/uL (1.3-7.7); Neutrophils % (A) 73 %; Platelet Count 230 k/uL (150-450); RBC 4.66 m/uL (3.80-5.40); RDW 12.8 % (11.5-15.5)
[2020-12-24 11:37] LABS: ALT 25 U/L (4-34); AST 26 U/L (14-36); African American GFR (CKD) >90 (>60 ml/min/1.73 sqM); Albumin 3.8 g/dL (3.5-5.0); Alkaline Phosphatase 76 U/L (38-126); Anion Gap 5 mmol/L; Blood Urea Nitrogen 10 mg/dL (7-17); Calcium 9.3 mg/dL (8.4-10.2); Carbon Dioxide 28 mmol/L (22-30); Chloride 100 mmol/L (98-107); Glucose 113 mg/dL (74-99); Non-African American GFR(CKD) >90 (>60 ml/min/1.73 sqM); Potassium 3.9 mmol/L (3.5-5.1); Sodium 133 mmol/L (137-145); Total Bilirubin 0.5 mg/dL (0.2-1.3); Total Protein 6.6 g/dL (6.3-8.2)
[2020-12-24 11:40] LABS: Appearance,Urine Clear (Clear); Bilirubin,Urine Negative (Negative); Blood,Urine Negative (Negative); Color,Urine Light Yellow; Glucose,Urine (UA) Negative (Negative); Ketones,Urine Negative (Negative); Leukocyte Esterase,Urine Negative (Negative); Nitrite,Urine Negative (Negative); PH, Urine 6.5 (5.0-8.0); Protein,Urine Negative (Negative); Specific Gravity,Urine 1.011 (1.001-1.035); Urobilinogen,Urine <2.0 mg/dL (<2.0)
[2020-12-24 12:42] VITALS: BP 139/86; PULSE 83; RESP 16; TEMP 97.2
== END 2020-12-24 12:42 | disposition home or self-care (01) ==
LOC: EC 09:59
DX: R30.0 Dysuria (principal); F41.9 Anxiety disorder, unspecified; Z79.82 Long term (current) use of aspirin; J45.909 Unspecified asthma, uncomplicated; K21.9 Gastro-esophageal reflux disease without esophagitis; E78.5 Hyperlipidemia, unspecified; M19.90 Unspecified osteoarthritis, unspecified site; E07.9 Disorder of thyroid, unspecified; Z85.3 Personal history of malignant neoplasm of breast; Z90.49 Acquired absence of other specified parts of digestive tract; Z90.710 Acquired absence of both cervix and uterus
CPT/HCPCS: 99284; 96374; 96375; 96361; 36415; 80053; 85025; 81003; J2405; J1885

== ENCOUNTER → 2021-04-06 | Outpatient (CLI) | payer MEDICARE ==
[2021-04-06 19:53] LABS: HGB 14.9 g/dL (12.0-15.0); MCH 30.8 pg (27.0-32.0); MCHC 32.4 g/dL (32.0-37.0); MCV 95.2 fL (80.0-97.0); Mean Platelet Volume 11.3 fL (9.5-12.2); NRBC Per 100 WBC 0 /100 WBCS (0.0-0.0); Platelet Count 284 X 10*3/uL (140-440); RBC 4.83 X 10*6/uL (4.10-5.20); RDW 13.3 % (11.5-14.5); WBC 6.94 X 10*3/uL (4.50-10.00)
[2021-04-06 20:32] LABS: Erythrocyte Sedimentation Rate 6 mm/Hr (0-30)
[2021-04-06 21:03] LABS: Appearance,Urine Clear (Clear); Bilirubin,Urine Small (Negative); Blood,Urine Negative (Negative); Color,Urine Dark Yellow (Yellow); Ketones,Urine Trace mg/dL (Negative); Leukocyte Esterase,Urine Negative (Negative); Nitrite,Urine Negative (Negative); PH, Urine 5.5 (5.0-8.0); Protein,Urine Negative (Negative); Specific Gravity,Urine 1.023 (1.001-1.030)
[2021-04-06 21:14] LABS: ALT 25 U/L (8-44); AST 21 U/L (13-35); African American GFR (CKD) 101.1 (60.0-200.0); Albumin 4.5 g/dL (3.8-4.9); Albumin/Globulin Ratio 1.94 (1.60-3.17); Alkaline Phosphatase 102 U/L (41-126); BUN/Creat Ratio 22.65 Ratio (12.00-20.00); Blood Urea Nitrogen 16.6 mg/dL (9.0-27.0); C Reactive Protein <0.30 mg/dL (0.00-0.80); Calcium 9.7 mg/dL (8.7-10.3); Chloride 105 mmol/L (96-109); Creatine Kinase 47 U/L (26-186); Globulin 2.3 g/dL (1.6-3.3); Glucose 94 mg/dL (70-110); Magnesium 2.3 mg/dL (1.5-2.4); Non-African American GFR(CKD) 87.2 (60.0-200.0); Potassium 4.1 mmol/L (3.5-5.5); Sodium 145 mmol/L (135-145); Total Protein 6.8 g/dL (6.2-8.2)
[2021-04-07 01:32] LABS: % Iron Saturation 21.64 (12.00-45.00); Ferritin 99.2 ng/mL (10.0-291.0)
[2021-04-07 03:34] LABS: Folate, Serum >20.00 ng/mL (4.40-31.00)
[2021-04-08 09:13] LABS: Vitamin E (Alpha Tocopherol) 1612 ug/dL (500-1800)
[2021-04-08 12:58] LABS: Histone Antibody 0.7 UNITS (<1.0)
[2021-04-08 22:40] LABS: Cyclic Citrull Pep IgG Unit <0.5 U/mL; Cyclic Citrullinated Pep IgG NEGATIVE (NEGATIVE); JO-1 IgG Antibody <0.2 AI
[2021-04-09 00:06] LABS: Anti-Smith Ab Interp NEGATIVE (NEGATIVE); Scleroderma SC-70 Ab <0.2 AI
== END | disposition home or self-care (01) ==
LOC: LABWHC1 15:22
PROVIDERS: ATTEND Psychiatry & Neurology Pain Medicine
DX: M79.7 Fibromyalgia (principal); M25.50 Pain in unspecified joint; G89.4 Chronic pain syndrome; Z79.899 Other long term (current) drug therapy
CPT/HCPCS: 36415; 80053; 81003; 82306; 82550; 82607; 82728; 82746; 83036; 83516; 83519; 83540; 83550; 83735; 84207; 84425; 84446; 84466; 84590; 84591; 84597; 85027; 85652; 86038; 86140; 86200; 86215; 86235

== ENCOUNTER → 2021-05-02 | Outpatient (CLI) | payer MEDICARE ==
--- NOTE | 2021-05-02 10:18 | MM ---
Reason for exam: additional evaluation requested from prior study. Last mammogram was performed 1 year ago. History: Patient is postmenopausal, has history of breast cancer at age 40, and has history of other cancer at age 40. Implant in the right breast, 2001. Reconstruction of the right breast, 2001. Mastectomy of the right breast, 2001. Chemotherapy, 2001. Saline implants in both breasts, 1994. Took estrogen for 1 year beginning at age 39. Took antineoplastic for 8 years beginning at age 40. Physical Findings: A clinical breast exam by your physician is recommended on an annual basis and results should be correlated with mammographic findings. MG 3D Diag Mammo Imp W/Cad LT CC, MLO, and ID view(s) were taken of the left breast. Prior study comparison: April 30, 2020, left breast MG 3d diag mammo imp w/cad LT. August 30, 2018, left breast MG 3d diag mammo imp w/cad LT. There are scattered fibroglandular densities. Implant is intact. No significant new findings when compared with previous films. These results were verbally communicated with the patient and result sheet given to the patient on 05/02/21. ASSESSMENT: Negative, BI-RAD 1 RECOMMENDATION: Routine screening mammogram of the left breast in 1 year.
== END | disposition home or self-care (01) ==
LOC: RADMAMWWP 09:38
PROVIDERS: ATTEND Family Medicine
DX: N64.89 Other specified disorders of breast (principal); Z85.3 Personal history of malignant neoplasm of breast; Z78.0 Asymptomatic menopausal state
CPT/HCPCS: 77065; G0279; 77061

== ENCOUNTER → 2021-06-07 | Outpatient (CLI) | payer MEDICARE ==
--- NOTE | 2021-06-07 16:08 | CT ---
EXAMINATION TYPE: CT iac w con DATE OF EXAM: 06/07/2021 COMPARISON: CT dated 07/26/2020 HISTORY: HEARING LOSS CT DLP: 150.0 mGycm Automated exposure control for dose reduction was used. CONTRAST: CT scan of the IACs is performed with IV Contrast, patient injected with 100ML mL of Isovue 300. FINDINGS: Slightly high riding right jugular bulb. The external auditory canals are patent bilaterally. Mastoi d air cells show no evidence of abnormal opacification bilaterally. The middle ear ossicles are symm etric and unremarkable. There is no evidence of suspicious surrounding soft tissue density to sugges t cholesteatoma. The scutum is preserved bilaterally. The cochlea and the semicircular canals are symmetric and unremarkable. Vestibular aqueduct and inte rnal carotid canal appear unremarkable. Temporomandibular joints are maintained bilaterally. Mucosal thickening of the maxillary sinuses and ethmoid air cells. Suspected tiny right cerebellar infarct. No posterior fossa abnormal enhancement. Grossly unremarkable CP angles. IMPRESSION: Slightly high riding right jugular bulb, otherwise unremarkable CT scan of the temporal bones. Incide ntal findings as described above.
== END | disposition home or self-care (01) ==
LOC: RADCTMAIN 13:19
PROVIDERS: ATTEND Otolaryngology
DX: H91.90 Unspecified hearing loss, unspecified ear (principal)
CPT/HCPCS: 70481; Q9967

== ENCOUNTER → 2021-06-22 | Outpatient (CLI) | payer MEDICARE ==
--- NOTE | 2021-06-22 19:05 | US ---
EXAMINATION TYPE: US carotid duplex BILAT DATE OF EXAM: 06/22/2021 COMPARISON: NONE CLINICAL HISTORY: I51.7 CARDIOMEGALY. EXAM MEASUREMENTS: RIGHT: Peak Systolic Velocity (PSV) cm/sec ----- Right CCA: 77.4 ----- Right ICA: 100.2 ----- Right ECA: 69.1 ICA/CCA ratio: 1.3 RIGHT: End Diastole cm/sec ----- Right CCA: 24.5 ----- Right ICA: 44.2 ----- Right ECA: 14.1 LEFT: Peak Systolic Velocity (PSV) cm/sec ----- Left CCA: 66.0 ----- Left ICA: 103.9 ----- Left ECA: 58.5 ICA/CCA ratio: 1.6 LEFT: End Diastole cm/sec ----- Left CCA: 22.4 ----- Left ICA: 43.4 ----- Left ECA: 58.5 VERTEBRALS (direction of flow): Right Vertebral: Antegrade Left Vertebral: Antegrade Rhythm: Normal No significant stenosis IMPRESSION: 1. Atheromatous plaquing without significant flow-limiting stenosis. Criteria for Assigning % of Stenosis / Diameter reduction (Estimation based on the indirect measurements of the internal carotid artery velocities (ICA PSV). 1. Normal (no stenosis)=ICA PSV < 125 cm/s: ratio < 2.0: ICA EDV<40 cm/s. 2. Less than 50% stenosis=ICA PSV < 125 cm/s: ratio < 2.0: ICA EDV<40 cm/s. 3. 50 to 69% stenosis=ICA PSV of 125 to 230 cm/s: ration 2.0 ? 4.0: ICA EDV 40-100 cm/s. 4. Greater than 70% stenosis to near occlusion= ICA PSV > 230 cm/s: ratio > 4.0: ICA EDV > 100 cm/s. 5. Near occlusion= ICA PSV velocities may be low or undetectable: variable ratio and ICA EDV. 6. Total occlusion=unable to detect flow.
--- NOTE | 2021-06-23 10:34 | CA ---
Transthoracic Echo Report Name: Lynne Flaherty Age: 61 Gender: F : 1960 Exam Date: 06/22/2021 15:07 Exam Location: [facility] Echo Ht (in): 67 Wt (lb): 152 Ordering Physician: Errol Mccollum MD Attending/Referring Phys: Bonnie Oro [facility] Accounting Coordinator Samantha Rainey RDCS Procedure CPT: Indications: G45.9 Cardiac Hx: Technical Quality: Fair Contrast 1: Total Dose (mL): Contrast 2: Total Dose (mL): MEASUREMENTS (Male / Female) Normal Values 2D ECHO LV Diastolic Diameter PLAX 4.0 cm 4.2 - 5.9 / 3.9 - 5.3 cm LV Systolic Diameter PLAX 3.1 cm IVS Diastolic Thickness 1.1 cm 0.6 - 1.0 / 0.6 - 0.9 cm LVPW Diastolic Thickness 1.2 cm 0.6 - 1.0 / 0.6 - 0.9 cm LV Relative Wall Thickness 0.6 RV Internal Dim ED PLAX 1.9 cm LA Systolic Diameter LX 3.1 cm 3.0 - 4.0 / 2.7 - 3.8 cm LV Diastolic Volume MOD 4C 67.8 cm??? LV Systolic Volume MOD 4C 34.5 cm??? LV Ejection Fraction MOD 4C 49.0 % LV Diastolic Length 4C 6.5 cm LV Systolic Length 4C 5.4 cm LV Diastolic Volume MOD 2C 88.6 cm??? LV Systolic Volume MOD 2C 46.4 cm??? LV Ejection Fraction MOD 2C 47.6 % LV Diastolic Length 2C 7.1 cm LV Systolic Length 2C 5.9 cm LA Volume 31.7 cm??? 18 - 58 / 22 - 52 cm??? M-MODE Aortic Root Diameter MM 2.4 cm MV E Point Septal Separation 0.6 cm DOPPLER AV Peak Velocity 118.0 cm/s AV Peak Gradient 5.6 mmHg MV Area PHT 2.2 cm??? Mitral E Point Velocity 44.3 cm/s Mitral A Point Velocity 58.9 cm/s Mitral E to A Ratio 0.8 MV Deceleration Time 338.1 ms FINDINGS Left Ventricle Left ventricular ejection fraction is estimated at 45-50 %. Borderline left ventricular hypertrophy. Left ventricular cavity size normal. Right Ventricle Normal right ventricular size and function. Right Atrium Normal right atrial size. Left Atrium Normal left atrial size. No evidence for an atrial septal defect. Mitral Valve Structurally normal mitral valve. No mitral stenosis, regurgitation or prolapse. Aortic Valve Aortic valve not well visualized. Tricuspid Valve Structurally normal tricuspid valve. No tricuspid stenosis, regurgitation or prolapse. Pulmonic Valve Pulmonic valve not well visualized. Pericardium Normal pericardium. Aorta Normal size aortic root and proximal ascending aorta. CONCLUSIONS Mild left frontal hypertrophy left ventricle ejection fraction of about 50%, Mild septal hypokinesis Previewed by: Dr. Abhay Myers MD (Electronically Signed) Final Date: 23 Jun 2021 10:33
== END | disposition home or self-care (01) ==
LOC: RADUSWWP 14:14
PROVIDERS: ATTEND Family Medicine
DX: I65.23 Occlusion and stenosis of bilateral carotid arteries (principal); I51.7 Cardiomegaly
CPT/HCPCS: 93306; 93880

== ENCOUNTER → 2021-10-06 | Outpatient (CLI) | payer MEDICARE ==
--- NOTE | 2021-10-06 12:52 | BD ---
EXAMINATION TYPE: Axial Bone Density DATE OF EXAM: 10/06/2021 COMPARISON: NONE CLINICAL HISTORY: 61 years year old Female. ICD-10 CODE: C50.111 MALIGNANT NEOPLASM OF CENTRAL PORTI ON OF R Height: 65.25 Weight: 146.4 FRAX RISK QUESTIONS: Alcohol (3 or more units per day): NO Family History (Parent hip fracture): NO Glucocorticoids (More than 3mos): NO History of Fracture in Adulthood: NO Secondary Osteoporosis: 1. Type 1 Diabetes: NO 2. Hyperthyroidism: NO 3. Menopause before 45: YES 4. Malnutrition: NO 5. Chronic liver disease: NO Rheumatoid Arthritis: NO Current Tobacco Use: NO RISK FACTORS HISTORY OF: Hip Fracture (Right/Left): NO Spine Fracture: NO History of Wrist Fracture: NO Surgery to Spine/Hip(right/left)/Wrist (right/left): NO Family History of Osteoporosis: NO Active: YES Diet low in dairy products/other sources of calcium: YES Postmenopausal woman: YES Take estrogen and/or progesterone medications: NO Lost more than 2 inches in height since high school: NO Frequent falls: NO Poor Health: NO Hyperparathyroidism: NO Adrenal Insufficiency: NO MEDICATIONS: Prednisone or other steroids: NO Thyroid Medications: SYNTHROID How Long: PAST 10 YEARS Osteoporosis Medications: NO Additional Medications: ATORVASTATIN, REFLUX MEDS, CALCIUM, MULTI VIT Additional History: BREAST CANCER 2001 WITH CHEMO EXAM MEASUREMENTS: Bone mineral densitometry was performed using the [employer] System. Bone mineral density as measured about the Lumbar spine is: ----- L1-L4(G/cm2): 0.914 T Score Values are as follows: ----- L1: -2.5 ----- L2: -2.4 ----- L3: -2.2 ----- L4: -1.7 ----- L1-L4: -2.2 Bone mineral density has: DECREASED 6.8 % since study of: 01/29/2012 Bone mineral density about the R hip (g/cm2): 0.717 Bone mineral density about the L hip (g/cm2): 0.701 T Score values are as follows: -----R Neck: -2.3 -----L Neck: -2.4 -----R Total: -2.7 -----L Total: -2.3 Bone mineral density has: DECREASED 8 % since study of: 01/29/2012 FRAX%s: The graph provided illustrates a 12.4% chance for a major osteoporotic fx and a 2.4% chance f or the hips probability for fx in 10 years time. IMPRESSION: Osteoporosis (T Score less than -2.5). There is increased fracture risk and therapy is usually indicated based on age. Re-Screen 1-2 years. NOTE: T-SCORE=SD OF THE YOUNG ADULT MEAN.
== END | disposition home or self-care (01) ==
LOC: RADBDWWP 11:18
PROVIDERS: ATTEND Internal Medicine Hematology & Oncology
DX: C50.111 Malignant neoplasm of central portion of right female breast (principal); M81.0 Age-related osteoporosis without current pathological fracture
CPT/HCPCS: 77080

== ENCOUNTER → 2022-03-02 | Outpatient (CLI) | payer MEDICARE ==
--- NOTE | 2022-03-02 16:46 | US ---
EXAMINATION TYPE: US thyroid st tissue head/neck DATE OF EXAM: 03/02/2022 COMPARISON: 02/28/2021 CLINICAL HISTORY: 62-year-old female E04.1 NONTOXIC SINGLE THYROID NODULE. F/u exam, previous biopsy 2019 of right nodule TECHNIQUE: Multiple sonographic images of the thyroid gland are obtained. FINDINGS: GLAND SIZE: Right Lobe: 3.2 x 1.8 x 2.2 cm Overall Parenchyma: heterogenous Left Lobe: 4.3 x 0.6 x 1.1 cm Overall Parenchyma: heterogeneous Isthmus Thickness: 0.2 cm NODULES RIGHT: # of nodules measured on right: 1 - previously biopsied 1. 2.5 X 1.9 x 1.7 cm, mid, solid or almost completely solid, isoechoic TR3 nodule, which is wider than tall, with smooth margins, without echogenic foci. Prior size: 2.8 x 1.9 x 1.6 cm LEFT: # of nodules measured on left: 0 ISTHMUS: # of nodules measured in the isthmus: 0 Bilateral neck scanned, no evidence of lymphadenopathy. IMPRESSION: Solitary TR3 nodule within the right lobe currently measuring 2.5 x 1.9 cm (versus 2.8 x 1.9 cm, prev iously). The supervisor furnace process reports that this corresponds to a previously biopsied nodule. No new nodule s seen.
== END | disposition home or self-care (01) ==
LOC: RADUSWWP 13:41
PROVIDERS: ATTEND Otolaryngology
DX: E04.1 Nontoxic single thyroid nodule (principal); R22.0 Localized swelling, mass and lump, head
CPT/HCPCS: 76536

== ENCOUNTER → 2022-05-09 | Outpatient (CLI) | payer MEDICARE ==
--- NOTE | 2022-05-10 08:44 | MM ---
Reason for Exam: Screening (asymptomatic). Last screening mammogram was performed 12 month(s) ago. Patient History: Menarche at age 10. First Full-Term at age 17. Left ovary removed at age 39. Right ovary removed at age 39. Hysterectomy at age 39. Postmenopausal. Other cancer, age 40. Breast cancer, right, age 40. Estrogen, starting at age 39 for 1 year. 2001, Mastectomy on the Right side. 2001, Chemotherapy. 2001, Implant on the right side. 1994, Bilateral Implants. 2001, Implant on the right side. Prior Study Comparison: 08/30/2018 Left Diagnostic Mammogram, [facility]. 04/30/2020 Left Diagnostic Mammogram, [facility]. 05/02/2021 Left Diagnostic Mammogram, [facility]. Tissue Density: There are scattered fibroglandular densities. Findings: Analyzed By CAD. Left breast implant is redemonstrated. Benign-appearing vascular calcifications left breast is again seen. There is no suspicious group of microcalcifications or new suspicious mass in the left breast. Overall Assessment: Benign, BI-RAD 2 Management: Screening Mammogram of the left breast in 1 year. A clinical breast exam by your physician is recommended on an annual basis and results should be correlated with mammographic findings. Electronically signed and approved by: Gaurang Frank M.D.
== END | disposition home or self-care (01) ==
LOC: RADMAMWWP 16:35
PROVIDERS: ATTEND Family Medicine
DX: Z12.31 Encounter for screening mammogram for malignant neoplasm of breast (principal); Z78.0 Asymptomatic menopausal state; Z85.3 Personal history of malignant neoplasm of breast; Z90.11 Acquired absence of right breast and nipple; Z98.82 Breast implant status
CPT/HCPCS: 77063; 77067

== ENCOUNTER → 2022-09-28 | Outpatient (CLI) | payer MEDICARE ==
[2022-09-28 17:01] LABS: Basophils # (A) 0.01 X 10*3/uL (0.00-0.10); Basophils % (A) 0.2 %; Eosinophils # (A) 0.05 X 10*3/uL (0.04-0.35); Eosinophils % (A) 0.8 %; HCT 44.1 % (37.2-46.3); HGB 14.8 d/dL (12.0-15.0); Lymphocytes # (A) 1.47 X 10*3/uL (0.90-5.00); MCHC 33.6 d/dL (32.0-37.0); MCV 92.5 FL (80.0-97.0); Mean Platelet Volume 10.3 FL (9.5-12.2); Monocytes # (A) 0.69 X 10*3/uL (0.20-1.00); Monocytes % (A) 11.3 %; NRBC Per 100 WBC 0 X 10*3/uL (0.00-0.01); Neutrophils # (A) 3.89 X 10*3/uL (1.80-7.70); Neutrophils % (A) 63.4 %; Platelet Count 298 X 10*3/uL (140-440); RBC 4.77 X 10*6/uL (4.10-5.20); RDW 13.8 % (11.5-14.5); WBC 6.13 X 10*3/uL (4.50-10.00)
[2022-09-28 20:26] LABS: % Iron Saturation 24.04 (12.00-45.00); ALT 21 U/L (8-44); AST 23 U/L (13-35); Albumin 4.1 d/dL (3.8-4.9); Albumin/Globulin Ratio 1.78 Ratio (1.60-3.17); Alkaline Phosphatase 123 U/L (41-126); BUN/Creat Ratio 15.12 Ratio (12.00-20.00); Blood Urea Nitrogen 12.1 mg/dL (9.0-27.0); Calcium 9.1 mg/dL (8.7-10.3); Carbon Dioxide 27.3 mmol/L (21.6-31.8); Chloride 105 mmol/L (96-109); Chol/HDL Ratio 2.82 Ratio; Creatine Kinase 57 U/L (26-186); Ferritin 58.8 ng/mL (10.0-291.0); Globulin 2.3 d/dL (1.6-3.3); Glucose 103 mg/dL (70-110); Iron 81 UG/DL (50-170); LDL Cholesterol,Calculated 119.6 mg/dL (0.0-131.0); Potassium 3.5 mmol/L (3.5-5.5); Sodium 144 mmol/L (135-145); T4, Free (Free Thyroxine) 1.65 ng/dL (0.80-1.80); Total Bilirubin 0.5 mg/dL (0.3-1.2); Total Iron Binding Capacity 337 UG/DL (228-460); Total Protein 6.4 d/dL (6.2-8.2)
== END | disposition home or self-care (01) ==
LOC: LABWHC1 12:04
PROVIDERS: ATTEND Nurse Practitioner Adult Health
DX: I10 Essential (primary) hypertension (principal); E78.5 Hyperlipidemia, unspecified; E03.9 Hypothyroidism, unspecified; M81.0 Age-related osteoporosis without current pathological fracture; R41.3 Other amnesia; R63.5 Abnormal weight gain
CPT/HCPCS: 36415; 80053; 80061; 82306; 82550; 82607; 82728; 82746; 83036; 83525; 83540; 83550; 84439; 84443; 85025

== ENCOUNTER → 2023-03-05 | Outpatient (CLI) | payer MEDICARE ==
--- NOTE | 2023-03-05 14:41 | US ---
EXAMINATION TYPE: US thyroid st tissue head/neck DATE OF EXAM: 03/05/2023 COMPARISON: US 03/02/2022 CLINICAL INDICATION: Female, 63 years old with history of E04.1 NONTOXIC SINGLE THYROID NODULE; Patie nt denies any signs or symptoms at this time, on thyroid medication GLAND SIZE: Right Lobe: 5.1 x 2.0 x 2.2 cm Overall Parenchyma: homogeneous Left Lobe: 4.1 x 0.7 x 1.2 cm Overall Parenchyma: homogeneous Isthmus Thickness: 0.1 cm NODULES RIGHT: # of nodules measured on right: 1 1. 2.8 X 1.4 x 2.0 cm, mid mid, solid or almost completely solid, isoechoic nodule, which is wider than tall, with smooth margins, without echogenic foci. Prior size: 2.5 x 1.7 x 1.9 cm LEFT: # of nodules measured on left: 0 ISTHMUS: # of nodules measured in the isthmus: 0 Bilateral neck scanned, no evidence of lymphadenopathy. IMPRESSION: A solitary 2.8 cm solid TR 3 nodule within the right midpole, slightly larger compared to 2.5 cm, pre viously. 2017 ACR TI-RADS LEVEL: TR-RADS 3 - Mildly Suspicious: Follow if > 1.5 cm, FNA if > 2.5 cm *Highest TI-RADS level nodule reported
== END | disposition home or self-care (01) ==
LOC: RADUSWWP 13:38
PROVIDERS: ATTEND Otolaryngology
DX: E04.1 Nontoxic single thyroid nodule (principal)
CPT/HCPCS: 76536

== ENCOUNTER → 2023-03-20 | Day surgery (SDC) | payer MEDICARE ==
[2023-01-30 14:01] VITALS: BMI 26.6
[~2023-03-20] MED LIST changes: -DEXAMETHASONE SOD PHOSPHATE 10 MG/ML 1 ML VIAL IV ONE; -HEPARIN SODIUM,PORCINE 5,000 UNIT/ML 1 ML VIAL SQ ONE; -HYDROmorphone 0.5 MG/0.5 ML SYRINGE IVP PRN; +LIDOCAINE 1% (10MG/ML) FOR IV START INTRADERMA PRN; +MIDAZOLAM 2 MG/2 ML VIAL ONE; -ONDANSETRON 4 MG/2 ML VIAL IVP ONE; +PROPOFOL 10 MG/ML 20 ML VIAL IV ONE; -SCOPOLAMINE 1.5MG/72HR PATCH TRANSDERM ONE; +fentaNYL (PF) 50 MCG/ML 2 ML AMP ONE
[2023-03-20 07:20] VITALS: TEMP 97.7
--- NOTE | 2023-03-20 07:52 | P.PCN ---
Date of Procedure: 03/20/23 Procedure(s) Performed: Brief history: Patient is a pleasant 63-year-old white male scheduled for an elective upper endoscopy as well as colonoscopy as a part of evaluation of GERD and screening for colon cancer Procedure performed: Esophagogastroduodenoscopy with biopsy. Colonoscopy with biopsy Preoperative diagnosis: GERD Screening for colon cancer Anesthesia: MAC Procedure: After informed consent was obtained from the patient was brought into the endoscopy unit and IV sedation was administered by anesthesia under continuous monitoring. Initially upper endoscopy was done. The Olympus GF 160 video endoscope was inserted inserted into the mouth and esophagus intubated without any difficulty and was gradually advanced into the stomach and duodenum and carefully examined. The bulb and second part of the duodenum appeared normal. The scope was then withdrawn into the stomach adequately insufflated with air and upon careful examination the antrum had mild gastritis and biopsies were done from this area. Mucosa of the body, cardia and fundus appeared normal. The scope was then withdrawn into the esophagus. Small hiatal hernia noted. The GE junction was located at 36 cm to the incisors. It appeared regular with no erythema erosions or ulcerations. Rest of the esophagus appeared normal. Patient tolerated the procedure well. At this time the patient continued to remain sedation. Initial digital rectal examination was normal. Olympus CF 160 video colonoscope was then inserted into the rectum and gradually advanced to the sigmoid and further advancement was not possible because of acute angle duration this area. The scope was removed and a pediatric colonoscope was then inserted in the rectum and gradually advanced into the cecum without any difficulty. Careful examination was performed as the scope was gradually being withdrawn. The prep was excellent. The cecum, appeared normal. Ascending colon there was a 3 mm polyp that was removed by cold biopsy. Rest of the ascending colon, transverse colon, descending colon, sigmoid colon and rectum appeared normal. Scattered sigmoid diverticulosis. Retroflexion was performed in the rectum and no lesions were noted. Patient tolerated the procedure well. Impression: 1. Upper endoscopy revealed mild antral gastritis and small hiatal hernia 2. Colonoscopy revealed 3 mm ascending colon polyps is post cold biopsy and scattered sigmoid diverticulosis Recommendations: Findings of this examination were discussed with the patient as well as her family. She was advised to follow with the biopsy results. Continue with Protonix 40 mg daily and follow antireflux measures. If the biopsy results adenoma he can she can have a repeat colonoscopy in 5 years.
[2023-03-20 08:48] VITALS: BP 166/97; PULSE 69; RESP 14
== END ==
LOC: ORWHC2ENDO 06:29
PROVIDERS: ATTEND Internal Medicine Gastroenterology
DX: Z12.11 Encounter for screening for malignant neoplasm of colon (principal); K29.50 Unspecified chronic gastritis without bleeding; K63.5 Polyp of colon; K44.9 Diaphragmatic hernia without obstruction or gangrene; K57.30 Diverticulosis of large intestine without perforation or abscess without bleeding; K21.9 Gastro-esophageal reflux disease without esophagitis; E78.5 Hyperlipidemia, unspecified; J45.909 Unspecified asthma, uncomplicated; E03.9 Hypothyroidism, unspecified; Z87.891 Personal history of nicotine dependence; Z79.51 Long term (current) use of inhaled steroids; Z79.890 Hormone replacement therapy; Z79.899 Other long term (current) drug therapy; Z90.710 Acquired absence of both cervix and uterus; Z91.041 Radiographic dye allergy status
CPT/HCPCS: 45380; 43239; J2250; J3010; J2704; 88305

== ENCOUNTER → 2023-06-19 | Outpatient (CLI) | payer MEDICARE ==
--- NOTE | 2023-06-20 07:54 | MM ---
Reason for Exam: Screening (asymptomatic). Last mammogram was performed 1 year(s) and 1 month(s) ago. Patient History: Menarche at age 10. First Full-Term at age 17. Left ovary removed at age 39. Right ovary removed at age 39. Hysterectomy at age 39. Postmenopausal. Other cancer, age 40. Breast cancer, right, age 40. Estrogen, starting at age 39 for 1 year. 2001, Mastectomy on the Right side. 2001, Chemotherapy. 2001, Implant on the right side. 1994, Bilateral Implants. 2001, Implant on the right side. Prior Study Comparison: 04/30/2020 Left Diagnostic Mammogram, [facility]. 05/02/2021 Left Diagnostic Mammogram, [facility]. 05/09/2022 Bilateral MG 3D screening mammo w/cad, [facility]. Tissue Density: There are scattered areas of fibroglandular density. Findings: Analyzed By CAD. Bilateral breast implants appear intact. Left breast: There is no suspicious group of microcalcifications or new suspicious mass. Overall Assessment: Negative, BI-RAD 1 Management: Screening Mammogram of both breasts in [address] [facility] will attempt to contact patient to return for supplemental views and ultrasound if indicated. Patient should continue monthly self-breast exams. A clinical breast exam by your physician is recommended on an annual basis. This exam should not preclude additional follow-up of suspicious palpable abnormalities. Note on Anne scores and lifetime risk: 1. A Anne score greater than 3% is considered moderate risk. If this is the case, consider specialist referral to assess eligibility for a risk reducing agent. 2. If overall lifetime risk for the development of breast cancer is 20% or higher, the patient may qualify for future screening with alternating mammogram and breast MRI. Electronically signed and approved by: Rubio Hodgson DO
== END | disposition home or self-care (01) ==
LOC: RADMAMWWP 13:38
PROVIDERS: ATTEND Internal Medicine Hematology & Oncology
DX: Z12.31 Encounter for screening mammogram for malignant neoplasm of breast (principal); Z78.0 Asymptomatic menopausal state; Z80.3 Family history of malignant neoplasm of breast
CPT/HCPCS: 77063; 77067

== ENCOUNTER → 2023-12-07 | Outpatient (CLI) | payer MEDICARE ==
--- NOTE | 2023-12-07 15:12 | BD ---
EXAMINATION TYPE: c Bone Density DATE OF EXAM: 12/07/2023 CLINICAL HISTORY: 63 years old Female. ICD-10 CODE: M810 AGE RELATED OSTEO Height: 65 Weight: 168 FRAX RISK QUESTIONS: Glucocorticoids (More than 3mos): yes, prednisone and asthma inhalers for many yrs (Ex: prednisone, prednisolone, methylprednisolone, dexamethasone, and hydrocortisone). Secondary Osteoporosis: yes 3. Menopause before 45: yes RISK FACTORS HISTORY OF: breast cancer 2001, hx of chemo MEDICATIONS: cholesterol meds, reflux meds, calcium, multivitamin, bp meds, hx of chemo, vit d, Thyroid Medications: yes, synthroid product for about 15 yrs Osteoporosis Medications: fosamax, for about 2 yrs EXAM MEASUREMENTS: Bone mineral densitometry was performed using the [employer]. Bone mineral density as measured about the Lumbar spine is: ----- L1-L4(G/cm2): 0.951 T Score Values are as follows: ----- L1: -2.5 ----- L2: -2.5 ----- L3: -1.5 ----- L4: -1.4 ----- L1-L4: -1.9 Z Score Values are as follows: ----- L1: -1.2 ----- L2: -1.3 ----- L3: -0.3 ----- L4: -0.2 ----- L1-L4: -0.7 Bone mineral density has: Increased 4.0% since study of: 10.06.2021 Bone mineral density about the R hip (g/cm2): 0.646 Bone mineral density about the L hip (g/cm2): 0.686 T Score values are as follows: -----R Neck: -2.3 -----L Neck: -2.7 -----R Total: -2.8 -----L Total: -2.6 Z Score values are as follows: -----R Neck: -1.1 -----L Neck: -1.4 -----R Total: -1.9 -----L Total: -1.6 Bone mineral density has: Decreased -3.5% since study of: 10.06.2021 FRAX%s: The graph provided illustrates a 22.5% chance for a major osteoporotic fx and a 6.2% chance f or the hips probability for fx in 10 years time. IMPRESSION: Osteoporosis (T Score less than -2.5). There is increased fracture risk and therapy is usually indicated based on age. Re-Screen 1-2 years. NOTE: T-SCORE=SD OF THE YOUNG ADULT MEAN. [facility], , 12/07/2023 3:09 PM
== END | disposition home or self-care (01) ==
LOC: RADBDWWP 13:38
PROVIDERS: ATTEND Family Medicine
CPT/HCPCS: 77080

== ENCOUNTER → 2024-04-25 | Outpatient (CLI) | payer MEDICARE | END | disposition home or self-care (01) | LOC: LABWHC1 10:22 | PROVIDERS: ATTEND Internal Medicine | DX: J45.909 Unspecified asthma, uncomplicated (principal) | CPT/HCPCS: 36415; 82785; 85008 ==

== ENCOUNTER → 2024-08-05 | Outpatient (CLI) | payer MEDICARE ==
--- NOTE | 2024-08-05 13:33 | US ---
EXAMINATION TYPE: US thyroid st tissue head/neck DATE OF EXAM: 08/05/2024 COMPARISON: 03/05/2023 CLINICAL INDICATION: Female, 64 years old with history of E04.1 NONTOXIC SINGLE THYROID NODULE; Patie nt denies any changes from prior TECHNIQUE: Grayscale and color Doppler imaging of the thyroid gland. FINDINGS: GLAND SIZE: Right Lobe: 4.4 x 2.0 x 2.2 cm Overall Parenchyma: heterogeneous Left Lobe: 3.4 x 1.0 x 1.0 cm Overall Parenchyma: heterogeneous Isthmus Thickness: 0.1 cm NODULES RIGHT: # of nodules measured on right: 1 1. 3.0 X 1.4 x 1.8 cm, mid mid, Prior size: 2.8 x 1.4 x 2.0 cm TIRADS Score: 3 TIRADS Category 3: Composition: Solid or almost completely solid (2 points). Echogenicity: Hyperechoic or isoechoic (1 point). Shape: Wider than tall (0 points). Margin: Smooth (0 points). Echogenic foci: None or large comet-tail artifacts (0 points) Recommendation: If >2.5cm: FNA; If >1.5cm: Follow up at 1,3,5 years LEFT: # of nodules measured on left: 0 ISTHMUS: # of nodules measured in the isthmus: 0 Bilateral neck scanned, no evidence of lymphadenopathy. IMPRESSION: Right thyroid nodule that meet criteria for biopsy if not already performed. Highest TI-RADS level nodule reported: 2017 ACR TI-RADS LEVEL: TI-RADS 3 - Mildly Suspicious: Follow if > 1.5 cm, FNA if > 2.5 cm TI-RADS assessment score and recommendation for follow-up based on appropriate scoring and treatment protocols. TR1 Benign No FNA TR2 Not suspicious No FNA TR3: If nodule size is ? 2.5 cm, FNA is recommended. If nodule size is ? 1.5 cm, follow-up imaging at 1, 3, and 5 years is recommended. TR4: If nodule size is ? 1.5 cm, FNA is recommended. If nodule size is ? 1.0 cm, follow-up imaging at 1, 2, 3, and 5 years is recommended. TR5: If nodule size is ? 1.0 cm, FNA is recommended. If nodule size is ? 0.5 cm, annual follow-up for up to 5 years is recommended. TR 1 thyroid nodules have a 0.3 % risk of malignancy. TR 2 thyroid nodules have a 1.5 % risk of malignancy. TR 3 thyroid nodules have a 4.8 % risk of malignancy. TR 4 thyroid nodules have a 9.1 % risk of malignancy. TR 5 thyroid nodules have a 35 % risk of malignancy. [email or web address] [facility], , 08/05/2024 1:31 PM
== END | disposition home or self-care (01) ==
LOC: RADUSWWP 10:59
PROVIDERS: ATTEND Family Medicine
DX: E04.1 Nontoxic single thyroid nodule (principal)
CPT/HCPCS: 76536

== ENCOUNTER → 2024-09-01 | Outpatient (CLI) | payer MEDICARE ==
--- NOTE | 2024-09-01 14:27 | MM ---
Reason for Exam: Hx of breast cancer, mastectomy. Last mammogram was performed 1 year(s) and 3 month(s) ago. Patient History: Menarche at age 10. First Full-Term at age 17. Left ovary removed at age 39. Right ovary removed at age 39. Hysterectomy at age 39. Postmenopausal. Other cancer, age 40. Breast cancer, right, age 40. Previous chemotherapy at age 40. Estrogen, starting at age 39 for 1 year. 2001, Mastectomy on the Right side. 2001, Chemotherapy. 2001, Implant on the right side. 1994, Bilateral Implants. 2001, Implant on the right side. Prior Study Comparison: 08/28/2017 Left Diagnostic Mammogram, [facility]. 08/30/2018 Left Diagnostic Mammogram, [facility]. 04/30/2020 Left Diagnostic Mammogram, [facility]. 05/02/2021 Left Diagnostic Mammogram, [facility]. 05/09/2022 Bilateral MG 3D screening mammo w/cad, [facility]. 06/19/2023 Bilateral MG 3D screen mammo imp/cad., [facility]. Tissue Density: Left: There are scattered areas of fibroglandular density. Findings: Analyzed By CAD. There is no suspicious group of microcalcifications or new suspicious mass in the left breast. Breast implant is intact. Overall Assessment: Benign, BI-RAD 2 Management: Screening Mammogram of both breasts in 1 year. . Patient should continue monthly self-breast exams. A clinical breast exam by your physician is recommended on an annual basis. This exam should not preclude additional follow-up of suspicious palpable abnormalities. Note on Anne scores and lifetime risk: 1. A Anne score greater than 3% is considered moderate risk. If this is the case, consider specialist referral to assess eligibility for a risk reducing agent. 2. If overall lifetime risk for the development of breast cancer is 20% or higher, the patient may qualify for future screening with alternating mammogram and breast MRI. [facility], , 09/01/2024 2:24 PM. Electronically signed and approved by: Phong Johnson M.D. [facility]
== END | disposition home or self-care (01) ==
LOC: RADMAMWWP 13:39
PROVIDERS: ATTEND Family Medicine
DX: Z12.31 Encounter for screening mammogram for malignant neoplasm of breast (principal); R92.323 Mammographic fibroglandular density, bilateral breasts; Z78.0 Asymptomatic menopausal state; Z80.3 Family history of malignant neoplasm of breast; Z85.3 Personal history of malignant neoplasm of breast
CPT/HCPCS: 77067